=== PATIENT | male | born 1940 ===

== ENCOUNTER 2016-10-11 22:15 | Inpatient (IN) | payer MEDICARE, OTHER ==
[2016-10-11 22:15] VITALS: BMI 18.3
--- NOTE | 2016-10-11 22:46 | C.PDOC ---
History Of Present Illness 76 year old male presents to the ED with complaints of shortness of breath and general malaise. Patient's granddaughter notes he has had not been eating for the past few days. Patient denies any nausea, vomiting, or diarrhea. Chief Complaint (Nursing): Shortness Of Breath History Per: Family (granddaughter ) History/Exam Limitations: no limitations Onset/Duration Of Symptoms: Days Current Symptoms Are (Timing): Still Present Associated Symptoms: denies: Fever, Chills Past Medical History Vital Signs: Last Vital Signs Temp 97.2 F L 10/12/16 16:00 Pulse 114 H 10/12/16 16:37 Resp 17 10/12/16 16:37 BP 111/69 10/12/16 16:37 Pulse Ox 96 10/12/16 16:37 - Medical History PMH: Anemia, Arthritis, COPD, Emphysema, Fractures (ribs), HTN (no longer), Hypercholesterolemia, Malignancy (Lung, in remission) Comment Only: Chronic Kidney Disease (renal insufficiency) Surgical History: Endoscopy, Hernia Repair - [facility] Procedures CONTACT RADIATION OF OTHER BONE (08/12/16) CONTROL BLEEDING IN GASTROINTESTINAL TRACT, ENDO (09/02/16) DRAINAGE OF STOMACH WITH DRAINAGE DEVICE, VIA OPENING (09/02/16) INSERTION OF ENDOTRACHEAL AIRWAY INTO TRACHEA, VIA OPENING (09/02/16) RESECTION OF RIGHT TESTIS, OPEN APPROACH (04/18/16) RESPIRATORY VENTILATION, 24-96 CONSECUTIVE HOURS (09/02/16) RESPIRATORY VENTILATION, GREATER THAN 96 CONSECUTIVE HOURS (04/18/16) SUPPLEMENT R INGUINAL REGION WITH SYNTH SUB, OPEN APPROACH (04/18/16) Family History: States: Unknown Family Hx - Social History Hx Tobacco Use: No Hx Alcohol Use: No Hx Substance Use: No - Immunization History Hx Tetanus Toxoid Vaccination: No Hx Influenza Vaccination: No Hx Pneumococcal Vaccination: No Review Of Systems Constitutional: Positive for: Malaise. Negative for: Fever, Chills Respiratory: Positive for: Shortness of Breath Gastrointestinal: Negative for: Nausea, Vomiting, Abdominal Pain, Diarrhea Physical Exam - Physical Exam Appears: Non-toxic, No Acute Distress Skin: Warm, Dry Head: Normacephalic Neck: Normal ROM, Supple Chest: Symmetrical, No Deformity Cardiovascular: Rhythm Regular, No Murmur Respiratory: Decreased Breath Sounds (left lung ), No Rales, Rhonchi (right lung ), No Stridor, No Wheezing, Other (hypoxia pulse rate 91 ) Gastrointestinal/Abdominal: Soft, No Tenderness, No Distention, No Guarding, No Rebound Extremity: Normal ROM, No Tenderness Neurological/Psych: Oriented x3 ED Course And Treatment - Laboratory Results Result Diagrams: 10/12/16 14:08 10/12/16 14:08 ECG: Interpreted By Me, Viewed By Me ECG Rhythm: Sinus Tachycardia (108 bpm), ST/T Changes (nonspecific T wave abnormality) ECG Interpretation: Abnormal (Left axis deviation) Interpretation Of ECG: Left axis deviation - Radiology CXR: Viewed By Me, Read By Radiologist CXR Interpretation: Yes: Other (increased denisty on left side of the lung in comparison to Chest X-Ray done on 09/07/16 ) Disposition Discussed With DrKristen: Dat [facility] Doctor Will See Patient In The: Hospital Counseled Patient/Family Regarding: Diagnosis - Disposition Disposition: HOSPITALIZED Disposition Time: 00:00 Condition: STABLE - POA Present On Arrival: None - Clinical Impression Clinical Impression: Severe dehydration, Renal insufficiency, Carcinoma, lung - Scribe Statement The provider has reviewed the documentation as recorded by the Scribe Roxana Wiggins All medical record entries made by the Scribe were at my direction and personally dictated by me. I have reviewed the chart and agree that the record accurately reflects my personal performance of the history, physical exam, medical decision making, and the department course for this patient. I have also personally directed, reviewed, and agree with the discharge instructions and disposition.
[2016-10-11] MEDS ORDERED: HYDROmorphone 1 mg/ml ISec IVP STA (22:47)
[2016-10-11] MEDS ORDERED: Sodium Chloride 0.9% 500 ML IV ONE ×2 (22:47→23:57)
[2016-10-11] MEDS ORDERED: HYDROmorphone 1 mg/ml ISec ONE (22:59)
[2016-10-11 23:17] LABS: BASO % 0.1 % (0.0-2.0); HEMATOCRIT 28.3 % (35.0-51.0); LYMPH # 0.3 K/uL (1.0-4.3); LYMPH % 2.2 % (20.0-40.0); MEAN CELL VOLUME 91.8 fL (80.0-94.0); MEAN CORPUSCULAR HEMOGLOBIN 28.5 pg (27.0-31.0); MEAN CORPUSCULAR HGB CONC 31.1 g/dL (33.0-37.0); MEAN PLATELET VOLUME 7.3 fL (7.2-11.7); MONO # 0.7 K/uL (0.0-0.8); MONO % 4.2 % (0.0-10.0); NRBC % 0.2 % (0.0-2.0); PLATELET COUNT 179 K/uL (130-400); RED CELL DISTRIBUTION WIDTH 17.5 % (11.5-14.5); WHITE BLOOD COUNT 15.9 K/uL (4.8-10.8)
[2016-10-11 23:26] LABS: POTASSIUM 6.1 mmol/L (3.6-5.2)
[2016-10-11 23:28] LABS: ALB/GLOB RATIO 0.8 (1.0-2.1); BILIRUBIN,TOTAL 1.2 mg/dL (0.2-1.3)
[2016-10-11 23:29] LABS: CALCIUM 9.6 mg/dl (8.6-10.4)
[2016-10-11 23:38] LABS: NEUTROPHIL 91 % (50-75); TOTAL CELLS COUNTED 100
[2016-10-11] MEDS ORDERED: Albuterol 0.042% Inhal Sol (1.25 mg/3 mL) UD IH STA (23:41)
[2016-10-11] MEDS ORDERED: Albuterol 0.042% Inhal Sol (1.25 mg/3 mL) UD ONE (23:57)
[2016-10-12 00:15] LABS: VENOUS BLOOD GAS BASE EXCESS -6.2 mmol/L (0.0-2.0); VENOUS BLOOD GAS PCO2 39 mmHg (40-60); VENOUS BLOOD PH 7.31 (7.32-7.43)
[2016-10-12 00:17] LABS: ABG ALLEN TEST POS; ARTERIAL BLOOD HGB O2 SAT 95.2 % (95.0-98.0); CARBOXYHEMOGLOBIN 1.7 % (0.5-1.5); DRAW SITE RRAD; HHB 2.3 % (0.0-5.0); METHEMOGLOBIN 0.8 % (0.0-3.0)
--- NOTE | 2016-10-12 02:13 | CP.PCM.HP ---
<Keiry Piedra - Last Filed: 10/12/16 05:23> History of Present Illness - History of Present Illness History of Present Illness: CC: "SOB and fatigue" 76 year old male with PMHx of lung cancer with bone mets, DM, CKD presents to the ED with daughter for shortness of breath, malaise and decreased PO intake for 4 days. Patient is asleep, difficult to arouse from sleep and cannot answer ROS at this time. History as per daughter at bedside. Daughter has noticed patient has been intermittently SOB for the past 4 days. He has been eating very little and she has been feeding him Ensure supplement intermittently. No fevers or chills reported but admits to light dry cough. Patient's cough was reportedly worse 2 weeks ago and was given unknown "medicine " by Dr. Forde, which made it better. Daughter also reports patient has been having some episodes of confusion for the past 4 days and has been calling his parents who are long ago . His last chemotherapy was 2 weeks ago. No chest pain, fevers, chills, nausea, vomiting, diarrhea, constipation, hemoptysis , recent falls. No sick contacts or recent travel. Patient was recently admitted in August of 2016 for GI bleed. Duodenal ulcers treated during EGD on 09/02 with bipolar cautery and epinephrine. Patient was also intubated during same admission. PMHx: DMII, HTN, HLD, CKD, Lung CA with bone mets, mediastinal mass in lower right neck, COPD, GI bleed from duodenal ulcers (08/2016). Surg Hx: endovascular stent abdominal aneurysm repair (16 years ago), right incarcerated hernia, lung biopsy. Fam Hx: denies Social Hx: lives alone in apartment with daughters in same building, not- , former smoker, quit 16 years ago, denies drugs, denies alcohol. Ambulates. PMD: Dr. Kaleigh Ocampo Heme/Onc: Dr. Forde Present on Admission - Present on Admission Any Indicators Present on Admission: No History of DVT/PE: No History of Uncontrolled Diabetes: No Urinary Catheter: No Decubitus Ulcer Present: No Review of Systems - Review of Systems Systems not reviewed;Unavailable: Uncooperative - Constitutional Constitutional: absent: Chills, Fever - EENT Eyes: absent: Blurred Vision, Change in Vision - Cardiovascular Cardiovascular: Dyspnea. absent: Chest Pain - Respiratory Respiratory: Cough, Dyspnea. absent: Hemoptysis - Gastrointestinal Gastrointestinal: absent: Abdominal Pain, Constipation, Diarrhea, Nausea, Vomiting - Genitourinary Genitourinary: absent: Difficulty Urinating, Dysuria - Musculoskeletal Musculoskeletal: Back Pain, Myalgias. absent: Numbness, Tingling - Neurological Neurological: Weakness - Endocrine Endocrine: Fatigue. absent: Palpitations Past Patient History - Infectious Disease Hx of Infectious Diseases: None - Past Medical History & Family History Past Medical History?: Yes - Past Social History Smoking Status: Former Smoker - CARDIAC Hx Hypercholesterolemia: Yes Hx Hypertension: Yes (no longer) - PULMONARY Hx Chronic Obstructive Pulmonary Disease (COPD): Yes Hx Emphysema: Yes - NEUROLOGICAL Hx Neurological Disorder: No - HEENT Hx HEENT Problems: Yes Hx Cataracts: Yes - RENAL Hx Chronic Kidney Disease: (renal insufficiency) - ENDOCRINE/METABOLIC Hx Endocrine Disorders: Yes Hx Diabetes Mellitus Type 2: Yes - HEMATOLOGICAL/ONCOLOGICAL Hx Anemia: Yes - INTEGUMENTARY Hx Dermatological Problems: Yes (enlarged lymph node left neck) - MUSCULOSKELETAL/RHEUMATOLOGICAL Hx Arthritis: Yes Hx Fractures: Yes (ribs) - GASTROINTESTINAL Hx Gastrointestinal Disorders: No - GENITOURINARY/GYNECOLOGICAL Hx Genitourinary Disorders: No - PSYCHIATRIC Hx Substance Use: No - SURGICAL HISTORY Hx Surgeries: Yes Hx Abdominal Aortic Aneurysm Repair: Yes Hx Herniorrhaphy: Yes (right ing hernia repair) Hx Vascular Surgery: Yes (aneurysm with stents) - ANESTHESIA Hx Anesthesia: Yes Hx Anesthesia Reactions: No Hx Malignant Hyperthermia: No Meds Allergies/Adverse Reactions: Allergies Allergy/AdvReac Type Severity Reaction Status Date / Time No Known Allergies Allergy Verified 08/21/16 18:25 Physical Exam - Constitutional Appears: No Acute Distress, Chronically Ill - Head Exam Head Exam: NORMAL INSPECTION, NORMOCEPHALIC - Eye Exam Eye Exam: EOMI, Normal appearance - ENT Exam ENT Exam: Mucous Membranes Dry - Neck Exam Additional comments: +mass in right lower neck - Respiratory Exam Respiratory Exam: Rhonchi, NORMAL BREATHING PATTERN. absent: Rales, Wheezes - Cardiovascular Exam Cardiovascular Exam: Tachycardia, REGULAR RHYTHM, +S1, +S2. absent: Systolic Murmur - GI/Abdominal Exam GI & Abdominal Exam: Normal Bowel Sounds, Soft. absent: Distended, Tenderness - Extremities Exam Extremities exam: Positive for: full ROM, normal inspection. Negative for: pedal edema - Neurological Exam Neurological exam: Altered - Skin Skin Exam: Dry, Normal Color, Warm Results - Vital Signs Recent Vital Signs: Last Vital Signs Temp Pulse Resp 19 10/11/16 22:43 BP Pulse Ox 100 10/11/16 22:43 - Labs Result Diagrams: 10/12/16 04:45 10/11/16 23:14 Labs: Laboratory Results - last 24 hr 10/12/16 00:09 Puncture Site Rrad pCO2 41 pO2 88 HCO3 18.4 L ABG pH 7.26 L ABG Total CO2 19.7 L ABG O2 Saturation 97.6 ABG Base Excess -8.3 L ABG Hemoglobin 15.8 ABG Carboxyhemoglobin 1.7 H POC ABG HHb (Measured) 2.3 ABG Methemoglobin 0.8 Wayne Test Pos VBG pH 7.31 L VBG pCO2 39 L VBG HCO3 19.9 VBG Total CO2 20.8 L VBG O2 Sat (Calc) 96.0 H VBG Base Excess -6.2 L VBG Potassium 6.4 H* Hgb O2 Saturation 95.2 Sodium 138.0 Chloride 103.0 Glucose 137 H Lactate 2.4 H Liter Flow 8.0 Crit Value Called To Dr del rio Crit Value Called By Bruce prater rrt Crit Value Read Back N Blood Gas Notified Time 16 Venous Blood Potassium 6.4 H* Assessment & Plan (1) Elevated troponin Assessment and Plan: Admit to Tele. EKG on admission shows sinus Tachycardia (108 bpm), with nonspecific T wave changes. ANDREY #1 elevated 0.1260. f/u ANDREY Q6H f/u EKG Q6H Cardio consult placed- Dr. Robb Mcpherson- help appreciated. Anticoagulation held at this time for recent GI bleed. f/u cardio recs Status: Acute (2) Pneumonia Assessment and Plan: Pneumonia complicated by history of lung cancer. WBC on admission 15.9 with left shift. Tachycardic HR 110's. Afebrile. Lactid Acid: 2.4 on admission. F/u repeat Lactid Acid. CXR shows increased density on left side of the lung in comparison to Chest X- Ray done on 09/07/16. f/u official report Rocephin IVPB- Day 1 Azithromycin IVPB- Day 1 f/u sputum Cx f/u CBC in the AM. Status: Acute (3) Shortness of breath Assessment and Plan: EKG on admission shows sinus Tachycardia (108 bpm), with nonspecific T wave changes. ANDREY #1 elevated 0.1260. f/u ANDREY Q6H f/u EKG Q6H Cardio consult placed- Dr. Robb Mcpherson- help appreciated. Anticoagulation held at this time for recent GI bleed. f/u V/Q Scan. Status: Acute (4) Leukocytosis Assessment and Plan: WBC on admission 15.9 with left shift. Afebrile. Likely secondary to pneumonia seen on CXR. f/u UA, Urine Cx, Blood Cx, sputum Cx. Lactic Acid: 2.4 on admission. f/u repeat lactid acid. f/u CBC in the AM. Status: Acute (5) Renal failure (ARF), acute on chronic Assessment and Plan: BUN 100, Cr 8.1 on admission. Nephro consult placed-Dr. Queen- help appreciated. As per Dr. Queen, no emergent HD at this time. f/u Renal US and IVF. Start NSS at 100 cc/hr. Renal US ordered as per Dr. Queen. Preliminary report shows b/l hydronephrosis and possible non obstructing right lower pole urolith. f/u official report f/u CMP in the AM. f/u UA and C&S Status: Acute (6) Hyperkalemia Assessment and Plan: K+ on admission 6.1 Duoneb Tx given in ED. Kayexalate PO ONCE. f/u CMP in the AM. f/u Mag in the AM. Status: Acute (7) Carcinoma, lung Assessment and Plan: Patient with Mets to the bone and right mediastinal mass in right lower neck. Patient follows with Dr. Forde as outpatient. Recent chemo 2 weeks ago. Radiation as outpatient with Dr. Thomas. Morphine 4 mg IVP Q4H PRN for severe pain Patient's Heme/Onc- Dr. Forde- consulted- Help appreciated. Status: Acute (8) COPD (chronic obstructive pulmonary disease) Assessment and Plan: ABG on admission shows 7.26///18.4/-8.3/97.6 Duonebs Q6H PRN. Status: Chronic (9) Metabolic acidosis Assessment and Plan: ABG on admission: 7.26//88/18.4/-8.3/97.6 Lactid Acid 2.4. f/u repeat Lactid acid. A Status: Acute (10) Diabetes mellitus Assessment and Plan: ISS ACCUCHECKS ACHS Status: Chronic (11) Elevated LFTs Assessment and Plan: AST 84, ALT 28. Improved compared to past visits. f/u Hep panel Status: Acute (12) Prophylactic measure Assessment and Plan: SCDs Chemical AC contraindicated due to history of recent GI bleed 08/2016. Protonix 40 mg IVP daily Swallow eval Physical Therapy Status: Acute <JeffersonDat ernandez Susan - Last Filed: 10/12/16 06:21> Results - Vital Signs Recent Vital Signs: Last Vital Signs Temp 97.7 F 10/12/16 02:44 Pulse 111 H 10/12/16 03:12 Resp 16 10/12/16 03:12 BP 130/79 10/12/16 03:12 Pulse Ox 99 10/12/16 03:12 - Labs Result Diagrams: 10/12/16 04:45 10/12/16 04:45 Labs: Laboratory Results - last 24 hr 10/12/16 10/12/16 10/12/16 00:09 04:45 04:50 WBC 16.8 H RBC 3.18 L Hgb 9.2 L Hct 29.8 L MCV 93.8 D MCH 29.0 MCHC 30.9 L RDW 18.1 H Plt Count 189 MPV 7.4 Neut % (Auto) 92.3 H Lymph % (Auto) 2.5 L Cassia % (Auto) 4.8 Eos % (Auto) 0.0 Baso % (Auto) 0.4 Neut # 15.5 H Lymph # 0.4 L Cassia # 0.8 Eos # 0.0 Baso # 0.1 Puncture Site Rrad pCO2 41 pO2 88 HCO3 18.4 L ABG pH 7.26 L ABG Total CO2 19.7 L ABG O2 Saturation 97.6 ABG Base Excess -8.3 L ABG Hemoglobin 15.8 ABG Carboxyhemoglobin 1.7 H POC ABG HHb (Measured) 2.3 ABG Methemoglobin 0.8 Wayne Test Pos VBG pH 7.31 L VBG pCO2 39 L VBG HCO3 19.9 VBG Total CO2 20.8 L VBG O2 Sat (Calc) 96.0 H VBG Base Excess -6.2 L VBG Potassium 6.4 H* Hgb O2 Saturation 95.2 Sodium 138.0 136 Chloride 103.0 103 Glucose 137 H Lactate 2.4 H Liter Flow 8.0 Crit Value Called To Dr del rio Crit Value Called By Bruce prater info print press operator Crit Value Read Back N Blood Gas Notified Time 16 Potassium 6.7 H* Carbon Dioxide 15 L Anion Gap 25 H BUN 99 H Creatinine 7.8 H* Est GFR ( Amer) 8 Est GFR (Non-Af Amer) 7 Random Glucose 108 Calcium 9.1 Phosphorus 6.5 H Magnesium 2.6 H Total Bilirubin 1.1 AST 85 H ALT 38 Alkaline Phosphatase 393 H Total Creatine Kinase 62 Troponin I, Quant 0.1260 H* Total Protein 7.0 Albumin 2.8 L Globulin 4.2 H Albumin/Globulin Ratio 0.7 L Venous Blood Potassium 6.4 H* Influenza Typ A,B (EIA) Negative for flu a/b Assessment & Plan - Date & Time Date: 10/12/16 (I have seen and examined the patient. I agree with the findings and plan of care as documented by Dr. Piedra. Patient with history of lung CA. Now with SIRS, pneumonia, and positive troponin. Consult to Cardio. Azithromycin and Rocephin. Check blood cultures. Consult to nephro. IVF hydration. Will consult ICU for possible admission to ICU.) Time: 06:17
[2016-10-12] MEDS ORDERED: Oxycodone/Acetaminophen 5/325 mg Tab PO PRN (03:30)
[2016-10-12] MEDS: Sod Polystyrene Sulf 15 gm/60 ml Oral Susp PO ONE ×2 (04:45→04:59)
[2016-10-12 05:04] LABS: BASO # 0.1 K/uL (0.0-0.2); BASO % 0.4 % (0.0-2.0); HEMATOCRIT 29.8 % (35.0-51.0); LYMPH # 0.4 K/uL (1.0-4.3); LYMPH % 2.5 % (20.0-40.0); MEAN CELL VOLUME 93.8 fL (80.0-94.0); MEAN CORPUSCULAR HGB CONC 30.9 g/dL (33.0-37.0); MEAN PLATELET VOLUME 7.4 fL (7.2-11.7); MONO # 0.8 K/uL (0.0-0.8); MONO % 4.8 % (0.0-10.0); NRBC % 0.1 % (0.0-2.0); PLATELET COUNT 189 K/uL (130-400); RED CELL DISTRIBUTION WIDTH 18.1 % (11.5-14.5); WHITE BLOOD COUNT 16.8 K/uL (4.8-10.8)
[2016-10-12 05:06] LABS: BILIRUBIN,TOTAL 1.1 mg/dL (0.2-1.3)
[2016-10-12 05:07] LABS: ALB/GLOB RATIO 0.7 (1.0-2.1); CALCIUM 9.1 mg/dl (8.6-10.4)
[2016-10-12 05:08] LABS: MAGNESIUM 2.6 mg/dL (1.6-2.3)
[2016-10-12 05:25] LABS: POTASSIUM 6.7 mmol/L (3.6-5.2)
[2016-10-12 06:43] LABS: NEUTROPHIL 90 % (50-75); TOTAL CELLS COUNTED 100
[2016-10-12] MEDS ORDERED: Sodium Bicarbonate (8.4%) 50 Meq Syringe IVP ONE (07:02)
[2016-10-12] MEDS ORDERED: Sodium Polystyrene Sulfonate Enema 30 gm/120 ml PR ONE ×3 (07:12→19:30)
[2016-10-12] MEDS ORDERED: Sodium Bicarbonate 8.4% 150 MEQ in Dextrose 5% In Water 1,000 ML IV SCH (07:30)
[2016-10-12] MEDS ORDERED: (Novolin R) Insulin Human Regular 100 units/ml vial SC SCH (07:30)
--- NOTE | 2016-10-12 08:04 | CP.PCM.CON ---
History of Present Illness - History of Present Illness History of Present Illness: CRITICAL CARE CONSULT NOTE: As noted in the History and Physical: CC: "SOB and fatigue" 76 year old male with PMHx of lung cancer with bone mets, DM, CKD presents to the ED with daughter for shortness of breath, malaise and decreased PO intake for 4 days. Patient is asleep, difficult to arouse from sleep and cannot answer ROS at this time. History as per daughter at bedside. Daughter has noticed patient has been intermittently SOB for the past 4 days. He has been eating very little and she has been feeding him Ensure supplement intermittently. No fevers or chills reported but admits to light dry cough. Patient's cough was reportedly worse 2 weeks ago and was given unknown "medicine " by Dr. Forde, which made it better. Daughter also reports patient has been having some episodes of confusion for the past 4 days and has been calling his parents who are long ago . His last chemotherapy was 2 weeks ago. No chest pain, fevers, chills, nausea, vomiting, diarrhea, constipation, hemoptysis , recent falls. No sick contacts or recent travel. Patient was recently admitted in August of 2016 for GI bleed. Duodenal ulcers treated during EGD on 09/02 with bipolar cautery and epinephrine. Patient was also intubated during same admission. PMHx: DMII, HTN, HLD, CKD, Lung CA with bone mets, mediastinal mass in lower right neck, COPD, GI bleed from duodenal ulcers (08/2016). Surg Hx: endovascular stent abdominal aneurysm repair (16 years ago), right incarcerated hernia, lung biopsy. Fam Hx: denies Social Hx: lives alone in apartment with daughters in same building, not- , former smoker, quit 16 years ago, denies drugs, denies alcohol. Ambulates. Allergies: NKDA PMD: Dr. Kaleigh Ocampo Heme/Onc: Dr. Forde Review of Systems - Constitutional Constitutional: As Per HPI. absent: Headache - EENT Eyes: absent: Blurred Vision, Change in Vision Nose/Mouth/Throat: absent: Nasal Congestion, Nasal Discharge - Cardiovascular Cardiovascular: Dyspnea. absent: Chest Pain, Chest Pain at Rest - Respiratory Respiratory: Dyspnea, Stridor - Gastrointestinal Gastrointestinal: Abdominal Pain. absent: Nausea, Vomiting - Genitourinary Genitourinary: Urinary Hesitance - Musculoskeletal Musculoskeletal: Arthralgias, Neck Pain - Integumentary Integumentary: absent: Change in Hair, Dry Skin - Neurological Neurological: absent: Abnormal Hearing, Abnormal Movements, Confusion, Numbness - Psychiatric Psychiatric: absent: Anhedonia - Endocrine Endocrine: absent: Change in Body Appearance - Hematologic/Lymphatic Hematologic: absent: As Per HPI Past Patient History - Infectious Disease Hx of Infectious Diseases: None - Past Medical History & Family History Past Medical History?: Yes - Past Social History Smoking Status: Former Smoker - CARDIAC Hx Hypercholesterolemia: Yes Hx Hypertension: Yes (no longer) - PULMONARY Hx Chronic Obstructive Pulmonary Disease (COPD): Yes Hx Emphysema: Yes - NEUROLOGICAL Hx Neurological Disorder: No - HEENT Hx HEENT Problems: Yes Hx Cataracts: Yes - RENAL Hx Chronic Kidney Disease: (renal insufficiency) - ENDOCRINE/METABOLIC Hx Endocrine Disorders: Yes Hx Diabetes Mellitus Type 2: Yes - HEMATOLOGICAL/ONCOLOGICAL Hx Anemia: Yes - INTEGUMENTARY Hx Dermatological Problems: Yes (enlarged lymph node left neck) - MUSCULOSKELETAL/RHEUMATOLOGICAL Hx Arthritis: Yes Hx Fractures: Yes (ribs) - GASTROINTESTINAL Hx Gastrointestinal Disorders: No - GENITOURINARY/GYNECOLOGICAL Hx Genitourinary Disorders: No - PSYCHIATRIC Hx Substance Use: No - SURGICAL HISTORY Hx Surgeries: Yes Hx Abdominal Aortic Aneurysm Repair: Yes Hx Herniorrhaphy: Yes (right ing hernia repair) Hx Vascular Surgery: Yes (aneurysm with stents) - ANESTHESIA Hx Anesthesia: Yes Hx Anesthesia Reactions: No Hx Malignant Hyperthermia: No Meds Allergies/Adverse Reactions: Allergies Allergy/AdvReac Type Severity Reaction Status Date / Time No Known Allergies Allergy Verified 08/21/16 18:25 - Medications Medications: Current Medications Albuterol/Ipratropium (Duoneb 3 Mg/0.5 Mg (3 Ml) Ud) 3 ml INH RQ6 JACKIE Docusate Sodium (Colace) 100 mg PO BID [facility] Ceftriaxone Sodium 1 gm/ (Sodium Chloride) 100 mls @ 100 mls/hr IVPB Q12H JACKIE Stop: 10/31/16 16:29 Last Admin: 10/12/16 04:45 Dose: 100 mls/hr Azithromycin 500 mg/ Sodium (Chloride) 250 mls @ 250 mls/hr IVPB DAILY [facility] Sodium Bicarbonate 150 meq/ (Dextrose) 1,150 mls @ 80 mls/hr IV .[id number] [facility] Morphine Sulfate (Morphine) 2 mg IVP Q4H PRN PRN Reason: Pain, severe (8-10) Pantoprazole Sodium (Protonix Inj) 40 mg IVP DAILY JACKIE Rosuvastatin Calcium (Crestor) 2.5 mg PO HS JACKIE Physical Exam - Constitutional Appears: In Acute Distress Additional comments: initially noted to be in acute distress on NRB requiring BIPAP therapy. Afterwards, stabilized - Head Exam Head Exam: ATRAUMATIC, NORMAL INSPECTION, NORMOCEPHALIC - Eye Exam Eye Exam: EOMI, Normal appearance, PERRL Pupil Exam: NORMAL ACCOMODATION - ENT Exam ENT Exam: Mucous Membranes Dry - Neck Exam Neck exam: Negative for: Normal Inspection Additional comments: neck mass noted - Respiratory Exam Respiratory Exam: Stridor. absent: NORMAL BREATHING PATTERN - Cardiovascular Exam Cardiovascular Exam: +S1, +S2 - GI/Abdominal Exam GI & Abdominal Exam: Distended, Normal Bowel Sounds, Soft, Tenderness (RLQ intermittent). absent: Firm, Guarding, Rigid - Exam Exam: absent: Bladder Distension - Extremities Exam Extremities exam: Positive for: full ROM, normal capillary refill, normal inspection. Negative for: pedal pulses present - Back Exam Back exam: FULL ROM - Neurological Exam Neurological exam: Alert - Psychiatric Exam Psychiatric exam: Normal Affect, Normal Mood - Skin Skin Exam: Dry, Normal Color, Warm Results - Vital Signs Recent Vital Signs: Last Vital Signs Temp 97.7 F 10/12/16 02:44 Pulse 113 H 10/12/16 07:22 Resp 20 10/12/16 07:22 BP 143/78 10/12/16 07:22 Pulse Ox 97 10/12/16 07:22 - Labs Result Diagrams: 10/12/16 14:08 10/12/16 14:08 Labs: Laboratory Results - last 24 hr 10/12/16 10/12/16 10/12/16 00:09 04:45 04:50 WBC 16.8 H RBC 3.18 L Hgb 9.2 L Hct 29.8 L MCV 93.8 D MCH 29.0 MCHC 30.9 L RDW 18.1 H Plt Count 189 MPV 7.4 Neut % (Auto) 92.3 H Lymph % (Auto) 2.5 L Hudson % (Auto) 4.8 Eos % (Auto) 0.0 Baso % (Auto) 0.4 Neut # 15.5 H Lymph # 0.4 L Hudson # 0.8 Eos # 0.0 Baso # 0.1 Neutrophils % (Manual) 90 H Band Neutrophils % 2 Lymphocytes % (Manual) 4 L Monocytes % (Manual) 4 Platelet Estimate Normal Puncture Site Rrad pCO2 41 pO2 88 HCO3 18.4 L ABG pH 7.26 L ABG Total CO2 19.7 L ABG O2 Saturation 97.6 ABG Base Excess -8.3 L ABG Hemoglobin 15.8 ABG Carboxyhemoglobin 1.7 H POC ABG HHb (Measured) 2.3 ABG Methemoglobin 0.8 Wayne Test Pos VBG pH 7.31 L VBG pCO2 39 L VBG HCO3 19.9 VBG Total CO2 20.8 L VBG O2 Sat (Calc) 96.0 H VBG Base Excess -6.2 L VBG Potassium 6.4 H* Hgb O2 Saturation 95.2 Sodium 138.0 136 Chloride 103.0 103 Glucose 137 H Lactate 2.4 H Liter Flow 8.0 Crit Value Called To Dr del rio Crit Value Called By Bruce prater financial management Crit Value Read Back N Blood Gas Notified Time 16 Potassium 6.7 H* Carbon Dioxide 15 L Anion Gap 25 H BUN 99 H Creatinine 7.8 H* Est GFR ( Amer) 8 Est GFR (Non-Af Amer) 7 Random Glucose 108 Lactic Acid Calcium 9.1 Phosphorus 6.5 H Magnesium 2.6 H Total Bilirubin 1.1 AST 85 H ALT 38 Alkaline Phosphatase 393 H Total Creatine Kinase 62 Troponin I, Quant 0.1260 H* Total Protein 7.0 Albumin 2.8 L Globulin 4.2 H Albumin/Globulin Ratio 0.7 L Venous Blood Potassium 6.4 H* Hepatitis A IgM Ab Hep Bs Antigen Hep B Core IgM Ab Hepatitis C Antibody Influenza Typ A,B (EIA) Negative for flu a/b 10/12/16 10/12/16 05:38 06:14 WBC RBC Hgb Hct MCV MCH MCHC RDW Plt Count MPV Neut % (Auto) Lymph % (Auto) Hudson % (Auto) Eos % (Auto) Baso % (Auto) Neut # Lymph # Hudson # Eos # Baso # Neutrophils % (Manual) Band Neutrophils % Lymphocytes % (Manual) Monocytes % (Manual) Platelet Estimate Puncture Site pCO2 pO2 HCO3 ABG pH ABG Total CO2 ABG O2 Saturation ABG Base Excess ABG Hemoglobin ABG Carboxyhemoglobin POC ABG HHb (Measured) ABG Methemoglobin Wayne Test VBG pH VBG pCO2 VBG HCO3 VBG Total CO2 VBG O2 Sat (Calc) VBG Base Excess VBG Potassium Hgb O2 Saturation Sodium Chloride Glucose Lactate Liter Flow Crit Value Called To Crit Value Called By Crit Value Read Back Blood Gas Notified Time Potassium Carbon Dioxide Anion Gap BUN Creatinine Est GFR ( Amer) Est GFR (Non-Af Amer) Random Glucose Lactic Acid 1.7 Calcium Phosphorus Magnesium Total Bilirubin AST ALT Alkaline Phosphatase Total Creatine Kinase Troponin I, Quant Total Protein Albumin Globulin Albumin/Globulin Ratio Venous Blood Potassium Hepatitis A IgM Ab Negative Hep Bs Antigen Negative Hep B Core IgM Ab Negative Hepatitis C Antibody Negative Influenza Typ A,B (EIA) Assessment & Plan - Assessment and Plan (Free Text) Assessment: 76 year old male with PMHx significant for Lung Ca with bone metastasis and mediastinal mass in lower right neck, HTN, DM II,HLD, CKD, presents with increased work of breathing secondary to cancer pushing against trachea narrowing the airway. Patient had an episode of respiratory distress earlier requiring BiPAP. Patient to be monitored in the case that an intubation is required in order to protect the airway. Plan: Neuro: [id number] Cardio: Elevated troponin likely due EKG on admission: sinus Tach with nonspecific T wave changes ANDREY # 1 and 2 mildly elevated. F/U ANDREY [address] Dr. Cj Mcpherson consulted Anticoagulation held for recent GI bleed Pulm: Hx of SOB Pt in mild distress earlier while on NRB. Patient switched to BPAP 50% FiO2. Pt monitored closely in the case that intubation is required CT chest done- confirming cancer findings CXR shows increased density on left side of the lung in comparison to Chest X- Ray done on 09/07/16. F/U VQ scan Pneumonia with Lung cancer findings WBC on admission 15.9 with left shift. Tachycardic HR 110's. Afebrile. Lactic Acid: 2.4 on admission. F/U Repeat Lactid Acid. Rocephin IVPB- Day 1 Azithromycin IVPB- Day 1 f/u sputum Cx f/u CBC in the AM. Duonebs Q6H PRN GI: NPO at this time Pt has difficulty swallowing at this time. May require swallow eval Elevated LFTs- Hep panel- negative Endo: ISS Accuchecks Heme: Lung Ca, Neck mass- suspected mets. F/U imaging to determine locations Dr. Forde ( [facility]) consulted Nephro: Poor Kidney function Nephro consult No Urine output Bladder scan- Not retaining Hyperkalemia- Calcium gluconate, Kayexelate, D50 Sodium bicarb amp , Bicarb drip at 40cc F/U repeat Potassium at 20:00 Metabolic acidosison admission MSK: Venous dopplers negative Palliative: Daughter made of aware of prognosis for patient As of now, DNR/DNI measures explained but patient has not yet made a decision Prophylaxis: SCDs Chemical anticoagulation contraindicated due to hx of recent GI bleed on Aug 2016 admission Swallow eval will be needed
[2016-10-12] MEDS ORDERED: Sodium Bicarbonate (8.4%) 50 Meq Syringe ONE (08:09)
--- NOTE | 2016-10-12 08:26 | RAD ---
PROCEDURE: CHEST RADIOGRAPH, 1 VIEW HISTORY: Shortness of breath COMPARISON: 09/07/2016 FINDINGS: LUNGS: Worsening ill-defined consolidative changes throughout the left lung. Small nodular density at the lateral aspect of the right lung base. Left pleural effusion. PLEURA: As above. CARDIOVASCULAR: Tortuous ectatic aorta. Mild cardiomegaly. OSSEOUS STRUCTURES: No significant abnormalities. VISUALIZED UPPER ABDOMEN: Normal. OTHER FINDINGS: None. IMPRESSION: Worsening airspace opacifications as well as effusion in the left lung in a patient with a known history of lung cancer.
--- NOTE | 2016-10-12 08:57 | US ---
PROCEDURE: Ultrasound of the Kidneys HISTORY: renal dysfunction COMPARISON: None available. TECHNIQUE: Sonogram of the kidneys. FINDINGS: RIGHT KIDNEY: Measures: 8.7 cm. Diffusely mildly increased renal cortical echogenicity. No mass. Questionable calculus in lower pole collecting system without posterior acoustic shadowing, 3 mm diameter. . Moderate hydronephrosis. Upper pole cortical cyst, 1.3 x 1.4 x 1.5 cm. LEFT KIDNEY: Measures: 8.7 cm. Mild diffuse increased renal cortical echogenicity. Moderate hydronephrosis. Two simple cysts. Upper pole, 1.5 x 1.7 x 2.0 cm. Mid kidney, 1.3 x 1.6 x 1.6 cm. No calculus. OTHER FINDINGS: None. IMPRESSION: Bilateral moderate hydronephrosis. Bilateral mild diffusely increased renal cortical echogenicity which may reflect diffuse medical renal disease. Questionable non shadowing calculus in lower pole right kidney, 3 mm. Preliminary interpretation of this examination was reported by [facility] at 1:03 a.m. on 10/12/2016. There is concurrence of this report with the preliminary interpretation.
[2016-10-12] MEDS ORDERED: Pantoprazole 40 mg EC Tab PO SCH (10:00)
[2016-10-12] MEDS: Sodium Bicarbonate 8.4% 150 MEQ in Dextrose 5% In Water 1,000 ML IV SCH (10:00)
--- NOTE | 2016-10-12 10:03 | CT ---
PROCEDURE: CT HEAD WITHOUT CONTRAST. HISTORY: confusion COMPARISON: 09/02/2016 TECHNIQUE: Axial computed tomography images were obtained through the head/brain without intravenous contrast. Radiation dose: Total exam DLP = 1105.02 mGy-cm. FINDINGS: HEMORRHAGE: No intracranial hemorrhage. BRAIN: No mass effect or edema. Minimal diffuse age-appropriate cerebral atrophy. Bilateral small old basal ganglia lacunar infarcts. Old right thalamic lacunar infarct. Moderate periventricular white matter lucency consistent with age-related microvascular ischemic change. VENTRICLES: Unremarkable. No hydrocephalus. CALVARIUM: Unremarkable. PARANASAL SINUSES: Chronic sphenoid, ethmoid and left maxillary sinusitis. Air-fluid level in left maxillary antrum may reflect acute sinusitis. Please correlate. MASTOID AIR CELLS: Unremarkable as visualized. No inflammatory changes. OTHER FINDINGS: Soft tissue density in right external auditory canal most likely represents impacted cerumen. IMPRESSION: No intracranial hemorrhage. Old bilateral basal ganglia lacunar infarcts. No evidence of acute infarct. Chronic microvascular white matter ischemic change. Chronic paranasal sinusitis with air-fluid level in left maxillary sinus which may reflect acute sinusitis. Please correlate clinically. This CT exam was performed using one or more of the following dose reduction techniques: Automated exposure control, adjustment of the mA and/or kV according to patient size, and/or use of iterative reconstruction technique.
[2016-10-12] MEDS ORDERED: HYDROmorphone 0.5 mg/0.5 ml ISec IVP STA ×2 (10:32→19:18)
[2016-10-12] MEDS: Albuterol-Ipratrop 3 mg / 0.5 (3 ml) UD INH SCH ×3 (11:00→19:35)
--- NOTE | 2016-10-12 11:29 | NM ---
COMPARISON: October 12, 2016. TECHNIQUE: 6.1 mCi technetium 99-m Xe-133 Gas. 3.9 mCI technetium 99-m MAA administered intravenously. FINDINGS: VENTILATION COMPONENT: Preferential ventilation of the right lung compared the left consistent with findings on concurrent CT thorax. Ventilatory abnormalities left upper lobe larger than perfusion abnormalities left lung. PERFUSION COMPONENT: Normal ventilation right lung. Heterogeneous ventilation left lung particularly left upper lobe. Findings are consistent with airspace disease, space-occupying pulmonary parenchymal findings left upper lobe. . IMPRESSION: Low probability ventilation perfusion scan for pulmonary embolism.
--- NOTE | 2016-10-12 11:43 | CT ---
CT scan of the neck dated 10/12/2016. History: Neck mass. CT of the neck without intravenous contrast. Coronal and sagittal reformats generated. No prior study available for comparison. Radiation dose: DLP 380.84 mGy-cm This CT exam was performed using one or more of the following dose reduction techniques: Automated exposure control, adjustment of the mA and/or kV according to patient size, and/or use of iterative reconstruction technique. . Findings: The current study reveals large somewhat lobulated homogeneous mass in the right mid to -inferior aspect of the neck which measures approximately 8.1 cm cc x 7.9 cm AP x 4.3 cm trans min. This most likely represents a conglomeration of cervical adenopathy. . There are also multiple varying sized small to significantly enlarged lymph nodes are also seen bilaterally within the jugulodigastric, posterior jugular chain, and supraclavicular (regions more numerous and larger on the right than the left). . The largest on left jugulodigastric lymph node measures approximately 2.1 cm. Smaller bilateral submandibular lymph nodes are present. Additionally enlarged on mediastinal masses are also present which are seen to much better advantage on concurrent CT scan of the chest. . Findings could represent metastatic malignant adenopathy . This large mass and associated surrounding adenopathy exert mass effect on the right neurovascular bundle which is compressed and displaced medially. The airway is also a mildly displaced on though patent. There is secondary asymmetry of the vallecula and pyriform sinuses as a result, right side of which is compressed and smaller than the left. . There is significant compression of the airway at the level of the thoracic inlet which is markedly compressed medially by bilateral on mediastinal adenopathy. The airway measures approximately 15.5 mm AP x the 3.5 mm trans. Significant at centrilobular emphysematous changes are present in the lung apices with honeycombing -fibrosis in the left upper lobe. Small blebs are present as well. Mild pleural thickening left maxillary and sphenoid sinuses. . Impression: Larger sided neck mass lobulated predominately homogeneous right-sided neck mass most likely representing conglomeration most consistent with malignant metastatic adenopathy . Additionally, there are multiple on bilateral cervical lymph nodes larger and more numerous on the right-sided neck extending into the supraclavicular region. Significant on bilateral upper mediastinal adenopathy which significantly compresses the airway at the level of the thoracic inlet. ICU game farm helper Dr. Burks informed of these findings at 11:40 a.m. with written down and read back verification
[2016-10-12] MEDS: Azithromycin 500 MG in Sodium Chloride 0.9% 250 ML IVPB SCH (11:46)
--- NOTE | 2016-10-12 12:19 | CT ---
CT chest, abdomen, and pelvis without IV contrast Indication: pna, chest, neck mass, abd distension Technique: Contiguous axial images of the chest, abdomen, and pelvis without oral or IV contrast. Coronal and Sagittal reformats generated and reviewed. This CT exam was performed using 1 or more of the falling dose reduction techniques: Automated exposure control, adjustment of the MAA and/or kV according to patient size, and/or use of iterative reconstruction technique Radiation dose: Total exam DLP = 614.10 MGy-cm. Comparison: CT abdomen and pelvis without IV contrast performed 09/05/16, CT chest, abdomen, and pelvis performed 08/21/16 Findings: Incompletely imaged soft tissue mass involving the right lower neck with supraclavicular bulky adenopathy and upper peritracheal adenopathy extending into the mediastinum ; please refer to soft tissue neck CT performed concurrently for more detailed discussion. Significant bilateral upper mediastinal adenopathy which significantly compresses the airway at the level of the thoracic inlet.Please note that lack of IV contrast limits evaluation for adenopathy, in particular hilar adenopathy. Heart size appears within normal limits. Trace pericardial fluid. Centrilobular emphysema. Fibrosis and scarring as well as bronchiectasis most evident in the left upper lobe. Dense consolidation within the left upper lobe/ lingula. Evaluation of previously demonstrated spiculated nodule in a left upper lobe is obscured by consolidation. 2.0 x 0.9 cm this subpleural soft tissue with associated osseous destruction of the right 7th rib. Fracture deformity noted of the right 6th rib. Right 9th, 10th, and 11th rib fracture deformities presumably chronic. Interval development of 5 mm subpleural right upper lobe pulmonary nodular density (series 4, image 22). Small bilateral pleural effusions. Bibasilar dependent consolidations. Left lower lobe infiltrate. No pneumothorax. Small perihepatic ascites. Nodular hepatic contour. Heterogeneous hepatic parenchyma with suspected low-density masses in the left hepatic lobe. Indeterminate 9 mm splenic hypodensity, anterior upper spleen. The noncontrast exophytic 14 mm left upper pole renal hypodensity measures approximately 19 HU, higher than expected for simple cyst. No hydronephrosis bilaterally. Atrophic pancreas. Peripancreatic and pancreatic edema. Nodular left adrenal gland. The noncontrast right adrenal gland appears unremarkable. Gallbladder wall thickening versus peripancreatic edema. The stomach is nondistended. Small hiatal hernia. Bulky mesenteric adenopathy including peripancreatic lymph nodes measuring up to 2.5 cm in short axis. Bulky retroperitoneal adenopathy. Lack of oral contrast limits evaluation for bowel pathology. The bowel loops appear within normal limits of caliber without evidence of intestinal obstruction. Diverticulosis without CT evidence of acute diverticulitis. Mild colonic thickening involving the left colon near the splenic flexure. Pericecal inflammatory stranding. Appearance suspected to reflect colitis (i.e. infectious, inflammatory, ischemic. There is no definite free air. The appendix is not identified. Atherosclerotic calcifications of the aorta. Infrarenal abdominal aortic aneurysm with aorto bi-iliac endo graft. Evaluation is limited by lack of contrast material. The prostate gland measures approximately 3.0 x 3.9 cm. Under distended urinary bladder precludes adequate evaluation. Postsurgical changes of the right groin. Small pelvic free fluid. Chronic appearing fracture deformity of the manubrium. Compression fracture deformities involving T5, T6, L4. Osseous fracture or erosion involving the left transverse process of L4. Impression: Incompletely imaged soft tissue mass involving the right lower neck with supraclavicular bulky adenopathy and upper peritracheal adenopathy extending into the mediastinum. Significant bilateral upper mediastinal adenopathy which significantly compresses the airway at the level of the thoracic inlet. Please refer to soft tissue neck CT performed concurrently for more detailed discussion. Centrilobular emphysema. Fibrosis and scarring as well as bronchiectasis most evident in the left upper lobe. Dense consolidation within the left upper lobe/ lingula. Small bilateral pleural effusions. Bibasilar dependent consolidations. Left lower lobe infiltrate. Evaluation of previously demonstrated spiculated nodule in a left upper lobe is obscured by consolidation. 2.0 x 0.9 cm subpleural soft tissue with associated osseous destruction of the right 7th rib. Fracture deformity noted of the right 6th rib. Right 9th, 10th, and 11th rib fracture deformities presumably chronic. Interval development of 5 mm subpleural right upper lobe pulmonary nodular density. Small perihepatic ascites. Nodular hepatic contour. Heterogeneous hepatic parenchyma with suspected low-density masses in the left hepatic lobe. Indeterminate 9 mm splenic hypodensity, anterior upper spleen. Exophytic 14 mm left upper pole renal hypodensity measures approximately 19 HU, higher than expected for simple cyst. Atrophic pancreas. Peripancreatic and pancreatic edema. Nodular left adrenal gland. Gallbladder wall thickening versus peripancreatic edema. Bulky mesenteric adenopathy including peripancreatic lymph nodes measuring up to 2.5 cm in short axis. Bulky retroperitoneal adenopathy. Diverticulosis without CT evidence of acute diverticulitis. Mild colonic thickening involving the left colon near the splenic flexure. Pericecal inflammatory stranding. Appearance suspected to reflect colitis (i.e. infectious, inflammatory, ischemic). Atherosclerotic calcifications of the aorta. Infrarenal abdominal aortic aneurysm with aorto bi-iliac endo graft. Evaluation is limited by lack of contrast material. Small pelvic free fluid. Chronic appearing fracture deformity of the manubrium. Compression fracture deformities involving T5, T6, L4. Osseous fracture or erosion involving the left transverse process of L4.
--- NOTE | 2016-10-12 13:57 | CON ---
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 He was treated about a year and a half, almost 2 years ago with ROOMS DIRECTOR-16 and carboplatin and did very well with a good partial response. He then received radiation therapy to his lung and mediastinal l ymph nodes. He did well for about 6 months, but then it recurred in his hip and we gave radiation th erapy to the hip iliac region, followed by a gastrointestinal bleed for which he needed to be admitte d for that and several transfusions. Finally we will to see him as an outpatient. We started him on Opdivo immunotherapy and he had his first treatment about 2 weeks ago. This treatment was supposed to be given once every 2 weeks. When I saw him last week in the office, the cancer in his right supr aclavicular region seemed to be somewhat smaller and softer and he did pretty well with it. I spoke to the daughter today. She said that over the weekend he stopped eating and drinking very much and lorene fernando was having back pain, but she did not want to bother anybody and she brought him to the Emergency [facility] this morning, where he was found to have a BUN of 100, a creatinine of about 8. PHYSICAL EXAMINATION: SKIN: No petechiae, no bruises. HEENT: Anicteric. NODES: Shows a right collection of the right supraclavicular lymph nodes about 5 cm. No axillary. HEART: S1, S2. LUNGS: Clear at present, although he is on BiPAP and some vague vertebral tenderness. ABDOMEN: Shows no liver, no spleen, no tenderness. EXTREMITIES: No edema. CENTRAL NERVOUS SYSTEM: No focal finding. The patient knows who I am. He is alert. ASSESSMENT AND PLAN: At this point he is severely dehydrated and will need IV fluids. His hemoglobin will probably start going down as we hydrate him and he will need transfusions to keep his hemoglobin up. He may have bl ed again and this is why his BUN is so high and why he has become more anemic again. The Opdivo does not usually cause severe anemia. In terms of do not resuscitate, the daughter has very severe diffi culty in making that decision. We talked about this several times with each hospitalization and even as an outpatient. She is aware that this is not a curable cancer and that we are attempting to sheri t with a new treatment. It is unclear of whether it is going to work or if it is working, but at thi s point she is not willing to make him a no-code. Tru Maurisio CARTER cc: [id number] TT: 10/12/2016 13:57:19 Confirmation # [id number] Dictation # [id number]
[2016-10-12] MEDS: Ferric Sodium Gluconat Complex 62.5 mg/5 ml Vial IVPB SCH (14:00)
[2016-10-12 14:11] LABS: BASO % 0.3 % (0.0-2.0); HEMATOCRIT 26.7 % (35.0-51.0); LYMPH # 0.2 K/uL (1.0-4.3); LYMPH % 1.1 % (20.0-40.0); MEAN CELL VOLUME 92.6 fL (80.0-94.0); MEAN CORPUSCULAR HEMOGLOBIN 28.5 pg (27.0-31.0); MEAN CORPUSCULAR HGB CONC 30.8 g/dL (33.0-37.0); MEAN PLATELET VOLUME 7.4 fL (7.2-11.7); MONO # 0.5 K/uL (0.0-0.8); MONO % 3.6 % (0.0-10.0); NRBC % 0.2 % (0.0-2.0); PLATELET COUNT 176 K/uL (130-400); RED CELL DISTRIBUTION WIDTH 17.7 % (11.5-14.5); WHITE BLOOD COUNT 15.1 K/uL (4.8-10.8)
[2016-10-12 14:35] LABS: NEUTROPHIL 94 % (50-75); TOTAL CELLS COUNTED 100
--- NOTE | 2016-10-12 14:35 | CP.PCM.PN ---
Subjective - Date & Time of Evaluation Date of Evaluation: 10/12/16 Time of Evaluation: 12:00 - Subjective Subjective: BRIEF NOTE: Patient came earlier today and the H&P is from this morning. I came and saw and spoke with family member at bedside and updated them. History of extensive malignancy noted. He had a CT of the chest abdomen and pelvis showing extensive lymphadenopathy. There is also masses noted in the patient's neck area as well. He was intially metabolic acidotic when he came this morning. Currently on IVF with bicarb. Very concerning is the little to no U/O despite getting IVF and lasix. Family was present and I sat down and discussed with them. I explained the overall situation was very poor. thank you Bryon Bright Objective - Vital Signs/Intake and Output Vital Signs (last 24 hours): Temp Pulse Resp BP Pulse Ox 98 F 111 H 19 122/66 97 10/12/16 12:00 10/12/16 14:21 10/12/16 14:21 10/12/16 13:45 10/12/16 14:21 Intake and Output: 10/12/16 10/12/16 06:59 18:59 Intake Total 830 Output Total 50 Balance 780 - Medications Medications: Current Medications Albuterol/Ipratropium (Duoneb 3 Mg/0.5 Mg (3 Ml) Ud) 3 ml INH RQ6 [facility] Last Admin: 10/12/16 14:07 Dose: 3 ml Docusate Sodium (Colace) 100 mg PO BID [facility] Last Admin: 10/12/16 11:01 Dose: 100 mg Ferric Sodium Gluconate Complex (Ferrlecit) 125 mg IVPB DAILY [facility] Stop: 10/20/16 12:01 Last Admin: 10/12/16 14:00 Dose: 125 mg Ceftriaxone Sodium 1 gm/ (Sodium Chloride) 100 mls @ 100 mls/hr IVPB Q12H [facility] Stop: 10/31/16 16:29 Last Admin: 10/12/16 04:45 Dose: 100 mls/hr Azithromycin 500 mg/ Sodium (Chloride) 250 mls @ 250 mls/hr IVPB DAILY [facility] Last Admin: 10/12/16 11:46 Dose: 250 mls/hr Sodium Bicarbonate 150 meq/ (Dextrose) 1,150 mls @ 40 mls/hr IV .Q24H [facility] Morphine Sulfate (Morphine) 2 mg IVP Q4H PRN PRN Reason: Pain, severe (8-10) Pantoprazole Sodium (Protonix Inj) 40 mg IVP DAILY [facility] Last Admin: 10/12/16 11:01 Dose: 40 mg Rosuvastatin Calcium (Crestor) 2.5 mg PO HS [facility] - Labs Labs: 10/12/16 14:08 10/12/16 04:45
[2016-10-12 14:37] LABS: ALB/GLOB RATIO 0.7 (1.0-2.1); BILIRUBIN,TOTAL 1.1 mg/dL (0.2-1.3); TOTAL PROTEIN 6.7 g/dL (6.3-8.3)
--- NOTE | 2016-10-12 14:37 | CP.PCM.CON ---
History of Present Illness - History of Present Illness History of Present Illness: Palliative consult for goals of care discussion Requested by Doctor Jose E Patient is a 76 yo male known to me from previous admission, admitted with SOB, generalized weakness and refusing food for a few days. CT soft neck tissue done today was significant for large right neck mass pressing on the trachea and multiple other cervical lymph nodes. Patient has known Hx of lung CA and was in remission. Doctor Maurisio is on the case. patient was on chemo therapy in the past. PMH: anemia, COPD, emphysema, fractured ribs, S/P fall at home, lung CA Soc> Hx; single, lives with daughter Jeanna Fam. Hx; Unknown Review of Systems - Review of Systems Systems not reviewed;Unavailable: Other Past Patient History - Infectious Disease Hx of Infectious Diseases: None - Past Medical History & Family History Past Medical History?: Yes - Past Social History Smoking Status: Former Smoker - CARDIAC Hx Cardiac Disorders: No Hx Angina: No Hx Atrial Fibrillation: No Hx Cardia Arrhythmia: No Hx Circulatory Problems: No Hx Congestive Heart Failure: No Hx Heart Attack: No Hx Heart Murmur: No Hx Heart Transplant: No Hx Hypercholesterolemia: Yes Hx Hypertension: Yes (no longer) Hx Hypotension: No Hx Internal Defibrillator: No Hx Mitral Valve Prolapse: No Hx Pacemaker: No Hx Peripheral Edema: No Hx Peripheral Vascular Disease: No - PULMONARY Hx Chronic Obstructive Pulmonary Disease (COPD): Yes Hx Emphysema: Yes Hx Lung Cancer: Yes Hx Pneumonia: Yes Hx Pulmonary Edema: Yes - NEUROLOGICAL Hx Neurological Disorder: No - HEENT Hx HEENT Problems: Yes Hx Cataracts: Yes - RENAL Hx Chronic Kidney Disease: (renal insufficiency) - ENDOCRINE/METABOLIC Hx Endocrine Disorders: Yes Hx Diabetes Mellitus Type 2: Yes - HEMATOLOGICAL/ONCOLOGICAL Hx Anemia: Yes - INTEGUMENTARY Hx Dermatological Problems: Yes (enlarged lymph node left neck) - MUSCULOSKELETAL/RHEUMATOLOGICAL Hx Falls: No - GASTROINTESTINAL Hx Gastrointestinal Disorders: No - GENITOURINARY/GYNECOLOGICAL Hx Genitourinary Disorders: No - PSYCHIATRIC Hx Substance Use: No - SURGICAL HISTORY Hx Surgeries: Yes Hx Abdominal Aortic Aneurysm Repair: Yes Hx Herniorrhaphy: Yes (right ing hernia repair) Hx Vascular Surgery: Yes (aneurysm with stents) - ANESTHESIA Hx Anesthesia: Yes Hx Anesthesia Reactions: No Hx Malignant Hyperthermia: No Meds Allergies/Adverse Reactions: Allergies Allergy/AdvReac Type Severity Reaction Status Date / Time No Known Allergies Allergy Verified 08/21/16 18:25 - Medications Medications: Current Medications Albuterol/Ipratropium (Duoneb 3 Mg/0.5 Mg (3 Ml) Ud) 3 ml INH RQ6 [facility] Last Admin: 10/12/16 14:07 Dose: 3 ml Docusate Sodium (Colace) 100 mg PO BID [facility] Last Admin: 10/12/16 11:01 Dose: 100 mg Ferric Sodium Gluconate Complex (Ferrlecit) 125 mg IVPB DAILY [facility] Stop: 10/20/16 12:01 Last Admin: 10/12/16 14:00 Dose: 125 mg Ceftriaxone Sodium 1 gm/ (Sodium Chloride) 100 mls @ 100 mls/hr IVPB Q12H [facility] Stop: 10/31/16 16:29 Last Admin: 10/12/16 04:45 Dose: 100 mls/hr Azithromycin 500 mg/ Sodium (Chloride) 250 mls @ 250 mls/hr IVPB DAILY [facility] Last Admin: 10/12/16 11:46 Dose: 250 mls/hr Sodium Bicarbonate 150 meq/ (Dextrose) 1,150 mls @ 40 mls/hr IV .Q24H [facility] Morphine Sulfate (Morphine) 2 mg IVP Q4H PRN PRN Reason: Pain, severe (8-10) Pantoprazole Sodium (Protonix Inj) 40 mg IVP DAILY [facility] Last Admin: 10/12/16 11:01 Dose: 40 mg Rosuvastatin Calcium (Crestor) 2.5 mg PO HS [facility] Physical Exam - Constitutional Appears: Chronically Ill - Head Exam Head Exam: ATRAUMATIC - Eye Exam Eye Exam: Normal appearance Pupil Exam: NORMAL ACCOMODATION - ENT Exam Additional comments: C Pap on - Neck Exam Additional comments: right neck hard mass - Respiratory Exam Respiratory Exam: Accessory Muscle Use Additional comments: On C Pap - Cardiovascular Exam Cardiovascular Exam: Tachycardia - GI/Abdominal Exam GI & Abdominal Exam: Normal Bowel Sounds - Rectal Exam Rectal Exam: Deferred - Exam Additional comments: Macdonald cath - Extremities Exam Extremities exam: Positive for: normal inspection - Back Exam Back exam: NORMAL INSPECTION - Neurological Exam Neurological exam: Alert, Altered - Psychiatric Exam Psychiatric exam: Anxious - Skin Skin Exam: Pallor Results - Vital Signs Recent Vital Signs: Last Vital Signs Temp 98 F 10/12/16 12:00 Pulse 111 H 10/12/16 14:21 Resp 19 10/12/16 14:21 BP 122/66 10/12/16 13:45 Pulse Ox 97 10/12/16 14:21 - Labs Result Diagrams: 10/12/16 14:08 10/12/16 14:08 Labs: Laboratory Results - last 24 hr 10/12/16 10/12/16 10/12/16 00:09 04:45 04:50 WBC 16.8 H RBC 3.18 L Hgb 9.2 L Hct 29.8 L MCV 93.8 D MCH 29.0 MCHC 30.9 L RDW 18.1 H Plt Count 189 MPV 7.4 Neut % (Auto) 92.3 H Lymph % (Auto) 2.5 L Shawnee % (Auto) 4.8 Eos % (Auto) 0.0 Baso % (Auto) 0.4 Neut # 15.5 H Lymph # 0.4 L Shawnee # 0.8 Eos # 0.0 Baso # 0.1 Neutrophils % (Manual) 90 H Band Neutrophils % 2 Lymphocytes % (Manual) 4 L Monocytes % (Manual) 4 Platelet Estimate Normal Puncture Site Rrad pCO2 41 pO2 88 HCO3 18.4 L ABG pH 7.26 L ABG Total CO2 19.7 L ABG O2 Saturation 97.6 ABG Base Excess -8.3 L ABG Hemoglobin 15.8 ABG Carboxyhemoglobin 1.7 H POC ABG HHb (Measured) 2.3 ABG Methemoglobin 0.8 Wayne Test Pos VBG pH 7.31 L VBG pCO2 39 L VBG HCO3 19.9 VBG Total CO2 20.8 L VBG O2 Sat (Calc) 96.0 H VBG Base Excess -6.2 L VBG Potassium 6.4 H* Hgb O2 Saturation 95.2 Sodium 138.0 136 Chloride 103.0 103 Glucose 137 H Lactate 2.4 H Liter Flow 8.0 Crit Value Called To Dr del rio Crit Value Called By Bruce prater contact center director Crit Value Read Back N Blood Gas Notified Time 16 Potassium 6.7 H* Carbon Dioxide 15 L Anion Gap 25 H BUN 99 H Creatinine 7.8 H* Est GFR ( Amer) 8 Est GFR (Non-Af Amer) 7 Random Glucose 108 Lactic Acid Calcium 9.1 Phosphorus 6.5 H Magnesium 2.6 H Total Bilirubin 1.1 AST 85 H ALT 38 Alkaline Phosphatase 393 H Total Creatine Kinase 62 CK-MB (Mass) 4.12 H Troponin I, Quant 0.1260 H* Total Protein 7.0 Albumin 2.8 L Globulin 4.2 H Albumin/Globulin Ratio 0.7 L Venous Blood Potassium 6.4 H* Hepatitis A IgM Ab Hep Bs Antigen Hep B Core IgM Ab Hepatitis C Antibody Influenza Typ A,B (EIA) Negative for flu a/b 10/12/16 10/12/16 10/12/16 05:38 06:14 14:08 WBC 15.1 H RBC 2.88 L Hgb 8.2 L Hct 26.7 L MCV 92.6 MCH 28.5 MCHC 30.8 L RDW 17.7 H Plt Count 176 MPV 7.4 Neut % (Auto) 95.0 H Lymph % (Auto) 1.1 L Shawnee % (Auto) 3.6 Eos % (Auto) 0.0 Baso % (Auto) 0.3 Neut # 14.3 H Lymph # 0.2 L Shawnee # 0.5 Eos # 0.0 Baso # 0.0 Neutrophils % (Manual) Band Neutrophils % Lymphocytes % (Manual) Monocytes % (Manual) Platelet Estimate Puncture Site pCO2 pO2 HCO3 ABG pH ABG Total CO2 ABG O2 Saturation ABG Base Excess ABG Hemoglobin ABG Carboxyhemoglobin POC ABG HHb (Measured) ABG Methemoglobin Wayne Test VBG pH VBG pCO2 VBG HCO3 VBG Total CO2 VBG O2 Sat (Calc) VBG Base Excess VBG Potassium Hgb O2 Saturation Sodium Chloride Glucose Lactate Liter Flow Crit Value Called To Crit Value Called By Crit Value Read Back Blood Gas Notified Time Potassium Carbon Dioxide Anion Gap BUN Creatinine Est GFR ( Amer) Est GFR (Non-Af Amer) Random Glucose Lactic Acid 1.7 Calcium Phosphorus Magnesium Total Bilirubin AST ALT Alkaline Phosphatase Total Creatine Kinase CK-MB (Mass) Troponin I, Quant Total Protein Albumin Globulin Albumin/Globulin Ratio Venous Blood Potassium Hepatitis A IgM Ab Negative Hep Bs Antigen Negative Hep B Core IgM Ab Negative Hepatitis C Antibody Negative Influenza Typ A,B (EIA) Assessment & Plan - Assessment and Plan (Free Text) Assessment: Code status Full Code. No advance directive on chart. ROS unobtainable due to acute respiratory distress. I reviewed medical records, all diagnostic studies and examined patient in the bed. Goals of care discussion with daughter Ada at bed side; additional 30 min. Patient is alert, anxious, and on C-Pap. Patient looks ill. Breathing gets more labored with positioning. RR 30, O2sat 100 %. BP 143/71, HR 131. WBC 16.8, Hb 9.2, K 6.7, BUN 99, Colliery Clerk 7.8.Daughter Jeanna was delivered the news about the large neck mass by Doctor Maurisio. I discussed patient's clinical presentation with daughter Jaenna and suggested quality of life concerns. The daughter acted in the same fashion as she did on the last admission; trying to avoid discussion. I was very specific suggesting that the large neck mass pressing on the trach, may close up the airway what will indicate emergency intubation. I tried to elicit her goals of care for her father. Her answer was that she was going to play " by the ear". I suggested that despite all reasonable measures being applied, we may not have enough time to discuss the goals of care if patient Codes. Doctor Dorantes had the same conversation with the daughter as well. Impression * Patient is acutely ill in respiratory distress which will most likely worsen due to large neck mass * Patient's wishes about end of life care are not known * Patient is not able to make those decisions now, due to clinical state * Patient's daughter is unrealistic due to denial and avoids end of life care discussion Suggestion * Would maintain NPO * DNR/DNI would be appropriate * I will meet again with the daughter this afternoon and one more time discuss the code status Thank you for consulting palliative services P.S. At 4 pm, I went back to patient's room and discussed with his daughter Jeanna the most recent right neck mass findings and its possible effect on breathing, requiring the emergency trach creation, as suggested by Doctor Dorantes. The daughter stated understanding and admitted " that it was the best solution for my father." I corrected her knowledge about emergency trach creation and its affect on quality of life. The daughter Jeanna remained with her decision.
[2016-10-12 14:38] LABS: CALCIUM 8.8 mg/dl (8.6-10.4); MAGNESIUM 2.5 mg/dL (1.6-2.3)
[2016-10-12 14:59] LABS: POTASSIUM 6.4 mmol/L (3.6-5.2)
[2016-10-12] MEDS ORDERED: Dextrose 50% SYRINGE Inj (50 ml) IV STA (15:39)
[2016-10-12] MEDS ORDERED: Calcium Gluconate 4.65 mEq/10 ml Inj IVP ONE (15:39)
--- NOTE | 2016-10-12 16:18 | CON ---
DATE: 10/12/2016 REQUESTING PHYSICIAN: Dr. Bright A 76-year-old gentleman with a history of lung cancer with bone mets, diabetic, chronic kidney diseas e, was presented to the ER with not eating, drinking for the last 4-5 days. The patient was admitted in [facility] ([facility] about a month ago with a GI bleed. Has had a light cough for past few days. No chest pains, no fever, no chills. PAST MEDICAL HISTORY: History of diabetes, hypertension, chronic kidney disease, lung cancer with jose alejandro ne mets. Primary doctor is Dr. Eros Ocampo and oncologist is Dr. Forde. Also has a mediastinal mass and a mass in the right side of the neck, COPD, bleed from duodenal ulcer. Also had an endovas cular stent placed for abdominal aortic aneurysm 16 years ago, right incarcerated hernia done by Dr. Knight, history of lung biopsy. PERSONAL HISTORY: Ex-smoker, stopped smoking more than 20 years ago, lives with the family. ALLERGIES: Denied. REVIEW OF SYSTEMS: Generalized weakness is noted. No fever, no chills. Blurred vision, shortness o f breath, cough, but no hemoptysis. Denies any chest pain, shortness of breath, orthopnea. History is as per granddaughter, who was at the bedside. No abdominal pain. No dysuria. Frequency is noted . MUSCULOSKELETAL: Back pains and myalgia. NEUROLOGIC: Generalized weakness. No seizures, no TIAs. PSYCHIATRIC: No evidence of depression. PHYSICAL EXAMINATION: GENERAL: Shows elderly gentleman who is lethargic, on nonrebreathing mask, in no acute distress. He is 5 feet, but appears taller than that, weighs 98 pounds. VITAL SIGNS: His blood pressure is 130/70, heart rate of 112 and regular, respiratory rate of 20. HEAD: Normocephalic. EYES: No pallor, no icterus. NECK: Huge mass is noted in the right supraclavicular area. LUNGS: Have decreased entry at the bases anteriorly. HEART: Sounds are tachycardic. No definite gallops or murmurs are appreciated. ABDOMEN: Soft. EXTREMITIES: No cyanosis, clubbing or edema. Distal pulses are 1+. NEUROLOGICAL: Could not be evaluated. LABORATORY DATA: Had shown hemoglobin of 8.2. His BUN is 107, creatinine is 8.1, potassium is 6.4. His troponins are elevated x 2, 0.126 and 0.121. EKG: Sinus tachycardia, nonspecific ST-T changes. ASSESSMENT: A 76-year-old gentleman with a history of possible non-ST elevation myocardial infarctio n. The patient has multiple medical problems including severe gastrointestinal bleed recently a carlin h ago, diabetes, hypertension and cancer of lung with mets. Not a candidate for thrombolytic or any blood thinners. At this point, would recommend treatment with a beta nina and NAY inhibitors as tolerated. We anais l obtain an echocardiogram with Doppler studies to evaluate the left ventricle size and function. I thank you kindly and we will follow on a p.r.n. basis. jC Mcpherson MD cc: [id number] TT: 10/12/2016 16:17:38 Confirmation # [id number] Dictation # [id number]
[2016-10-12] MEDS: Rosuvastatin Calcium 2.5 mg Tab PO SCH (21:12)
--- NOTE | 2016-10-12 23:08 | CARD ---
APPROVED REPORT EKG Measurement Heart [id number] <Conclusion> Sinus tachycardia Left axis deviation Nonspecific T wave abnormality Abnormal ECG
[2016-10-13] MEDS: Albuterol-Ipratrop 3 mg / 0.5 (3 ml) UD INH SCH ×4 (01:03→19:25)
[2016-10-13] MEDS: HYDROmorphone 0.5 mg/0.5 ml ISec IVP PRN ×3 (02:09→21:14)
[2016-10-13 07:18] LABS: POTASSIUM 5.5 mmol/L (3.6-5.2)
[2016-10-13 07:20] LABS: BILIRUBIN,TOTAL 0.9 mg/dL (0.2-1.3); TOTAL PROTEIN 6.4 g/dL (6.3-8.3)
[2016-10-13 07:21] LABS: CALCIUM 8.7 mg/dl (8.6-10.4); MAGNESIUM 2.6 mg/dL (1.6-2.3); PHOSPHOROUS 6.4 mg/dL (2.5-4.5)
[2016-10-13 07:26] LABS: ALB/GLOB RATIO 0.8 (1.0-2.1)
[2016-10-13 08:17] LABS: LYMPH # 0.3 K/uL (1.0-4.3); MONO # 0.5 K/uL (0.0-0.8)
[2016-10-13 08:23] LABS: BASO % 0.2 % (0.0-2.0); EOS # 0.1 K/uL (0.0-0.7); EOS % 0.8 % (0.0-4.0); LYMPH % 1.8 % (20.0-40.0); MEAN CELL VOLUME 90.9 fL (80.0-94.0); MEAN CORPUSCULAR HEMOGLOBIN 29.1 pg (27.0-31.0); MEAN PLATELET VOLUME 7.7 fL (7.2-11.7); MONO % 3.2 % (0.0-10.0); NRBC % 0.2 % (0.0-2.0); RED CELL DISTRIBUTION WIDTH 17.4 % (11.5-14.5); WHITE BLOOD COUNT 15.5 K/uL (4.8-10.8)
[2016-10-13 08:26] LABS: PLATELET COUNT 127 K/uL (130-400)
--- NOTE | 2016-10-13 08:33 | CP.CCUPN ---
<Nicki Connors - Last Filed: 10/13/16 12:01> CCU Subjective - Physician Review Subjective (Free Text): 10/13/16 12:01 Pt seen and examined in no acute distress. Patient has some exertional dyspnea at times, but currently stable on BiPAP. Patient anuric per nursing. In light of anuria and worsening kidney function, discussion necessary withd aughter regarding dialysis efforts. Patient's daughter signed for DNR/DNI measures overnight after long discussion with network/telecom engineer. Pt admits to some shortness of breath and some constipation. He denies headaches, chest pain, palpitations, subjective fevers or chills, at this time. CCU Objective - Vital Signs / Intake & Output Vital Signs (Last 4 hours): Vital Signs Pulse Resp BP Pulse Ox 10/13/16 07:45 119 H 10/13/16 06:37 116 H 22 139/76 93 L 10/13/16 06:29 117 H 23 94 L 10/13/16 06:00 108 H 17 95 10/13/16 05:37 108 H 19 126/73 93 L 10/13/16 05:11 112 H 10/13/16 05:00 108 H 16 94 L 10/13/16 04:37 105 H 17 120/75 93 L Intake and Output (Last 8hrs): Intake & Output 10/12/16 10/13/16 10/13/16 22:59 06:59 14:59 Intake Total 370 320 40 Output Total 0 0 0 Balance 370 320 40 Weight 100 lb 12.02 oz Intake: Intake, IV Amount 370 320 40 Right Wrist 320 320 40 Left Forearm 50 Oral 0 0 0 Output: Urine 0 0 0 Urethral (Macdonald) 0 0 0 Other: # Bowel Movements 1 - Physical Exam Pupils: Positive for: PERRL Extroacular Muscles: Positive for: EOMI Conjunctiva: Positive for: Normal Mouth: Positive for: Moist Mucous Membranes Pharnyx: Positive for: Strider, Other (mass located right side of neck) Respiratory/Chest: Negative for: Wheezes Cardiovascular: Positive for: Normal S1, S2 Abdomen: Negative for: Tenderness, Distention, Normal Bowel Sounds, Peritoneal Signs Upper Extremity: Positive for: Normal Inspection Lower Extremity: Positive for: Normal Inspection Neurological: Positive for: CN II-XII Intact Skin: Positive for: Warm, Dry Psychiatric: Positive for: Alert - Medications Active Medications: Active Medications Generic Name Dose Route Start Last Admin Trade Name Freq PRN Reason Stop Dose Admin Albuterol/Ipratropium 3 ml 10/12/16 08:00 10/13/16 07:44 Duoneb 3 Mg/0.5 Mg (3 Ml) Ud INH 3 ml RQ6 JACKIE Administration Docusate Sodium 100 mg 10/12/16 10:00 10/12/16 18:26 Colace PO 100 mg BID JACKIE Administration Ferric Sodium Gluconate Complex 125 mg 10/12/16 12:00 10/12/16 14:00 Ferrlecit IVPB 10/20/16 12:01 125 mg DAILY JACKIE Administration Hydromorphone HCl 0.5 mg 10/13/16 01:45 10/13/16 02:09 Dilaudid IVP 0.5 mg Q4H PRN Administration pain Ceftriaxone Sodium 1 gm/ 100 mls @ 100 mls/hr 10/12/16 03:30 10/13/16 04:07 Sodium Chloride IVPB 10/31/16 16:29 100 mls/hr Q12H JACKIE Administration Azithromycin 500 mg/ Sodium 250 mls @ 250 mls/hr 10/12/16 10:00 10/12/16 11:46 Chloride IVPB 250 mls/hr DAILY JACKIE Administration Sodium Bicarbonate 150 meq/ 1,150 mls @ 40 mls/hr 10/12/16 10:48 10/12/16 10:00 Dextrose IV 40 mls/hr .Q24H JACKIE Administration Pantoprazole Sodium 40 mg 10/12/16 10:00 10/12/16 11:01 Protonix Inj IVP 40 mg DAILY JACKIE Administration Rosuvastatin Calcium 2.5 mg 10/12/16 22:00 10/12/16 21:12 Crestor PO Not Given HS JACKIE - Patient Studies Lab Studies: Lab Studies 10/13/16 10/13/16 10/13/16 Range/Units 08:14 08:02 07:05 WBC 15.5 H (4.8-10.8) K/uL RBC 2.86 L (4.40-5.90) Mil/uL Hgb 8.3 L (12.0-18.0) g/dL Hct 26.0 L (35.0-51.0) % MCV 90.9 (80.0-94.0) fL MCH 29.1 (27.0-31.0) pg MCHC 32.0 L (33.0-37.0) g/dL RDW 17.4 H (11.5-14.5) % Plt Count 127 L D (130-400) K/uL MPV 7.7 (7.2-11.7) fL Neut % (Auto) 94.0 H (50.0-75.0) % Lymph % (Auto) 1.8 L (20.0-40.0) % Clay % (Auto) 3.2 (0.0-10.0) % Eos % (Auto) 0.8 (0.0-4.0) % Baso % (Auto) 0.2 (0.0-2.0) % Neut # 14.6 H (1.8-7.0) K/uL Lymph # 0.3 L (1.0-4.3) K/uL Clay # 0.5 (0.0-0.8) K/uL Eos # 0.1 (0.0-0.7) K/uL Baso # 0.0 (0.0-0.2) K/uL Neutrophils % (Manual) (50-75) % Band Neutrophils % (0-2) % Lymphocytes % (Manual) (20-40) % Monocytes % (Manual) (0-10) % Platelet Estimate (NORMAL) Poikilocytosis (manual Anisocytosis (manual) Sodium 141 (132-148) mmol/L Potassium 5.5 H (3.6-5.2) mmol/L Chloride 95 L (98-107) mmol/L Carbon Dioxide 24 (22-30) mmol/L Anion Gap 28 H (10-20) BUN 107 H* (9-20) mg/dL Creatinine 8.7 H* (0.8-1.5) MG/DL Est GFR ( Amer) 7 Est GFR (Non-Af Amer) 6 POC Glucose (mg/dL) 183 H (65-110) mg/dL Random Glucose 172 H (75-110) mg/dL Calcium 8.7 (8.6-10.4) mg/dl Phosphorus 6.4 H (2.5-4.5) mg/dL Magnesium 2.6 H (1.6-2.3) mg/dL Total Bilirubin 0.9 (0.2-1.3) mg/dL AST 103 H (17-59) U/L ALT 23 (21-72) U/L Alkaline Phosphatase 338 H (38-126) U/L Total Creatine Kinase (55-170) U/L CK-MB (Mass) (0.0-3.38) ng/mL Troponin I, Quant (0.00-0.120) ng/mL Total Protein 6.4 (6.3-8.3) g/dL Albumin 2.9 L (3.5-5.0) g/dL Globulin 3.5 (2.2-3.9) gm/dL Albumin/Globulin Ratio 0.8 L (1.0-2.1) 10/12/16 10/12/16 10/12/16 Range/Units 21:59 20:42 19:25 WBC (4.8-10.8) K/uL RBC (4.40-5.90) Mil/uL Hgb (12.0-18.0) g/dL Hct (35.0-51.0) % MCV (80.0-94.0) fL MCH (27.0-31.0) pg MCHC (33.0-37.0) g/dL RDW (11.5-14.5) % Plt Count (130-400) K/uL MPV (7.2-11.7) fL Neut % (Auto) (50.0-75.0) % Lymph % (Auto) (20.0-40.0) % Clay % (Auto) (0.0-10.0) % Eos % (Auto) (0.0-4.0) % Baso % (Auto) (0.0-2.0) % Neut # (1.8-7.0) K/uL Lymph # (1.0-4.3) K/uL Clay # (0.0-0.8) K/uL Eos # (0.0-0.7) K/uL Baso # (0.0-0.2) K/uL Neutrophils % (Manual) (50-75) % Band Neutrophils % (0-2) % Lymphocytes % (Manual) (20-40) % Monocytes % (Manual) (0-10) % Platelet Estimate (NORMAL) Poikilocytosis (manual Anisocytosis (manual) Sodium (132-148) mmol/L Potassium 5.9 H (3.6-5.2) mmol/L Chloride (98-107) mmol/L Carbon Dioxide (22-30) mmol/L Anion Gap (10-20) BUN (9-20) mg/dL Creatinine (0.8-1.5) MG/DL Est GFR ( Amer) Est GFR (Non-Af Amer) POC Glucose (mg/dL) 227 H (65-110) mg/dL Random Glucose (75-110) mg/dL Calcium (8.6-10.4) mg/dl Phosphorus (2.5-4.5) mg/dL Magnesium (1.6-2.3) mg/dL Total Bilirubin (0.2-1.3) mg/dL AST (17-59) U/L ALT (21-72) U/L Alkaline Phosphatase (38-126) U/L Total Creatine Kinase 72 (55-170) U/L CK-MB (Mass) 4.36 H (0.0-3.38) ng/mL Troponin I, Quant 0.1120 (0.00-0.120) ng/mL Total Protein (6.3-8.3) g/dL Albumin (3.5-5.0) g/dL Globulin (2.2-3.9) gm/dL Albumin/Globulin Ratio (1.0-2.1) 10/12/16 Range/Units 14:08 WBC 15.1 H (4.8-10.8) K/uL RBC 2.88 L (4.40-5.90) Mil/uL Hgb 8.2 L (12.0-18.0) g/dL Hct 26.7 L (35.0-51.0) % MCV 92.6 (80.0-94.0) fL MCH 28.5 (27.0-31.0) pg MCHC 30.8 L (33.0-37.0) g/dL RDW 17.7 H (11.5-14.5) % Plt Count 176 (130-400) K/uL MPV 7.4 (7.2-11.7) fL Neut % (Auto) 95.0 H (50.0-75.0) % Lymph % (Auto) 1.1 L (20.0-40.0) % Clay % (Auto) 3.6 (0.0-10.0) % Eos % (Auto) 0.0 (0.0-4.0) % Baso % (Auto) 0.3 (0.0-2.0) % Neut # 14.3 H (1.8-7.0) K/uL Lymph # 0.2 L (1.0-4.3) K/uL Clay # 0.5 (0.0-0.8) K/uL Eos # 0.0 (0.0-0.7) K/uL Baso # 0.0 (0.0-0.2) K/uL Neutrophils % (Manual) 94 H (50-75) % Band Neutrophils % 3 H (0-2) % Lymphocytes % (Manual) 1 L (20-40) % Monocytes % (Manual) 2 (0-10) % Platelet Estimate Normal (NORMAL) Poikilocytosis (manual Slight Anisocytosis (manual) Slight Sodium 141 (132-148) mmol/L Potassium 6.4 H* (3.6-5.2) mmol/L Chloride 101 (98-107) mmol/L Carbon Dioxide 20 L (22-30) mmol/L Anion Gap 26 H (10-20) BUN 107 H* (9-20) mg/dL Creatinine 8.1 H* (0.8-1.5) MG/DL Est GFR ( Amer) 8 Est GFR (Non-Af Amer) 6 POC Glucose (mg/dL) (65-110) mg/dL Random Glucose 143 H (75-110) mg/dL Calcium 8.8 (8.6-10.4) mg/dl Phosphorus (2.5-4.5) mg/dL Magnesium 2.5 H (1.6-2.3) mg/dL Total Bilirubin 1.1 (0.2-1.3) mg/dL AST 94 H (17-59) U/L ALT 34 (21-72) U/L Alkaline Phosphatase 348 H (38-126) U/L Total Creatine Kinase 60 (55-170) U/L CK-MB (Mass) 4.60 H (0.0-3.38) ng/mL Troponin I, Quant 0.1210 H* (0.00-0.120) ng/mL Total Protein 6.7 (6.3-8.3) g/dL Albumin 2.8 L (3.5-5.0) g/dL Globulin 3.9 (2.2-3.9) gm/dL Albumin/Globulin Ratio 0.7 L (1.0-2.1) Laboratory Results - last 24 hr 10/12/16 10/12/16 10/12/16 14:08 19:25 20:42 WBC 15.1 H RBC 2.88 L Hgb 8.2 L Hct 26.7 L MCV 92.6 MCH 28.5 MCHC 30.8 L RDW 17.7 H Plt Count 176 MPV 7.4 Neut % (Auto) 95.0 H Lymph % (Auto) 1.1 L Clay % (Auto) 3.6 Eos % (Auto) 0.0 Baso % (Auto) 0.3 Neut # 14.3 H Lymph # 0.2 L Clay # 0.5 Eos # 0.0 Baso # 0.0 Neutrophils % (Manual) 94 H Band Neutrophils % 3 H Lymphocytes % (Manual) 1 L Monocytes % (Manual) 2 Platelet Estimate Normal Poikilocytosis (manual Slight Anisocytosis (manual) Slight Sodium 141 Potassium 6.4 H* 5.9 H Chloride 101 Carbon Dioxide 20 L Anion Gap 26 H BUN 107 H* Creatinine 8.1 H* Est GFR ( Amer) 8 Est GFR (Non-Af Amer) 6 POC Glucose (mg/dL) Random Glucose 143 H Calcium 8.8 Phosphorus Magnesium 2.5 H Total Bilirubin 1.1 AST 94 H ALT 34 Alkaline Phosphatase 348 H Total Creatine Kinase 60 72 CK-MB (Mass) 4.60 H 4.36 H Troponin I, Quant 0.1210 H* 0.1120 Total Protein 6.7 Albumin 2.8 L Globulin 3.9 Albumin/Globulin Ratio 0.7 L 10/12/16 10/13/16 10/13/16 21:59 07:05 08:02 WBC RBC Hgb Hct MCV MCH MCHC RDW Plt Count MPV Neut % (Auto) Lymph % (Auto) Clay % (Auto) Eos % (Auto) Baso % (Auto) Neut # Lymph # Clay # Eos # Baso # Neutrophils % (Manual) Band Neutrophils % Lymphocytes % (Manual) Monocytes % (Manual) Platelet Estimate Poikilocytosis (manual Anisocytosis (manual) Sodium 141 Potassium 5.5 H Chloride 95 L Carbon Dioxide 24 Anion Gap 28 H BUN 107 H* Creatinine 8.7 H* Est GFR ( Amer) 7 Est GFR (Non-Af Amer) 6 POC Glucose (mg/dL) 227 H 183 H Random Glucose 172 H Calcium 8.7 Phosphorus 6.4 H Magnesium 2.6 H Total Bilirubin 0.9 AST 103 H ALT 23 Alkaline Phosphatase 338 H Total Creatine Kinase CK-MB (Mass) Troponin I, Quant Total Protein 6.4 Albumin 2.9 L Globulin 3.5 Albumin/Globulin Ratio 0.8 L 10/13/16 08:14 WBC 15.5 H RBC 2.86 L Hgb 8.3 L Hct 26.0 L MCV 90.9 MCH 29.1 MCHC 32.0 L RDW 17.4 H Plt Count 127 L D MPV 7.7 Neut % (Auto) 94.0 H Lymph % (Auto) 1.8 L Clay % (Auto) 3.2 Eos % (Auto) 0.8 Baso % (Auto) 0.2 Neut # 14.6 H Lymph # 0.3 L Clay # 0.5 Eos # 0.1 Baso # 0.0 Neutrophils % (Manual) Band Neutrophils % Lymphocytes % (Manual) Monocytes % (Manual) Platelet Estimate Poikilocytosis (manual Anisocytosis (manual) Sodium Potassium Chloride Carbon Dioxide Anion Gap BUN Creatinine Est GFR ( Amer) Est GFR (Non-Af Amer) POC Glucose (mg/dL) Random Glucose Calcium Phosphorus Magnesium Total Bilirubin AST ALT Alkaline Phosphatase Total Creatine Kinase CK-MB (Mass) Troponin I, Quant Total Protein Albumin Globulin Albumin/Globulin Ratio EKG/Cardiology Studies: Cardiology / EKG Studies 10/12/16 11:00 EKG [ELECTROCARDIOGRAM] Q6H Comment: Mode Of Transportation: Reason For Exam: elevated andrey 10/12/16 17:00 EKG [ELECTROCARDIOGRAM] Q6H Comment: Mode Of Transportation: Reason For Exam: elevated andrey 10/12/16 23:00 EKG [ELECTROCARDIOGRAM] Q6H Comment: Mode Of Transportation: Reason For Exam: elevated andrey Fingerstick Blood Sugar Results: 227 Review of Systems - Review of Systems Review of Systems: see subjective Critical Care Progress Note - Nutrition Nutrition: Nutrition Category Date Time Status NPO Diet [DIET] Diets 10/12/16 Breakfast Active Assessment/Plan - Assessment and Plan (Free Text) Assessment: 76 year old male with PMHx significant for Lung Ca with bone metastasis and mediastinal mass in lower right neck, HTN, DM II,HLD, CKD, presents with increased work of breathing secondary to cancer pushing against trachea narrowing the airway. Patient had an episode of respiratory distress earlier requiring BiPAP. Patient now DNR/DNI per family's wishes. Plan: Neuro: aaox3 Cardio: Elevated troponin likely due EKG on admission: sinus Tach with nonspecific T wave changes ANDREY # 1 and 2 mildly [address] ANDREY [address] Cj Mcpherson consulted Anticoagulation held for recent GI bleed Pulm: Hx of SOB Pt in mild distress earlier while on NRB. Patient on BIPAP Pt monitored closely in the case that intubation is required CT chest done- confirming cancer findings CXR shows increased density on left side of the lung in comparison to Chest X- Ray done on 09/07/16. F/U VQ scan Pneumonia with Lung cancer findings WBC 15.5 . Afebrile. Lactic Acid: 2.4 on admission. F/U Repeat Lactid Acid. Rocephin IVPB- Started 4/3 Azithromycin IVPB- Started 4/3 f/u sputum Cx Duonebs Q6H PRN DNI GI: NPO at this time Pt has difficulty swallowing at this time. May require swallow eval Elevated LFTs- Hep panel- negative Endo: ISS Accuchecks Heme: Lung Ca, Neck mass- suspected mets. F/U imaging to determine locations Dr. Forde ( [facility]) consulted Nephro: Poor Kidney function Nephro consult - Need to assess family's wishes regarding dialysis measures No Urine output Bladder scan- Not retaining Hyperkalemia- Calcium gluconate, Kayexelate, Bicarb drip at 40cc Potassium 5.5 this AM. Last night repeat 5.9 Metabolic acidosis on admission MSK: Venous dopplers negative Palliative: DNR/DNI Need to assess risks vs benefits of dialysis Prophylaxis: SCDs Chemical anticoagulation contraindicated due to hx of recent GI bleed on Aug 2016 admission Swallow eval will be needed <Vega,Yogesh S - Last Filed: 10/13/16 16:43> CCU Objective - Vital Signs / Intake & Output Vital Signs (Last 4 hours): Vital Signs Temp Pulse Resp BP Pulse Ox 10/13/16 16:30 108 H 10/13/16 16:14 118 H 14 132/80 98 10/13/16 16:00 98 F 10/13/16 15:37 113 H 16 128/80 94 L 10/13/16 14:37 113 H 16 119/63 93 L 10/13/16 13:37 112 H 18 114/69 98 10/13/16 13:15 110 H Intake and Output (Last 8hrs): Intake & Output 10/13/16 10/13/16 10/13/16 06:59 14:59 22:59 Intake Total 320 810 160 Output Total 0 0 Balance 320 810 160 Weight 100 lb 12.02 oz Intake: Intake, IV Amount 320 810 160 Right Wrist 320 570 160 Left Forearm 200 Right Hand 40 Oral 0 0 Output: Urine 0 0 Urethral (Macdonald) 0 0 Other: # Bowel Movements 1 - Medications Active Medications: Active Medications Generic Name Dose Route Start Last Admin Trade Name Freq PRN Reason Stop Dose Admin Albuterol/Ipratropium 3 ml 10/12/16 08:00 10/13/16 13:15 Duoneb 3 Mg/0.5 Mg (3 Ml) Ud INH 3 ml RQ6 JACKIE Administration Docusate Sodium 100 mg 10/12/16 10:00 10/13/16 10:06 Colace PO Not Given BID JACKIE Ferric Sodium Gluconate Complex 125 mg 10/12/16 12:00 10/13/16 10:06 Ferrlecit IVPB 10/20/16 12:01 125 mg DAILY JACKIE Administration Hydromorphone HCl 0.5 mg 10/13/16 01:45 10/13/16 13:01 Dilaudid IVP 0.5 mg Q4H PRN Administration pain Ceftriaxone Sodium 1 gm/ 100 mls @ 100 mls/hr 10/12/16 03:30 10/13/16 14:36 Sodium Chloride IVPB 10/31/16 16:29 100 mls/hr Q12H JACKIE Administration Azithromycin 500 mg/ Sodium 250 mls @ 250 mls/hr 10/12/16 10:00 10/13/16 12:13 Chloride IVPB 250 mls/hr DAILY JACKIE Administration Sodium Chloride 1,000 mls @ 60 mls/hr 10/13/16 11:30 10/13/16 12:14 Sodium Chloride 0.45% IV 60 mls/hr .[id number] JACKIE Administration Pantoprazole Sodium 40 mg 10/12/16 10:00 10/13/16 10:06 Protonix Inj IVP 40 mg DAILY JACKIE Administration Rosuvastatin Calcium 2.5 mg 10/12/16 22:00 10/12/16 21:12 Crestor PO Not Given HS JACKIE - Patient Studies Lab Studies: Microbiology Studies 10/12/16 11:40 MRSA Culture (Admit) - Final Naris MRSA NOT DETECTED Lab Studies 10/13/16 10/13/16 10/13/16 Range/Units 16:23 11:36 08:14 WBC 15.5 H (4.8-10.8) K/uL RBC 2.86 L (4.40-5.90) Mil/uL Hgb 8.3 L (12.0-18.0) g/dL Hct 26.0 L (35.0-51.0) % MCV 90.9 (80.0-94.0) fL MCH 29.1 (27.0-31.0) pg MCHC 32.0 L (33.0-37.0) g/dL RDW 17.4 H (11.5-14.5) % Plt Count 127 L D (130-400) K/uL MPV 7.7 (7.2-11.7) fL Neut % (Auto) 94.0 H (50.0-75.0) % Lymph % (Auto) 1.8 L (20.0-40.0) % Clay % (Auto) 3.2 (0.0-10.0) % Eos % (Auto) 0.8 (0.0-4.0) % Baso % (Auto) 0.2 (0.0-2.0) % Neut # 14.6 H (1.8-7.0) K/uL Lymph # 0.3 L (1.0-4.3) K/uL Clay # 0.5 (0.0-0.8) K/uL Eos # 0.1 (0.0-0.7) K/uL Baso # 0.0 (0.0-0.2) K/uL Neutrophils % (Manual) 94 H (50-75) % Band Neutrophils % 3 H (0-2) % Lymphocytes % (Manual) 1 L (20-40) % Monocytes % (Manual) 2 (0-10) % Nucleated RBC % 2 H (0-0) % Toxic Granulation Present Platelet Estimate Slightly decreased L (NORMAL) Polychromasia Slight Hypochromasia (manual) Slight Poikilocytosis (manual Slight Basophilic Stippling Slight Anisocytosis (manual) Slight Sodium (132-148) mmol/L Potassium (3.6-5.2) mmol/L Chloride (98-107) mmol/L Carbon Dioxide (22-30) mmol/L Anion Gap (10-20) BUN (9-20) mg/dL Creatinine (0.8-1.5) MG/DL Est GFR ( Amer) Est GFR (Non-Af Amer) POC Glucose (mg/dL) 170 H 208 H (65-110) mg/dL Random Glucose (75-110) mg/dL Calcium (8.6-10.4) mg/dl Phosphorus (2.5-4.5) mg/dL Magnesium (1.6-2.3) mg/dL Total Bilirubin (0.2-1.3) mg/dL AST (17-59) U/L ALT (21-72) U/L Alkaline Phosphatase (38-126) U/L Total Creatine Kinase (55-170) U/L CK-MB (Mass) (0.0-3.38) ng/mL Troponin I, Quant (0.00-0.120) ng/mL Total Protein (6.3-8.3) g/dL Albumin (3.5-5.0) g/dL Globulin (2.2-3.9) gm/dL Albumin/Globulin Ratio (1.0-2.1) 10/13/16 10/13/16 10/12/16 Range/Units 08:02 07:05 21:59 WBC (4.8-10.8) K/uL RBC (4.40-5.90) Mil/uL Hgb (12.0-18.0) g/dL Hct (35.0-51.0) % MCV (80.0-94.0) fL MCH (27.0-31.0) pg MCHC (33.0-37.0) g/dL RDW (11.5-14.5) % Plt Count (130-400) K/uL MPV (7.2-11.7) fL Neut % (Auto) (50.0-75.0) % Lymph % (Auto) (20.0-40.0) % Clay % (Auto) (0.0-10.0) % Eos % (Auto) (0.0-4.0) % Baso % (Auto) (0.0-2.0) % Neut # (1.8-7.0) K/uL Lymph # (1.0-4.3) K/uL Clay # (0.0-0.8) K/uL Eos # (0.0-0.7) K/uL Baso # (0.0-0.2) K/uL Neutrophils % (Manual) (50-75) % Band Neutrophils % (0-2) % Lymphocytes % (Manual) (20-40) % Monocytes % (Manual) (0-10) % Nucleated RBC % (0-0) % Toxic Granulation Platelet Estimate (NORMAL) Polychromasia Hypochromasia (manual) Poikilocytosis (manual Basophilic Stippling Anisocytosis (manual) Sodium 141 (132-148) mmol/L Potassium 5.5 H (3.6-5.2) mmol/L Chloride 95 L (98-107) mmol/L Carbon Dioxide 24 (22-30) mmol/L Anion Gap 28 H (10-20) BUN 107 H* (9-20) mg/dL Creatinine 8.7 H* (0.8-1.5) MG/DL Est GFR ( Amer) 7 Est GFR (Non-Af Amer) 6 POC Glucose (mg/dL) 183 H 227 H (65-110) mg/dL Random Glucose 172 H (75-110) mg/dL Calcium 8.7 (8.6-10.4) mg/dl Phosphorus 6.4 H (2.5-4.5) mg/dL Magnesium 2.6 H (1.6-2.3) mg/dL Total Bilirubin 0.9 (0.2-1.3) mg/dL AST 103 H (17-59) U/L ALT 23 (21-72) U/L Alkaline Phosphatase 338 H (38-126) U/L Total Creatine Kinase (55-170) U/L CK-MB (Mass) (0.0-3.38) ng/mL Troponin I, Quant (0.00-0.120) ng/mL Total Protein 6.4 (6.3-8.3) g/dL Albumin 2.9 L (3.5-5.0) g/dL Globulin 3.5 (2.2-3.9) gm/dL Albumin/Globulin Ratio 0.8 L (1.0-2.1) 10/12/16 10/12/16 Range/Units 20:42 19:25 WBC (4.8-10.8) K/uL RBC (4.40-5.90) Mil/uL Hgb (12.0-18.0) g/dL Hct (35.0-51.0) % MCV (80.0-94.0) fL MCH (27.0-31.0) pg MCHC (33.0-37.0) g/dL RDW (11.5-14.5) % Plt Count (130-400) K/uL MPV (7.2-11.7) fL Neut % (Auto) (50.0-75.0) % Lymph % (Auto) (20.0-40.0) % Clay % (Auto) (0.0-10.0) % Eos % (Auto) (0.0-4.0) % Baso % (Auto) (0.0-2.0) % Neut # (1.8-7.0) K/uL Lymph # (1.0-4.3) K/uL Clay # (0.0-0.8) K/uL Eos # (0.0-0.7) K/uL Baso # (0.0-0.2) K/uL Neutrophils % (Manual) (50-75) % Band Neutrophils % (0-2) % Lymphocytes % (Manual) (20-40) % Monocytes % (Manual) (0-10) % Nucleated RBC % (0-0) % Toxic Granulation Platelet Estimate (NORMAL) Polychromasia Hypochromasia (manual) Poikilocytosis (manual Basophilic Stippling Anisocytosis (manual) Sodium (132-148) mmol/L Potassium 5.9 H (3.6-5.2) mmol/L Chloride (98-107) mmol/L Carbon Dioxide (22-30) mmol/L Anion Gap (10-20) BUN (9-20) mg/dL Creatinine (0.8-1.5) MG/DL Est GFR ( Amer) Est GFR (Non-Af Amer) POC Glucose (mg/dL) (65-110) mg/dL Random Glucose (75-110) mg/dL Calcium (8.6-10.4) mg/dl Phosphorus (2.5-4.5) mg/dL Magnesium (1.6-2.3) mg/dL Total Bilirubin (0.2-1.3) mg/dL AST (17-59) U/L ALT (21-72) U/L Alkaline Phosphatase (38-126) U/L Total Creatine Kinase 72 (55-170) U/L CK-MB (Mass) 4.36 H (0.0-3.38) ng/mL Troponin I, Quant 0.1120 (0.00-0.120) ng/mL Total Protein (6.3-8.3) g/dL Albumin (3.5-5.0) g/dL Globulin (2.2-3.9) gm/dL Albumin/Globulin Ratio (1.0-2.1) Laboratory Results - last 24 hr 10/12/16 10/12/16 10/12/16 19:25 20:42 21:59 WBC RBC Hgb Hct MCV MCH MCHC RDW Plt Count MPV Neut % (Auto) Lymph % (Auto) Clay % (Auto) Eos % (Auto) Baso % (Auto) Neut # Lymph # Clay # Eos # Baso # Neutrophils % (Manual) Band Neutrophils % Lymphocytes % (Manual) Monocytes % (Manual) Nucleated RBC % Toxic Granulation Platelet Estimate Polychromasia Hypochromasia (manual) Poikilocytosis (manual Basophilic Stippling Anisocytosis (manual) Sodium Potassium 5.9 H Chloride Carbon Dioxide Anion Gap BUN Creatinine Est GFR ( Amer) Est GFR (Non-Af Amer) POC Glucose (mg/dL) 227 H Random Glucose Calcium Phosphorus Magnesium Total Bilirubin AST ALT Alkaline Phosphatase Total Creatine Kinase 72 CK-MB (Mass) 4.36 H Troponin I, Quant 0.1120 Total Protein Albumin Globulin Albumin/Globulin Ratio 10/13/16 10/13/16 10/13/16 07:05 08:02 08:14 WBC 15.5 H RBC 2.86 L Hgb 8.3 L Hct 26.0 L MCV 90.9 MCH 29.1 MCHC 32.0 L RDW 17.4 H Plt Count 127 L D MPV 7.7 Neut % (Auto) 94.0 H Lymph % (Auto) 1.8 L Clay % (Auto) 3.2 Eos % (Auto) 0.8 Baso % (Auto) 0.2 Neut # 14.6 H Lymph # 0.3 L Clay # 0.5 Eos # 0.1 Baso # 0.0 Neutrophils % (Manual) 94 H Band Neutrophils % 3 H Lymphocytes % (Manual) 1 L Monocytes % (Manual) 2 Nucleated RBC % 2 H Toxic Granulation Present Platelet Estimate Slightly decreased L Polychromasia Slight Hypochromasia (manual) Slight Poikilocytosis (manual Slight Basophilic Stippling Slight Anisocytosis (manual) Slight Sodium 141 Potassium 5.5 H Chloride 95 L Carbon Dioxide 24 Anion Gap 28 H BUN 107 H* Creatinine 8.7 H* Est GFR ( Amer) 7 Est GFR (Non-Af Amer) 6 POC Glucose (mg/dL) 183 H Random Glucose 172 H Calcium 8.7 Phosphorus 6.4 H Magnesium 2.6 H Total Bilirubin 0.9 AST 103 H ALT 23 Alkaline Phosphatase 338 H Total Creatine Kinase CK-MB (Mass) Troponin I, Quant Total Protein 6.4 Albumin 2.9 L Globulin 3.5 Albumin/Globulin Ratio 0.8 L 10/13/16 10/13/16 11:36 16:23 WBC RBC Hgb Hct MCV MCH MCHC RDW Plt Count MPV Neut % (Auto) Lymph % (Auto) Clay % (Auto) Eos % (Auto) Baso % (Auto) Neut # Lymph # Clay # Eos # Baso # Neutrophils % (Manual) Band Neutrophils % Lymphocytes % (Manual) Monocytes % (Manual) Nucleated RBC % Toxic Granulation Platelet Estimate Polychromasia Hypochromasia (manual) Poikilocytosis (manual Basophilic Stippling Anisocytosis (manual) Sodium Potassium Chloride Carbon Dioxide Anion Gap BUN Creatinine Est GFR ( Amer) Est GFR (Non-Af Amer) POC Glucose (mg/dL) 208 H 170 H Random Glucose Calcium Phosphorus Magnesium Total Bilirubin AST ALT Alkaline Phosphatase Total Creatine Kinase CK-MB (Mass) Troponin I, Quant Total Protein Albumin Globulin Albumin/Globulin Ratio EKG/Cardiology Studies: Cardiology / EKG Studies 10/12/16 17:00 EKG [ELECTROCARDIOGRAM] Q6H Comment: Mode Of Transportation: Reason For Exam: elevated andrey 10/12/16 23:00 EKG [ELECTROCARDIOGRAM] Q6H Comment: Mode Of Transportation: Reason For Exam: elevated andrey Critical Care Progress Note - Nutrition Nutrition: Nutrition Category Date Time Status NPO Diet [DIET] Diets 10/12/16 Breakfast Active Attending/Attestation - Attestation I have personally seen and examined this patient.: Yes I have fully participated in the care of the patient.: Yes I have reviewed all pertinent clinical information: Yes Notes (Text): 10/13/16 16:41 patient seen and examined in the intensive care unit. Case discussed with house staff in the morning rounds. spoke With family At length. Daughter requested DNR/DNI and does not want any aggressive intervention including dialysis. Comfort measures Prognosis poor
[2016-10-13] MEDS ORDERED: Sodium Polystyrene Sulfonate Enema 30 gm/120 ml PR ONE (09:00)
[2016-10-13] MEDS ORDERED: Calcium Gluconate 4.65 MEQ in Dextrose 5% In Water 100 ML IV ONE (09:30)
[2016-10-13 09:39] LABS: NEUTROPHIL 94 % (50-75); NUCLEATED RED BLOOD CELL 2 % (0-0); TOTAL CELLS COUNTED 100
[2016-10-13] MEDS: Ferric Sodium Gluconat Complex 62.5 mg/5 ml Vial IVPB SCH (10:06)
[2016-10-13] MEDS: Sodium Bicarbonate 8.4% 150 MEQ in Dextrose 5% In Water 1,000 ML IV SCH (10:07)
--- NOTE | 2016-10-13 11:24 | CP.PCM.CON ---
History of Present Illness - History of Present Illness History of Present Illness: 76 year old male with PMHx of lung cancer with bone mets, DM, CKD presents to the ED with daughter for shortness of breath, malaise and decreased PO intake for 4 days. Patient is on bip, history from t and icutem. Daughter has noticed patient has been intermittently SOB for the past 4 days. He has been eating very little and she has been feeding him Ensure supplement intermittently. No fevers or chills reported but admits to light dry cough. Patient's cough was reportedly worse 2 weeks ago and was given unknown "medicine " by Dr. Forde, which made it better. Daughter also reports patient has been having some episodes of confusion for the past 4 days and has been calling his parents who are long ago . His last chemotherapy was 2 weeks ago. Creatinine noted, hyperkalemia. Pt remains anuric. Patient was recently admitted in August of 2016 for GI bleed. Duodenal ulcers treated during EGD on 09/02 with bipolar cautery and epinephrine. Patient was also intubated during same admission. PMHx: DMII, HTN, HLD, CKD, Lung CA with bone mets, mediastinal mass in lower right neck, COPD, GI bleed from duodenal ulcers (08/2016). Surg Hx: endovascular stent abdominal aneurysm repair (16 years ago), right incarcerated hernia, lung biopsy. Fam Hx: denies Social Hx: lives alone in apartment with daughters in same building, not- , former smoker, quit 16 years ago, denies drugs, denies alcohol. Ambulates. Review of Systems - Review of Systems Systems not reviewed;Unavailable: Altered Mental Status Past Patient History - Infectious Disease Hx of Infectious Diseases: None - Past Medical History & Family History Past Medical History?: Yes - Past Social History Smoking Status: Former Smoker - CARDIAC Hx Hypercholesterolemia: Yes Hx Hypertension: Yes (no longer) - PULMONARY Hx Chronic Obstructive Pulmonary Disease (COPD): Yes Hx Emphysema: Yes - NEUROLOGICAL Hx Neurological Disorder: No - HEENT Hx HEENT Problems: Yes Hx Cataracts: Yes - RENAL Hx Chronic Kidney Disease: (renal insufficiency) - ENDOCRINE/METABOLIC Hx Endocrine Disorders: Yes Hx Diabetes Mellitus Type 2: Yes - HEMATOLOGICAL/ONCOLOGICAL Hx Anemia: Yes - INTEGUMENTARY Hx Dermatological Problems: Yes (enlarged lymph node left neck) - MUSCULOSKELETAL/RHEUMATOLOGICAL Hx Arthritis: Yes Hx Fractures: Yes (ribs) - GASTROINTESTINAL Hx Gastrointestinal Disorders: No - GENITOURINARY/GYNECOLOGICAL Hx Genitourinary Disorders: No - PSYCHIATRIC Hx Substance Use: No - SURGICAL HISTORY Hx Surgeries: Yes Hx Abdominal Aortic Aneurysm Repair: Yes Hx Herniorrhaphy: Yes (right ing hernia repair) Hx Vascular Surgery: Yes (aneurysm with stents) - ANESTHESIA Hx Anesthesia: Yes Hx Anesthesia Reactions: No Hx Malignant Hyperthermia: No Meds Allergies/Adverse Reactions: Allergies Allergy/AdvReac Type Severity Reaction Status Date / Time No Known Allergies Allergy Verified 08/21/16 18:25 - Medications Medications: Current Medications Albuterol/Ipratropium (Duoneb 3 Mg/0.5 Mg (3 Ml) Ud) 3 ml INH RQ6 [facility] Last Admin: 10/13/16 07:44 Dose: 3 ml Docusate Sodium (Colace) 100 mg PO BID [facility] Last Admin: 10/13/16 10:06 Dose: Not Given Ferric Sodium Gluconate Complex (Ferrlecit) 125 mg IVPB DAILY [facility] Stop: 10/20/16 12:01 Last Admin: 10/13/16 10:06 Dose: 125 mg Hydromorphone HCl (Dilaudid) 0.5 mg IVP Q4H PRN PRN Reason: pain Last Admin: 10/13/16 02:09 Dose: 0.5 mg Ceftriaxone Sodium 1 gm/ (Sodium Chloride) 100 mls @ 100 mls/hr IVPB Q12H [facility] Stop: 10/31/16 16:29 Last Admin: 10/13/16 04:07 Dose: 100 mls/hr Azithromycin 500 mg/ Sodium (Chloride) 250 mls @ 250 mls/hr IVPB DAILY [facility] Last Admin: 10/12/16 11:46 Dose: 250 mls/hr Sodium Bicarbonate 150 meq/ (Dextrose) 1,150 mls @ 40 mls/hr IV .Q24H [facility] Last Admin: 10/13/16 10:07 Dose: 40 mls/hr Pantoprazole Sodium (Protonix Inj) 40 mg IVP DAILY [facility] Last Admin: 10/13/16 10:06 Dose: 40 mg Rosuvastatin Calcium (Crestor) 2.5 mg PO HS [facility] Last Admin: 10/12/16 21:12 Dose: Not Given Physical Exam - Constitutional Appears: Non-toxic, In Acute Distress, Cachectic, Chronically Ill - Head Exam Head Exam: NORMAL INSPECTION Additional comments: bipap - Eye Exam Eye Exam: Normal appearance - Neck Exam Neck exam: Positive for: Normal Inspection - Respiratory Exam Respiratory Exam: Decreased Breath Sounds, NORMAL BREATHING PATTERN - Cardiovascular Exam Cardiovascular Exam: Tachycardia, REGULAR RHYTHM - GI/Abdominal Exam GI & Abdominal Exam: Distended, Hypoactive Bowel Sounds, Soft - Extremities Exam Extremities exam: Positive for: normal inspection Results - Vital Signs Recent Vital Signs: Last Vital Signs Temp 97.6 F 10/13/16 08:00 Pulse 116 H 10/13/16 11:11 Resp 18 10/13/16 08:37 BP 137/65 10/13/16 08:37 Pulse Ox 100 10/13/16 08:37 - Labs Result Diagrams: 10/13/16 08:14 10/13/16 07:05 Labs: Laboratory Results - last 24 hr 10/12/16 10/12/16 10/12/16 14:08 19:25 20:42 WBC 15.1 H RBC 2.88 L Hgb 8.2 L Hct 26.7 L MCV 92.6 MCH 28.5 MCHC 30.8 L RDW 17.7 H Plt Count 176 MPV 7.4 Neut % (Auto) 95.0 H Lymph % (Auto) 1.1 L Cecil % (Auto) 3.6 Eos % (Auto) 0.0 Baso % (Auto) 0.3 Neut # 14.3 H Lymph # 0.2 L Cecil # 0.5 Eos # 0.0 Baso # 0.0 Neutrophils % (Manual) 94 H Band Neutrophils % 3 H Lymphocytes % (Manual) 1 L Monocytes % (Manual) 2 Nucleated RBC % Toxic Granulation Platelet Estimate Normal Polychromasia Hypochromasia (manual) Poikilocytosis (manual Slight Basophilic Stippling Anisocytosis (manual) Slight Sodium 141 Potassium 6.4 H* 5.9 H Chloride 101 Carbon Dioxide 20 L Anion Gap 26 H BUN 107 H* Creatinine 8.1 H* Est GFR ( Amer) 8 Est GFR (Non-Af Amer) 6 POC Glucose (mg/dL) Random Glucose 143 H Calcium 8.8 Phosphorus Magnesium 2.5 H Total Bilirubin 1.1 AST 94 H ALT 34 Alkaline Phosphatase 348 H Total Creatine Kinase 60 72 CK-MB (Mass) 4.60 H 4.36 H Troponin I, Quant 0.1210 H* 0.1120 Total Protein 6.7 Albumin 2.8 L Globulin 3.9 Albumin/Globulin Ratio 0.7 L 10/12/16 10/13/16 10/13/16 21:59 07:05 08:02 WBC RBC Hgb Hct MCV MCH MCHC RDW Plt Count MPV Neut % (Auto) Lymph % (Auto) Cecil % (Auto) Eos % (Auto) Baso % (Auto) Neut # Lymph # Cecil # Eos # Baso # Neutrophils % (Manual) Band Neutrophils % Lymphocytes % (Manual) Monocytes % (Manual) Nucleated RBC % Toxic Granulation Platelet Estimate Polychromasia Hypochromasia (manual) Poikilocytosis (manual Basophilic Stippling Anisocytosis (manual) Sodium 141 Potassium 5.5 H Chloride 95 L Carbon Dioxide 24 Anion Gap 28 H BUN 107 H* Creatinine 8.7 H* Est GFR ( Amer) 7 Est GFR (Non-Af Amer) 6 POC Glucose (mg/dL) 227 H 183 H Random Glucose 172 H Calcium 8.7 Phosphorus 6.4 H Magnesium 2.6 H Total Bilirubin 0.9 AST 103 H ALT 23 Alkaline Phosphatase 338 H Total Creatine Kinase CK-MB (Mass) Troponin I, Quant Total Protein 6.4 Albumin 2.9 L Globulin 3.5 Albumin/Globulin Ratio 0.8 L 10/13/16 08:14 WBC 15.5 H RBC 2.86 L Hgb 8.3 L Hct 26.0 L MCV 90.9 MCH 29.1 MCHC 32.0 L RDW 17.4 H Plt Count 127 L D MPV 7.7 Neut % (Auto) 94.0 H Lymph % (Auto) 1.8 L Cecil % (Auto) 3.2 Eos % (Auto) 0.8 Baso % (Auto) 0.2 Neut # 14.6 H Lymph # 0.3 L Cecil # 0.5 Eos # 0.1 Baso # 0.0 Neutrophils % (Manual) 94 H Band Neutrophils % 3 H Lymphocytes % (Manual) 1 L Monocytes % (Manual) 2 Nucleated RBC % 2 H Toxic Granulation Present Platelet Estimate Slightly decreased L Polychromasia Slight Hypochromasia (manual) Slight Poikilocytosis (manual Slight Basophilic Stippling Slight Anisocytosis (manual) Slight Sodium Potassium Chloride Carbon Dioxide Anion Gap BUN Creatinine Est GFR ( Amer) Est GFR (Non-Af Amer) POC Glucose (mg/dL) Random Glucose Calcium Phosphorus Magnesium Total Bilirubin AST ALT Alkaline Phosphatase Total Creatine Kinase CK-MB (Mass) Troponin I, Quant Total Protein Albumin Globulin Albumin/Globulin Ratio Assessment & Plan (1) Carcinoma, lung Status: Acute (2) Elevated LFTs Status: Acute (3) Hyperkalemia Status: Acute (4) Metabolic acidosis Status: Acute (5) Renal failure (ARF), acute on chronic Status: Acute - Assessment and Plan (Free Text) Assessment: # anuric marilynn # hyperkalemia # metastatic lung ca # ckd # ascites / liver met Plan: Very poor prognosis. Pt is not a candidate for hd discussed with icu team, family meeting / discuss goals of care iv 1/2ns maintenance fluids
[2016-10-13] MEDS: Azithromycin 500 MG in Sodium Chloride 0.9% 250 ML IVPB SCH (12:13)
[2016-10-13] MEDS: Sodium Chloride 0.45% 1,000 ML IV SCH (12:14)
--- NOTE | 2016-10-13 12:19 | CP.PCM.PN ---
Subjective - Date & Time of Evaluation Date of Evaluation: 10/13/16 Time of Evaluation: 12:17 - Subjective Subjective: awake but sob. Objective - Vital Signs/Intake and Output Vital Signs (last 24 hours): Temp Pulse Resp BP Pulse Ox 97.6 F 115 H 18 123/71 99 10/13/16 08:00 10/13/16 11:37 10/13/16 11:37 10/13/16 11:37 10/13/16 11:37 Intake and Output: 10/13/16 10/13/16 06:59 18:59 Intake Total 480 440 Output Total 0 0 Balance 480 440 - Medications Medications: Current Medications Albuterol/Ipratropium (Duoneb 3 Mg/0.5 Mg (3 Ml) Ud) 3 ml INH RQ6 [facility] Last Admin: 10/13/16 07:44 Dose: 3 ml Docusate Sodium (Colace) 100 mg PO BID [facility] Last Admin: 10/13/16 10:06 Dose: Not Given Ferric Sodium Gluconate Complex (Ferrlecit) 125 mg IVPB DAILY [facility] Stop: 10/20/16 12:01 Last Admin: 10/13/16 10:06 Dose: 125 mg Hydromorphone HCl (Dilaudid) 0.5 mg IVP Q4H PRN PRN Reason: pain Last Admin: 10/13/16 02:09 Dose: 0.5 mg Ceftriaxone Sodium 1 gm/ (Sodium Chloride) 100 mls @ 100 mls/hr IVPB Q12H [facility] Stop: 10/31/16 16:29 Last Admin: 10/13/16 04:07 Dose: 100 mls/hr Azithromycin 500 mg/ Sodium (Chloride) 250 mls @ 250 mls/hr IVPB DAILY [facility] Last Admin: 10/13/16 12:13 Dose: 250 mls/hr Sodium Chloride (Sodium Chloride 0.45%) 1,000 mls @ 60 mls/hr IV .[id number] [facility] Last Admin: 10/13/16 12:14 Dose: 60 mls/hr Pantoprazole Sodium (Protonix Inj) 40 mg IVP DAILY [facility] Last Admin: 10/13/16 10:06 Dose: 40 mg Rosuvastatin Calcium (Crestor) 2.5 mg PO HS [facility] Last Admin: 10/12/16 21:12 Dose: Not Given - Labs Labs: 10/13/16 08:14 10/13/16 07:05 - Constitutional Appears: Chronically Ill - Respiratory Exam Respiratory Exam: Rhonchi - Cardiovascular Exam Cardiovascular Exam: Tachycardia, REGULAR RHYTHM - GI/Abdominal Exam GI & Abdominal Exam: Soft - Neurological Exam Neurological Exam: Awake Assessment and Plan - Assessment and Plan (Free Text) Assessment: worsnning of renal failure,remains tachycardic & son.will obtain limited echo for lv function.
--- NOTE | 2016-10-13 13:00 | RAD ---
HISTORY: PNA, dyspnea at rest secondary to cancer COMPARISON: 10/11/2016 chest x-ray. ; chest abdomen and pelvis report 10/12/2016 FINDINGS: LUNGS: The right lung appears clear. There is masslike airspace opacity with bronchiectatic changes in the left mid to upper lung zone pleural base that is similar in appearance please note the after mentioned CT report for further findings. An underlying malignancy here needs to be considered PLEURA: No significant pleural effusion identified, no pneumothorax apparent. CARDIOVASCULAR: Mild cardiomegaly OSSEOUS STRUCTURES: No significant abnormalities. VISUALIZED UPPER ABDOMEN: Normal. OTHER FINDINGS: Right superior mediastinal soft tissue fullness concerning for lymphadenopathy -unchanged IMPRESSION: Left mid to upper lung zone pleural-based masslike opacity - an underlying malignancy here needs to be considered. Please note the aforementioned CT chest report Right superior mediastinal soft tissue fullness -concerning for lymphadenopathy. Please note the prior neck CT report 10/12/2006
[2016-10-13] MEDS ORDERED: Morphine 4 MG/ML VIAL IV ONE (16:15)
--- NOTE | 2016-10-13 18:26 | CP.PCM.PN ---
Subjective - Date & Time of Evaluation Date of Evaluation: 10/13/16 Time of Evaluation: 11:30 - Subjective Subjective: I came and saw the patient earlier in the day. Daughter and were at bedside. Overall prognosis is very poor - the patient is awake and interacting with family however mostly non verbal. He appears very tired and fatigued, probably from uremia. His urine out put has been anuric since admission and this is despite the patient being on IVF with bicarb and also a trial of lasix. I explained to the family members the situation was not good. Earlier ICU team had discussed with the family about code status and he is now DNR. I spoke with them about this agian and they again confirm DNR. Right now the patient is on bipap. Objective - Vital Signs/Intake and Output Vital Signs (last 24 hours): Temp Pulse Resp BP Pulse Ox 98 F 108 H 16 113/59 L 99 10/13/16 16:00 10/13/16 16:37 10/13/16 16:37 10/13/16 16:37 10/13/16 16:37 Intake and Output: 10/13/16 10/13/16 06:59 18:59 Intake Total 480 1030 Output Total 0 0 Balance 480 1030 - Medications Medications: Current Medications Albuterol/Ipratropium (Duoneb 3 Mg/0.5 Mg (3 Ml) Ud) 3 ml INH RQ6 [facility] Last Admin: 10/13/16 13:15 Dose: 3 ml Docusate Sodium (Colace) 100 mg PO BID [facility] Last Admin: 10/13/16 10:06 Dose: Not Given Ferric Sodium Gluconate Complex (Ferrlecit) 125 mg IVPB DAILY [facility] Stop: 10/20/16 12:01 Last Admin: 10/13/16 10:06 Dose: 125 mg Hydromorphone HCl (Dilaudid) 0.5 mg IVP Q4H PRN PRN Reason: pain Last Admin: 10/13/16 13:01 Dose: 0.5 mg Ceftriaxone Sodium 1 gm/ (Sodium Chloride) 100 mls @ 100 mls/hr IVPB Q12H [facility] Stop: 10/31/16 16:29 Last Admin: 10/13/16 14:36 Dose: 100 mls/hr Azithromycin 500 mg/ Sodium (Chloride) 250 mls @ 250 mls/hr IVPB DAILY [facility] Last Admin: 10/13/16 12:13 Dose: 250 mls/hr Sodium Chloride (Sodium Chloride 0.45%) 1,000 mls @ 60 mls/hr IV .[id number] [facility] Last Admin: 10/13/16 12:14 Dose: 60 mls/hr Pantoprazole Sodium (Protonix Inj) 40 mg IVP DAILY [facility] Last Admin: 10/13/16 10:06 Dose: 40 mg Rosuvastatin Calcium (Crestor) 2.5 mg PO HS [facility] Last Admin: 10/12/16 21:12 Dose: Not Given - Labs Labs: 10/13/16 08:14 10/13/16 07:05 Assessment and Plan - Assessment and Plan (Free Text) Assessment: Assessment & Plan (1) Renal failure (ARF), acute on chronic 10/13: Overall prognosis is very poor. I discussed this with the family member at bedside (daughter) also patient's at bedside as well. I explained to them the urine output was anuric and also the creatine remained elevated. Patient was made DNR and DNI previous night after ICU discussed with family. Patient is on IVF with bicarb at this time. BUN 100, Cr 8.1 on admission. No emergent HD at this time. . Renal US b/l hydronephrosis and possible non obstructing right lower pole urolith. (2) Pneumonia 10/13: At this time the patient is on Bipap - now DNR and DNI. Pneumonia complicated by history of lung cancer. WBC on admission 15.9 with left shift. Tachycardic HR 110's. Afebrile. Lactid Acid: 2.4 on admission. F/u repeat Lactid Acid. CXR shows increased density on left side of the lung in comparison to Chest X- Ray done on 09/07/16. f/u official report (3) Hyperkalemia 10/13: Ongoing renal failure K+ on admission 6.1 (4) Carcinoma, lung Patient with Mets to the bone and right mediastinal mass in right lower neck. Patient follows with Dr. Forde as outpatient. Recent chemo 2 weeks ago. Radiation as outpatient with Dr. Thomas. Morphine 4 mg IVP Q4H PRN for severe pain Patient's Heme/Onc- Dr. Forde- consulted- Help appreciated. (5) History of COPD (chronic obstructive pulmonary disease) : Recent CT scan showing a lot of emphesematous changes ABG on admission shows 7.26/41/88/18.4/-8.3/97.6 Duonebs Q6H PRN. (6) Metabolic acidosis /: Ongoing sepsis as well as renal failure. Prognosis is very poor (7) Diabetes mellitus ISS ACCUCHECKS ACHS (8) Prophylactic measure SCDs Chemical AC contraindicated due to history of recent GI bleed 08/2016. Protonix 40 mg IVP daily
[2016-10-13] MEDS: Rosuvastatin Calcium 2.5 mg Tab PO SCH (22:45)
[2016-10-14] MEDS: Albuterol-Ipratrop 3 mg / 0.5 (3 ml) UD INH SCH ×4 (01:01→19:29)
[2016-10-14] MEDS: HYDROmorphone 0.5 mg/0.5 ml ISec IVP PRN ×3 (01:20→18:32)
[2016-10-14] MEDS: Sodium Chloride 0.45% 1,000 ML IV SCH (05:45)
--- NOTE | 2016-10-14 07:13 | CP.CCUPN ---
<DoryKelsearandy - Last Filed: 10/14/16 13:36> CCU Subjective - Physician Review Subjective (Free Text): 10/13/16 12:01 Pt seen and examined in no acute distress. Patient has some exertional dyspnea at times, but currently stable on BiPAP. Patient anuric per nursing. In light of anuria and worsening kidney function, discussion necessary withd aughter regarding dialysis efforts. Patient's daughter signed for DNR/DNI measures overnight after long discussion with delivery specialist. Pt admits to some shortness of breath and some constipation. He denies headaches, chest pain, palpitations, subjective fevers or chills, at this time. 10/14/16 13:36 Pt seen and examined in no acute distress. Patient on BiPAP in the AM but experiencing discomfort and thus it was removed. Patient placed on non- rebreather. Daughter was considering hospice efforts but then spoke with Nephrology regarding attempting dialysis. Pt's daughter Ada consented. Pt denies headaches, chest pain, palpitations, subjective fevers or chills at this time. CCU Objective - Vital Signs / Intake & Output Vital Signs (Last 4 hours): Vital Signs Temp Pulse Resp BP Pulse Ox 10/14/16 05:06 112 H 10/14/16 04:01 112 H 16 104/82 94 L 10/14/16 04:00 97 F L 113 H 15 104/82 94 L Intake and Output (Last 8hrs): Intake & Output 10/13/16 10/14/16 10/14/16 22:59 06:59 14:59 Intake Total 460 300 Output Total 0 0 Balance 460 300 Intake: Intake, IV Amount 460 300 Right Wrist 460 300 Output: Urine 0 0 Urethral (Macdonald) 0 0 - Physical Exam Pupils: Positive for: PERRL Extroacular Muscles: Positive for: EOMI Conjunctiva: Positive for: Normal Mouth: Positive for: Moist Mucous Membranes Pharnyx: Positive for: Other (mass located right side of neck) Respiratory/Chest: Negative for: Wheezes Cardiovascular: Positive for: Normal S1, S2 Abdomen: Negative for: Tenderness, Distention, Normal Bowel Sounds, Peritoneal Signs Upper Extremity: Positive for: Normal Inspection Lower Extremity: Positive for: Normal Inspection Neurological: Positive for: CN II-XII Intact Skin: Positive for: Warm, Dry Psychiatric: Positive for: Alert - Medications Active Medications: Active Medications Generic Name Dose Route Start Last Admin Trade Name Freq PRN Reason Stop Dose Admin Albuterol/Ipratropium 3 ml 10/12/16 08:00 10/14/16 01:01 Duoneb 3 Mg/0.5 Mg (3 Ml) Ud INH 3 ml RQ6 JACKIE Administration Docusate Sodium 100 mg 10/12/16 10:00 10/13/16 18:31 Colace PO Not Given BID JACKIE Ferric Sodium Gluconate Complex 125 mg 10/12/16 12:00 10/13/16 10:06 Ferrlecit IVPB 10/20/16 12:01 125 mg DAILY JACKIE Administration Hydromorphone HCl 0.5 mg 10/13/16 01:45 10/14/16 01:20 Dilaudid IVP 0.5 mg Q4H PRN Administration pain Ceftriaxone Sodium 1 gm/ 100 mls @ 100 mls/hr 10/12/16 03:30 10/14/16 04:00 Sodium Chloride IVPB 10/31/16 16:29 100 mls/hr Q12H JACKIE Administration Azithromycin 500 mg/ Sodium 250 mls @ 250 mls/hr 10/12/16 10:00 10/13/16 12:13 Chloride IVPB 250 mls/hr DAILY JACKIE Administration Sodium Chloride 1,000 mls @ 60 mls/hr 10/13/16 11:30 10/14/16 05:45 Sodium Chloride 0.45% IV 60 mls/hr .[id number] JACKIE Administration Pantoprazole Sodium 40 mg 10/12/16 10:00 10/13/16 10:06 Protonix Inj IVP 40 mg DAILY JACKIE Administration Rosuvastatin Calcium 2.5 mg 10/12/16 22:00 10/13/16 22:45 Crestor PO Not Given HS JACKIE - Patient Studies Lab Studies: Microbiology Studies 10/12/16 11:40 MRSA Culture (Admit) - Final Naris MRSA NOT DETECTED Lab Studies 10/13/16 10/13/16 10/13/16 Range/Units 21:42 16:23 11:36 WBC (4.8-10.8) K/uL RBC (4.40-5.90) Mil/uL Hgb (12.0-18.0) g/dL Hct (35.0-51.0) % MCV (80.0-94.0) fL MCH (27.0-31.0) pg MCHC (33.0-37.0) g/dL RDW (11.5-14.5) % Plt Count (130-400) K/uL MPV (7.2-11.7) fL Neut % (Auto) (50.0-75.0) % Lymph % (Auto) (20.0-40.0) % [place] % (Auto) (0.0-10.0) % Eos % (Auto) (0.0-4.0) % Baso % (Auto) (0.0-2.0) % Neut # (1.8-7.0) K/uL Lymph # (1.0-4.3) K/uL [place] # (0.0-0.8) K/uL Eos # (0.0-0.7) K/uL Baso # (0.0-0.2) K/uL Neutrophils % (Manual) (50-75) % Band Neutrophils % (0-2) % Lymphocytes % (Manual) (20-40) % Monocytes % (Manual) (0-10) % Nucleated RBC % (0-0) % Toxic Granulation Platelet Estimate (NORMAL) Polychromasia Hypochromasia (manual) Poikilocytosis (manual Basophilic Stippling Anisocytosis (manual) Sodium (132-148) mmol/L Potassium (3.6-5.2) mmol/L Chloride (98-107) mmol/L Carbon Dioxide (22-30) mmol/L Anion Gap (10-20) BUN (9-20) mg/dL Creatinine (0.8-1.5) MG/DL Est GFR ( Amer) Est GFR (Non-Af Amer) POC Glucose (mg/dL) 147 H 170 H 208 H (65-110) mg/dL Random Glucose (75-110) mg/dL Calcium (8.6-10.4) mg/dl Phosphorus (2.5-4.5) mg/dL Magnesium (1.6-2.3) mg/dL Total Bilirubin (0.2-1.3) mg/dL AST (17-59) U/L ALT (21-72) U/L Alkaline Phosphatase (38-126) U/L Total Protein (6.3-8.3) g/dL Albumin (3.5-5.0) g/dL Globulin (2.2-3.9) gm/dL Albumin/Globulin Ratio (1.0-2.1) 10/13/16 10/13/16 10/13/16 Range/Units 08:14 08:02 07:05 WBC 15.5 H (4.8-10.8) K/uL RBC 2.86 L (4.40-5.90) Mil/uL Hgb 8.3 L (12.0-18.0) g/dL Hct 26.0 L (35.0-51.0) % MCV 90.9 (80.0-94.0) fL MCH 29.1 (27.0-31.0) pg MCHC 32.0 L (33.0-37.0) g/dL RDW 17.4 H (11.5-14.5) % Plt Count 127 L D (130-400) K/uL MPV 7.7 (7.2-11.7) fL Neut % (Auto) 94.0 H (50.0-75.0) % Lymph % (Auto) 1.8 L (20.0-40.0) % [place] % (Auto) 3.2 (0.0-10.0) % Eos % (Auto) 0.8 (0.0-4.0) % Baso % (Auto) 0.2 (0.0-2.0) % Neut # 14.6 H (1.8-7.0) K/uL Lymph # 0.3 L (1.0-4.3) K/uL [place] # 0.5 (0.0-0.8) K/uL Eos # 0.1 (0.0-0.7) K/uL Baso # 0.0 (0.0-0.2) K/uL Neutrophils % (Manual) 94 H (50-75) % Band Neutrophils % 3 H (0-2) % Lymphocytes % (Manual) 1 L (20-40) % Monocytes % (Manual) 2 (0-10) % Nucleated RBC % 2 H (0-0) % Toxic Granulation Present Platelet Estimate Slightly decreased L (NORMAL) Polychromasia Slight Hypochromasia (manual) Slight Poikilocytosis (manual Slight Basophilic Stippling Slight Anisocytosis (manual) Slight Sodium 141 (132-148) mmol/L Potassium 5.5 H (3.6-5.2) mmol/L Chloride 95 L (98-107) mmol/L Carbon Dioxide 24 (22-30) mmol/L Anion Gap 28 H (10-20) BUN 107 H* (9-20) mg/dL Creatinine 8.7 H* (0.8-1.5) MG/DL Est GFR ( Amer) 7 Est GFR (Non-Af Amer) 6 POC Glucose (mg/dL) 183 H (65-110) mg/dL Random Glucose 172 H (75-110) mg/dL Calcium 8.7 (8.6-10.4) mg/dl Phosphorus 6.4 H (2.5-4.5) mg/dL Magnesium 2.6 H (1.6-2.3) mg/dL Total Bilirubin 0.9 (0.2-1.3) mg/dL AST 103 H (17-59) U/L ALT 23 (21-72) U/L Alkaline Phosphatase 338 H (38-126) U/L Total Protein 6.4 (6.3-8.3) g/dL Albumin 2.9 L (3.5-5.0) g/dL Globulin 3.5 (2.2-3.9) gm/dL Albumin/Globulin Ratio 0.8 L (1.0-2.1) Laboratory Results - last 24 hr 10/13/16 10/13/16 10/13/16 07:05 08:02 08:14 WBC 15.5 H RBC 2.86 L Hgb 8.3 L Hct 26.0 L MCV 90.9 MCH 29.1 MCHC 32.0 L RDW 17.4 H Plt Count 127 L D MPV 7.7 Neut % (Auto) 94.0 H Lymph % (Auto) 1.8 L [place] % (Auto) 3.2 Eos % (Auto) 0.8 Baso % (Auto) 0.2 Neut # 14.6 H Lymph # 0.3 L [place] # 0.5 Eos # 0.1 Baso # 0.0 Neutrophils % (Manual) 94 H Band Neutrophils % 3 H Lymphocytes % (Manual) 1 L Monocytes % (Manual) 2 Nucleated RBC % 2 H Toxic Granulation Present Platelet Estimate Slightly decreased L Polychromasia Slight Hypochromasia (manual) Slight Poikilocytosis (manual Slight Basophilic Stippling Slight Anisocytosis (manual) Slight Sodium 141 Potassium 5.5 H Chloride 95 L Carbon Dioxide 24 Anion Gap 28 H BUN 107 H* Creatinine 8.7 H* Est GFR ( Amer) 7 Est GFR (Non-Af Amer) 6 POC Glucose (mg/dL) 183 H Random Glucose 172 H Calcium 8.7 Phosphorus 6.4 H Magnesium 2.6 H Total Bilirubin 0.9 AST 103 H ALT 23 Alkaline Phosphatase 338 H Total Protein 6.4 Albumin 2.9 L Globulin 3.5 Albumin/Globulin Ratio 0.8 L 10/13/16 10/13/16 10/13/16 11:36 16:23 21:42 WBC RBC Hgb Hct MCV MCH MCHC RDW Plt Count MPV Neut % (Auto) Lymph % (Auto) [place] % (Auto) Eos % (Auto) Baso % (Auto) Neut # Lymph # [place] # Eos # Baso # Neutrophils % (Manual) Band Neutrophils % Lymphocytes % (Manual) Monocytes % (Manual) Nucleated RBC % Toxic Granulation Platelet Estimate Polychromasia Hypochromasia (manual) Poikilocytosis (manual Basophilic Stippling Anisocytosis (manual) Sodium Potassium Chloride Carbon Dioxide Anion Gap BUN Creatinine Est GFR ( Amer) Est GFR (Non-Af Amer) POC Glucose (mg/dL) 208 H 170 H 147 H Random Glucose Calcium Phosphorus Magnesium Total Bilirubin AST ALT Alkaline Phosphatase Total Protein Albumin Globulin Albumin/Globulin Ratio Fingerstick Blood Sugar Results: 170 Review of Systems - Review of Systems Review of Systems: see subjective Critical Care Progress Note - Nutrition Nutrition: Nutrition Category Date Time Status NPO Diet [DIET] Diets 10/12/16 Breakfast Active Assessment/Plan - Assessment and Plan (Free Text) Assessment: 76 year old male with PMHx significant for Lung Ca with bone metastasis and mediastinal mass in lower right neck, HTN, DM II,HLD, CKD, presents with increased work of breathing secondary to cancer pushing against trachea narrowing the airway. Patient had an episode of respiratory distress earlier requiring BiPAP. Patient now DNR/DNI per family's wishes. Plan: Neuro: aaox3 Cardio: Elevated troponin likely due EKG on admission: sinus Tach with nonspecific T wave changes ANDREY # 1 and 2 mildly elevated[address] ANDREY [address] Cj Mcpherson consulted Anticoagulation held for recent GI bleed Pulm: Hx of SOB Pt in mild distress earlier while on NRB. Patient on BIPAP as tolerated. Switches to NRB when unable to tolerate. Pt monitored closely in the case that intubation is required CT chest done- confirming cancer findings VQ scan- low probability for PE Pneumonia with Lung cancer findings WBC inc Afebrile. Rocephin IVPB- Started 4/3 Azithromycin IVPB- Started 4/3 f/u sputum Cx Duonebs Q6H PRN DNI GI: Pureed diet May require swallow eval Elevated LFTs- Hep panel- negative Endo: ISS Accuchecks Heme: Lung Ca, Neck mass- suspected mets. F/U imaging to determine locations Dr. Forde ontjulia case Nephro: Poor Kidney function Nephro consult - Dialysis attempts per Daughter's wishes. will dialyze No Urine output Bladder scan- Not retaining Hyperkalemia- HD today Potassium still elevated MSK: Venous dopplers negative Palliative: DNR/DNI Prophylaxis: SCDs Chemical anticoagulation contraindicated due to hx of recent GI bleed on Aug 2016 admission Swallow eval will be needed <Yogesh Ferrari - Last Filed: 10/14/16 15:30> CCU Objective - Vital Signs / Intake & Output Vital Signs (Last 4 hours): Vital Signs Pulse 10/14/16 13:37 114 H Intake and Output (Last 8hrs): Intake & Output 10/14/16 10/14/16 10/14/16 06:59 14:59 22:59 Intake Total 580 60 Output Total 0 0 Balance 580 60 Weight 102 lb 11.767 oz Intake: Intake, IV Amount 580 60 Right Wrist 580 60 Output: Urine 0 0 Urethral (Macdonald) 0 0 - Medications Active Medications: Active Medications Generic Name Dose Route Start Last Admin Trade Name Freq PRN Reason Stop Dose Admin Albuterol/Ipratropium 3 ml 10/12/16 08:00 10/14/16 13:35 Duoneb 3 Mg/0.5 Mg (3 Ml) Ud INH 3 ml RQ6 JACKIE Administration Docusate Sodium 100 mg 10/12/16 10:00 10/14/16 11:01 Colace PO Not Given BID [facility] Ferric Sodium Gluconate Complex 125 mg 10/12/16 12:00 10/14/16 09:45 Ferrlecit IVPB 10/20/16 12:01 125 mg DAILY JACKIE Administration Hydromorphone HCl 0.5 mg 10/13/16 01:45 10/14/16 09:46 Dilaudid IVP 0.5 mg Q4H PRN Administration pain Ceftriaxone Sodium 1 gm/ 100 mls @ 100 mls/hr 10/12/16 03:30 10/14/16 04:00 Sodium Chloride IVPB 10/31/16 16:29 100 mls/hr Q12H JACKIE Administration Azithromycin 500 mg/ Sodium 250 mls @ 250 mls/hr 10/12/16 10:00 10/14/16 11:48 Chloride IVPB 250 mls/hr DAILY JACKIE Administration Sodium Chloride 1,000 mls @ 60 mls/hr 10/13/16 11:30 10/14/16 05:45 Sodium Chloride 0.45% IV 60 mls/hr .[id number] JACKIE Administration Pantoprazole Sodium 40 mg 10/12/16 10:00 10/14/16 09:50 Protonix Inj IVP 40 mg DAILY JACKIE Administration Rosuvastatin Calcium 2.5 mg 10/12/16 22:00 10/13/16 22:45 Crestor PO Not Given HS JACKIE - Patient Studies Lab Studies: Microbiology Studies 10/12/16 11:40 MRSA Culture (Admit) - Final Naris MRSA NOT DETECTED Lab Studies 10/14/16 10/14/16 10/14/16 Range/Units 11:35 11:29 07:17 WBC 17.5 H (4.8-10.8) K/uL RBC 2.88 L (4.40-5.90) Mil/uL Hgb 8.4 L (12.0-18.0) g/dL Hct 26.8 L (35.0-51.0) % MCV 93.0 D (80.0-94.0) fL MCH 29.1 (27.0-31.0) pg MCHC 31.3 L (33.0-37.0) g/dL RDW 17.9 H (11.5-14.5) % Plt Count 132 (130-400) K/uL MPV 7.5 (7.2-11.7) fL Neut % (Auto) 95.0 H (50.0-75.0) % Lymph % (Auto) 1.2 L (20.0-40.0) % [place] % (Auto) 3.5 (0.0-10.0) % Eos % (Auto) 0.1 (0.0-4.0) % Baso % (Auto) 0.2 (0.0-2.0) % Neut # 16.7 H (1.8-7.0) K/uL Lymph # 0.2 L (1.0-4.3) K/uL [place] # 0.6 (0.0-0.8) K/uL Eos # 0.0 (0.0-0.7) K/uL Baso # 0.0 (0.0-0.2) K/uL Neutrophils % (Manual) 92 H (50-75) % Band Neutrophils % 2 (0-2) % Lymphocytes % (Manual) 1 L (20-40) % Monocytes % (Manual) 5 (0-10) % Platelet Estimate Normal (NORMAL) Large Platelets Present Hypochromasia (manual) Slight Poikilocytosis (manual Slight Anisocytosis (manual) Slight Microcytosis (manual) Slight Macrocytosis (manual) Slight Sodium 141 (132-148) mmol/L Potassium 6.2 H* (3.6-5.2) mmol/L Chloride 98 (98-107) mmol/L Carbon Dioxide 19 L (22-30) mmol/L Anion Gap 30 H (10-20) BUN 112 H* (9-20) mg/dL Creatinine 9.4 H* (0.8-1.5) MG/DL Est GFR ( Amer) 7 Est GFR (Non-Af Amer) 5 POC Glucose (mg/dL) 155 H 104 (65-110) mg/dL Random Glucose 136 H (75-110) mg/dL Calcium 8.5 L (8.6-10.4) mg/dl Phosphorus 7.2 H (2.5-4.5) mg/dL Magnesium 2.5 H (1.6-2.3) mg/dL Total Bilirubin 1.7 H (0.2-1.3) mg/dL AST 101 H (17-59) U/L ALT 26 (21-72) U/L Alkaline Phosphatase 326 H (38-126) U/L Total Protein 7.1 (6.3-8.3) g/dL Albumin 3.1 L (3.5-5.0) g/dL Globulin 3.9 (2.2-3.9) gm/dL Albumin/Globulin Ratio 0.8 L (1.0-2.1) 10/13/16 10/13/16 Range/Units 21:42 16:23 WBC (4.8-10.8) K/uL RBC (4.40-5.90) Mil/uL Hgb (12.0-18.0) g/dL Hct (35.0-51.0) % MCV (80.0-94.0) fL MCH (27.0-31.0) pg MCHC (33.0-37.0) g/dL RDW (11.5-14.5) % Plt Count (130-400) K/uL MPV (7.2-11.7) fL Neut % (Auto) (50.0-75.0) % Lymph % (Auto) (20.0-40.0) % [place] % (Auto) (0.0-10.0) % Eos % (Auto) (0.0-4.0) % Baso % (Auto) (0.0-2.0) % Neut # (1.8-7.0) K/uL Lymph # (1.0-4.3) K/uL [place] # (0.0-0.8) K/uL Eos # (0.0-0.7) K/uL Baso # (0.0-0.2) K/uL Neutrophils % (Manual) (50-75) % Band Neutrophils % (0-2) % Lymphocytes % (Manual) (20-40) % Monocytes % (Manual) (0-10) % Platelet Estimate (NORMAL) Large Platelets Hypochromasia (manual) Poikilocytosis (manual Anisocytosis (manual) Microcytosis (manual) Macrocytosis (manual) Sodium (132-148) mmol/L Potassium (3.6-5.2) mmol/L Chloride (98-107) mmol/L Carbon Dioxide (22-30) mmol/L Anion Gap (10-20) BUN (9-20) mg/dL Creatinine (0.8-1.5) MG/DL Est GFR ( Amer) Est GFR (Non-Af Amer) POC Glucose (mg/dL) 147 H 170 H (65-110) mg/dL Random Glucose (75-110) mg/dL Calcium (8.6-10.4) mg/dl Phosphorus (2.5-4.5) mg/dL Magnesium (1.6-2.3) mg/dL Total Bilirubin (0.2-1.3) mg/dL AST (17-59) U/L ALT (21-72) U/L Alkaline Phosphatase (38-126) U/L Total Protein (6.3-8.3) g/dL Albumin (3.5-5.0) g/dL Globulin (2.2-3.9) gm/dL Albumin/Globulin Ratio (1.0-2.1) Laboratory Results - last 24 hr 10/13/16 10/13/16 10/14/16 16:23 21:42 07:17 WBC RBC Hgb Hct MCV MCH MCHC RDW Plt Count MPV Neut % (Auto) Lymph % (Auto) [place] % (Auto) Eos % (Auto) Baso % (Auto) Neut # Lymph # [place] # Eos # Baso # Neutrophils % (Manual) Band Neutrophils % Lymphocytes % (Manual) Monocytes % (Manual) Platelet Estimate Large Platelets Hypochromasia (manual) Poikilocytosis (manual Anisocytosis (manual) Microcytosis (manual) Macrocytosis (manual) Sodium Potassium Chloride Carbon Dioxide Anion Gap BUN Creatinine Est GFR ( Amer) Est GFR (Non-Af Amer) POC Glucose (mg/dL) 170 H 147 H 104 Random Glucose Calcium Phosphorus Magnesium Total Bilirubin AST ALT Alkaline Phosphatase Total Protein Albumin Globulin Albumin/Globulin Ratio 10/14/16 10/14/16 11:29 11:35 WBC 17.5 H RBC 2.88 L Hgb 8.4 L Hct 26.8 L MCV 93.0 D MCH 29.1 MCHC 31.3 L RDW 17.9 H Plt Count 132 MPV 7.5 Neut % (Auto) 95.0 H Lymph % (Auto) 1.2 L [place] % (Auto) 3.5 Eos % (Auto) 0.1 Baso % (Auto) 0.2 Neut # 16.7 H Lymph # 0.2 L [place] # 0.6 Eos # 0.0 Baso # 0.0 Neutrophils % (Manual) 92 H Band Neutrophils % 2 Lymphocytes % (Manual) 1 L Monocytes % (Manual) 5 Platelet Estimate Normal Large Platelets Present Hypochromasia (manual) Slight Poikilocytosis (manual Slight Anisocytosis (manual) Slight Microcytosis (manual) Slight Macrocytosis (manual) Slight Sodium 141 Potassium 6.2 H* Chloride 98 Carbon Dioxide 19 L Anion Gap 30 H BUN 112 H* Creatinine 9.4 H* Est GFR ( Amer) 7 Est GFR (Non-Af Amer) 5 POC Glucose (mg/dL) 155 H Random Glucose 136 H Calcium 8.5 L Phosphorus 7.2 H Magnesium 2.5 H Total Bilirubin 1.7 H AST 101 H ALT 26 Alkaline Phosphatase 326 H Total Protein 7.1 Albumin 3.1 L Globulin 3.9 Albumin/Globulin Ratio 0.8 L Critical Care Progress Note - Nutrition Nutrition: Nutrition Category Date Time Status Pureed [Dysphagia/Modified Consistency Diet] [DIET] Diets 10/14/16 Lunch Active Attending/Attestation - Attestation I have personally seen and examined this patient.: Yes I have fully participated in the care of the patient.: Yes I have reviewed all pertinent clinical information: Yes Notes (Text): 10/14/16 15:29 Patient seen and examined in the intensive care unit. Case discussed with house staff in the morning rounds. More alert and responsive. Remains on BiPAP Family change their mind and decided to go for hemodialysis Dialysis catheter inserted into right femoral vein under aseptic conditions and local anesthesia without any complications patient tolerated the procedure well Continue present treatment for now
--- NOTE | 2016-10-14 09:05 | CP.PCM.PN ---
Subjective - Date & Time of Evaluation Date of Evaluation: 10/14/16 Time of Evaluation: 08:30 - Subjective Subjective: Patient currently on Bipap. He remains anuric. The chest XRAY from yesterday shows the left lung opacification now increasing. Currently DNR and DNI. When I saw him he was able to open his eyes and able to hold my hand however that was the extent our interaction. Objective - Vital Signs/Intake and Output Vital Signs (last 24 hours): Temp Pulse Resp BP Pulse Ox 97 F L 111 H 15 131/70 100 10/14/16 04:00 10/14/16 07:43 10/14/16 07:01 10/14/16 07:01 10/14/16 07:01 Intake and Output: 10/14/16 10/14/16 06:59 18:59 Intake Total 760 60 Output Total 0 0 Balance 760 60 - Medications Medications: Current Medications Albuterol/Ipratropium (Duoneb 3 Mg/0.5 Mg (3 Ml) Ud) 3 ml INH RQ6 [facility] Last Admin: 10/14/16 07:43 Dose: 3 ml Docusate Sodium (Colace) 100 mg PO BID [facility] Last Admin: 10/13/16 18:31 Dose: Not Given Ferric Sodium Gluconate Complex (Ferrlecit) 125 mg IVPB DAILY [facility] Stop: 10/20/16 12:01 Last Admin: 10/13/16 10:06 Dose: 125 mg Hydromorphone HCl (Dilaudid) 0.5 mg IVP Q4H PRN PRN Reason: pain Last Admin: 10/14/16 01:20 Dose: 0.5 mg Ceftriaxone Sodium 1 gm/ (Sodium Chloride) 100 mls @ 100 mls/hr IVPB Q12H [facility] Stop: 10/31/16 16:29 Last Admin: 10/14/16 04:00 Dose: 100 mls/hr Azithromycin 500 mg/ Sodium (Chloride) 250 mls @ 250 mls/hr IVPB DAILY [facility] Last Admin: 10/13/16 12:13 Dose: 250 mls/hr Sodium Chloride (Sodium Chloride 0.45%) 1,000 mls @ 60 mls/hr IV .[id number] [facility] Last Admin: 10/14/16 05:45 Dose: 60 mls/hr Pantoprazole Sodium (Protonix Inj) 40 mg IVP DAILY [facility] Last Admin: 10/13/16 10:06 Dose: 40 mg Rosuvastatin Calcium (Crestor) 2.5 mg PO HS [facility] Last Admin: 10/13/16 22:45 Dose: Not Given - Labs Labs: 10/13/16 08:14 10/13/16 07:05 - Constitutional Appears: Well - Respiratory Exam Respiratory Exam: Decreased Breath Sounds, Rales Additional comments: Decreased breath sounds left lung - Cardiovascular Exam Cardiovascular Exam: REGULAR RHYTHM - GI/Abdominal Exam GI & Abdominal Exam: Normal Bowel Sounds - Neurological Exam Neurological Exam: Alert, Altered, Awake Neuro motor strength exam: Left Upper Extremity: 4, Right Upper Extremity: 4 - Psychiatric Exam Psychiatric exam: Depressed, Flat Affect - Skin Skin Exam: Pallor, Warm Assessment and Plan - Assessment and Plan (Free Text) Assessment: (1) Renal failure (ARF), acute on chronic 10/14: Patient remains anuric at this time 10/13: Overall prognosis is very poor. I discussed this with the family member at bedside (daughter) also patient's at bedside as well. I explained to them the urine output was anuric and also the creatine remained elevated. Patient was made DNR and DNI previous night after ICU discussed with family. Patient is on IVF with bicarb at this time. BUN 100, Cr 8.1 on admission. No emergent HD at this time. . Renal US b/l hydronephrosis and possible non obstructing right lower pole urolith. (2) Pneumonia 10/14: CXRAY showing worsening opacification of left lung 10/13: At this time the patient is on Bipap - now DNR and DNI. Pneumonia complicated by history of lung cancer. WBC on admission 15.9 with left shift. Tachycardic HR 110's. Afebrile. Lactid Acid: 2.4 on admission. F/u repeat Lactid Acid. CXR shows increased density on left side of the lung in comparison to Chest X- Ray done on 09/07/16. f/u official report (3) Hyperkalemia 10/13: Ongoing renal failure K+ on admission 6.1 (4) Carcinoma, lung Patient with Mets to the bone and right mediastinal mass in right lower neck. Patient follows with Dr. Forde as outpatient. Recent chemo 2 weeks ago. Radiation as outpatient with Dr. Thomas. Morphine 4 mg IVP Q4H PRN for severe pain Patient's Heme/Onc- Dr. Forde- consulted- Help appreciated. (5) History of COPD (chronic obstructive pulmonary disease) 10/13: Recent CT scan showing a lot of emphesematous changes ABG on admission shows 7.26/41/88/18.4/-8.3/97.6 Duonebs Q6H PRN. (6) Metabolic acidosis 10/13: Ongoing sepsis as well as renal failure. Prognosis is very poor (7) Diabetes mellitus ISS ACCUCHECKS ACHS (8) Prophylactic measure SCDs Chemical AC contraindicated due to history of recent GI bleed 08/2016. Protonix 40 mg IVP daily
[2016-10-14] MEDS: Ferric Sodium Gluconat Complex 62.5 mg/5 ml Vial IVPB SCH (09:45)
--- NOTE | 2016-10-14 11:32 | CP.PCM.PN ---
Subjective - Date & Time of Evaluation Date of Evaluation: 10/14/16 Time of Evaluation: 11:17 - Subjective Subjective: Patient on BiPap, offers no complaints, looks agitated at times. Objective - Vital Signs/Intake and Output Vital Signs (last 24 hours): Temp Pulse Resp BP Pulse Ox 97 F L 111 H 15 131/70 100 10/14/16 04:00 10/14/16 07:43 10/14/16 07:01 10/14/16 07:01 10/14/16 07:01 Intake and Output: 10/14/16 10/14/16 06:59 18:59 Intake Total 760 60 Output Total 0 0 Balance 760 60 - Medications Medications: Current Medications Albuterol/Ipratropium (Duoneb 3 Mg/0.5 Mg (3 Ml) Ud) 3 ml INH RQ6 [facility] Last Admin: 10/14/16 07:43 Dose: 3 ml Docusate Sodium (Colace) 100 mg PO BID [facility] Last Admin: 10/14/16 11:01 Dose: Not Given Ferric Sodium Gluconate Complex (Ferrlecit) 125 mg IVPB DAILY [facility] Stop: 10/20/16 12:01 Last Admin: 10/14/16 09:45 Dose: 125 mg Hydromorphone HCl (Dilaudid) 0.5 mg IVP Q4H PRN PRN Reason: pain Last Admin: 10/14/16 09:46 Dose: 0.5 mg Ceftriaxone Sodium 1 gm/ (Sodium Chloride) 100 mls @ 100 mls/hr IVPB Q12H [facility] Stop: 10/31/16 16:29 Last Admin: 10/14/16 04:00 Dose: 100 mls/hr Azithromycin 500 mg/ Sodium (Chloride) 250 mls @ 250 mls/hr IVPB DAILY [facility] Last Admin: 10/13/16 12:13 Dose: 250 mls/hr Sodium Chloride (Sodium Chloride 0.45%) 1,000 mls @ 60 mls/hr IV .[id number] [facility] Last Admin: 10/14/16 05:45 Dose: 60 mls/hr Pantoprazole Sodium (Protonix Inj) 40 mg IVP DAILY [facility] Last Admin: 10/14/16 09:50 Dose: 40 mg Rosuvastatin Calcium (Crestor) 2.5 mg PO HS [facility] Last Admin: 10/13/16 22:45 Dose: Not Given - Labs Labs: 10/13/16 08:14 10/13/16 07:05 - Constitutional Appears: In Acute Distress - Head Exam Head Exam: ATRAUMATIC - Eye Exam Eye Exam: Normal appearance Pupil Exam: NORMAL ACCOMODATION - ENT Exam ENT Exam: Mucous Membranes Dry - Neck Exam Additional comments: Right neck palpable mass - Respiratory Exam Respiratory Exam: Accessory Muscle Use - Cardiovascular Exam Cardiovascular Exam: Tachycardia - GI/Abdominal Exam GI & Abdominal Exam: Diminished Bowel Sounds - Exam Additional comments: Anuria - Extremities Exam Extremities Exam: Normal Capillary Refill - Back Exam Back Exam: NORMAL INSPECTION - Neurological Exam Neurological Exam: Alert Neuro motor strength exam: Left Upper Extremity: 2/1, Right Upper Extremity: 2/1 , Left Lower Extremity: 2/1, Right Lower Extremity: 2/1 - Psychiatric Exam Psychiatric exam: Agitated - Skin Skin Exam: Normal Color Assessment and Plan - Assessment and Plan (Free Text) Assessment: Patient examined in bed with BiPap on. Patient makes brief eye contacts only. Appears very sick. There is anuria.The daughter chose DNR/DNI the other day. I met with daughter today. She was crying. I comforted her. The daughter admits realizing that her father was dying a and his wishes were to at home. We discussed hospice care at home. I corrected her knowledge regarding comfort care at home. The daughter Ada agreed that it was level of care her father would want for him self at this stage of his life. I made Doctor Aderito aware and placed order for hospice eval as agreed with Doctor. Impression * This patient is at final stage of his life * Respiratory distress due to large right neck mass pressing on trachea * Patient is DNR/DNI * As per daughter, patient would want to at home Suggestion * Would recommend comfort care at home; daughter agreed with * Symptomatic therapy only * Would discontinue all further diagnostic studies, including lab work
[2016-10-14 11:47] LABS: BASO % 0.2 % (0.0-2.0); EOS % 0.1 % (0.0-4.0); HEMATOCRIT 26.8 % (35.0-51.0); LYMPH # 0.2 K/uL (1.0-4.3); LYMPH % 1.2 % (20.0-40.0); MEAN CORPUSCULAR HEMOGLOBIN 29.1 pg (27.0-31.0); MEAN CORPUSCULAR HGB CONC 31.3 g/dL (33.0-37.0); MEAN PLATELET VOLUME 7.5 fL (7.2-11.7); MONO # 0.6 K/uL (0.0-0.8); MONO % 3.5 % (0.0-10.0); NRBC % 0.3 % (0.0-2.0); PLATELET COUNT 132 K/uL (130-400); RED CELL DISTRIBUTION WIDTH 17.9 % (11.5-14.5); WHITE BLOOD COUNT 17.5 K/uL (4.8-10.8)
[2016-10-14] MEDS: Azithromycin 500 MG in Sodium Chloride 0.9% 250 ML IVPB SCH (11:48)
[2016-10-14 11:49] LABS: BILIRUBIN,TOTAL 1.7 mg/dL (0.2-1.3)
[2016-10-14 11:50] LABS: ALB/GLOB RATIO 0.8 (1.0-2.1); CALCIUM 8.5 mg/dl (8.6-10.4); PHOSPHOROUS 7.2 mg/dL (2.5-4.5); TOTAL PROTEIN 7.1 g/dL (6.3-8.3)
[2016-10-14 11:51] LABS: MAGNESIUM 2.5 mg/dL (1.6-2.3)
[2016-10-14 11:56] LABS: POTASSIUM 6.2 mmol/L (3.6-5.2)
--- NOTE | 2016-10-14 12:04 | CP.PCM.PN ---
Subjective - Date & Time of Evaluation Date of Evaluation: 10/14/16 Time of Evaluation: 12:03 - Subjective Subjective: lethargic,on bipap.vitals,labs noted. Objective - Vital Signs/Intake and Output Vital Signs (last 24 hours): Temp Pulse Resp BP Pulse Ox 97.6 F 114 H 13 107/65 99 10/14/16 08:00 10/14/16 11:01 10/14/16 11:01 10/14/16 11:01 10/14/16 11:01 Intake and Output: 10/14/16 10/14/16 06:59 18:59 Intake Total 760 60 Output Total 0 0 Balance 760 60 - Medications Medications: Current Medications Albuterol/Ipratropium (Duoneb 3 Mg/0.5 Mg (3 Ml) Ud) 3 ml INH RQ6 [facility] Last Admin: 10/14/16 07:43 Dose: 3 ml Docusate Sodium (Colace) 100 mg PO BID [facility] Last Admin: 10/14/16 11:01 Dose: Not Given Ferric Sodium Gluconate Complex (Ferrlecit) 125 mg IVPB DAILY [facility] Stop: 10/20/16 12:01 Last Admin: 10/14/16 09:45 Dose: 125 mg Hydromorphone HCl (Dilaudid) 0.5 mg IVP Q4H PRN PRN Reason: pain Last Admin: 10/14/16 09:46 Dose: 0.5 mg Ceftriaxone Sodium 1 gm/ (Sodium Chloride) 100 mls @ 100 mls/hr IVPB Q12H [facility] Stop: 10/31/16 16:29 Last Admin: 10/14/16 04:00 Dose: 100 mls/hr Azithromycin 500 mg/ Sodium (Chloride) 250 mls @ 250 mls/hr IVPB DAILY [facility] Last Admin: 10/14/16 11:48 Dose: 250 mls/hr Sodium Chloride (Sodium Chloride 0.45%) 1,000 mls @ 60 mls/hr IV .[id number] [facility] Last Admin: 10/14/16 05:45 Dose: 60 mls/hr Pantoprazole Sodium (Protonix Inj) 40 mg IVP DAILY [facility] Last Admin: 10/14/16 09:50 Dose: 40 mg Rosuvastatin Calcium (Crestor) 2.5 mg PO HS [facility] Last Admin: 10/13/16 22:45 Dose: Not Given - Labs Labs: 10/14/16 11:35 10/14/16 11:35 - Constitutional Appears: Chronically Ill - Respiratory Exam Respiratory Exam: Decreased Breath Sounds - Cardiovascular Exam Cardiovascular Exam: Tachycardia - GI/Abdominal Exam GI & Abdominal Exam: Soft Assessment and Plan - Assessment and Plan (Free Text) Assessment: no significant change in condition.consider dnr.
[2016-10-14 12:10] LABS: NEUTROPHIL 92 % (50-75); TOTAL CELLS COUNTED 100
[2016-10-14 12:11] LABS: LARGE PLATELETS PRESENT
--- NOTE | 2016-10-14 12:42 | CP.PCM.PN ---
Subjective - Date & Time of Evaluation Date of Evaluation: 10/14/16 Time of Evaluation: 12:37 - Subjective Subjective: Reviewed case, discussed with daughter for 20 minutes. Discussed at length with ICU team as well. Agree that prognosis is grim. Daughter still want to try ASSIGNMENT OFFICER as patient very alert. Remains anuric; on biPAP; on treatment for hyperkalemia. Renal US shows hydro; CT scan does not ICU taem will place HD cath; will schedule dialysis later Objective - Vital Signs/Intake and Output Vital Signs (last 24 hours): Temp Pulse Resp BP Pulse Ox 97.6 F 114 H 13 107/65 99 10/14/16 08:00 10/14/16 11:01 10/14/16 11:01 10/14/16 11:01 10/14/16 11:01 Intake and Output: 10/14/16 10/14/16 06:59 18:59 Intake Total 760 60 Output Total 0 0 Balance 760 60 - Medications Medications: Current Medications Albuterol/Ipratropium (Duoneb 3 Mg/0.5 Mg (3 Ml) Ud) 3 ml INH RQ6 [facility] Last Admin: 10/14/16 07:43 Dose: 3 ml Docusate Sodium (Colace) 100 mg PO BID [facility] Last Admin: 10/14/16 11:01 Dose: Not Given Ferric Sodium Gluconate Complex (Ferrlecit) 125 mg IVPB DAILY [facility] Stop: 10/20/16 12:01 Last Admin: 10/14/16 09:45 Dose: 125 mg Hydromorphone HCl (Dilaudid) 0.5 mg IVP Q4H PRN PRN Reason: pain Last Admin: 10/14/16 09:46 Dose: 0.5 mg Ceftriaxone Sodium 1 gm/ (Sodium Chloride) 100 mls @ 100 mls/hr IVPB Q12H [facility] Stop: 10/31/16 16:29 Last Admin: 10/14/16 04:00 Dose: 100 mls/hr Azithromycin 500 mg/ Sodium (Chloride) 250 mls @ 250 mls/hr IVPB DAILY [facility] Last Admin: 10/14/16 11:48 Dose: 250 mls/hr Sodium Chloride (Sodium Chloride 0.45%) 1,000 mls @ 60 mls/hr IV .[id number] [facility] Last Admin: 10/14/16 05:45 Dose: 60 mls/hr Pantoprazole Sodium (Protonix Inj) 40 mg IVP DAILY [facility] Last Admin: 10/14/16 09:50 Dose: 40 mg Rosuvastatin Calcium (Crestor) 2.5 mg PO HS [facility] Last Admin: 10/13/16 22:45 Dose: Not Given - Labs Labs: 10/14/16 11:35 10/14/16 11:35 - Constitutional Appears: Toxic, In Acute Distress, Chronically Ill - Head Exam Head Exam: ATRAUMATIC, NORMAL INSPECTION - Eye Exam Eye Exam: EOMI, Normal appearance - Neck Exam Neck Exam: Normal Inspection. absent: Tenderness - Respiratory Exam Respiratory Exam: Rhonchi, Respiratory Distress - Cardiovascular Exam Cardiovascular Exam: Tachycardia, +S1 - GI/Abdominal Exam GI & Abdominal Exam: Soft. absent: Tenderness - Extremities Exam Extremities Exam: Normal Inspection. absent: Tenderness - Neurological Exam Neurological Exam: Alert, CN II-XII Intact - Skin Skin Exam: Dry, Warm Assessment and Plan (1) Lung cancer Status: Acute (2) Metastatic cancer to bone Status: Acute (3) COPD (chronic obstructive pulmonary disease) Status: Chronic (4) Anuria Status: Acute (5) CK (acute kidney injury) Status: Acute - Assessment and Plan (Free Text) Plan: After discussion with family will attempt ASSIGNMENT OFFICER
--- NOTE | 2016-10-14 14:31 | VASCLAB ---
PROCEDURE: Lower Extremity Venous Duplex Exam. HISTORY: pna, sob, cancer, mets PRIORS: None. TECHNIQUE: Bilateral common femoral, femoral, popliteal and posterior tibial, peroneal and great saphenous veins were evaluated. Flow was assessed with color Doppler, compressibility, assessment of phasic flow and augmentation response. Report prepared by Edmund Lopez, NOHEMI, RVT FINDINGS: RIGHT: 1. Common Femoral Vein: 1.1. Compressibility - Fully compressible: Thrombus - None : Flow - Phasic: Augmentation -Normal: Reflux - None. 2. Femoral Vein: 2.1. Compressibility - Fully compressible: Thrombus - None : Flow - Phasic: Augmentation -Normal: Reflux - None. 3. Popliteal Vein: 3.1. Compressibility - Fully compressible: Thrombus - None : Flow - Phasic: Augmentation -Normal: Reflux - None. 4. Posterior Tibial Vein: 4.1. Compressibility - Fully compressible: Thrombus - None: Flow - Phasic: Augmentation -Normal: Reflux - None. 5. Peroneal Vein: 5.1. Compressibility - Fully compressible: Thrombus - None: Flow - Phasic: Augmentation -Normal: Reflux - None. 6. Great Saphenous Vein: 6.1. Compressibility - Fully compressible: Thrombus - None: Flow - Phasic: Augmentation - Normal: Reflux - None. LEFT: 1. Common Femoral Vein: 1.1. Compressibility - Fully compressible: Thrombus - None: Flow - Phasic: Augmentation -Normal: Reflux - None. 2. Femoral Vein: 2.1. Compressibility - Fully compressible: Thrombus - None: Flow - Phasic: Augmentation -Normal: Reflux - None. 3. Popliteal Vein: 3.1. Compressibility - Fully compressible: Thrombus - None : Flow - Phasic: Augmentation -Normal: Reflux - None. 4. Posterior Tibial Vein: 4.1. Compressibility - Fully compressible: Thrombus - None: Flow - Phasic: Augmentation -Normal: Reflux - None. 5. Peroneal Vein: 5.1. Compressibility - Fully compressible: Thrombus - None: Flow - Phasic: Augmentation -Normal: Reflux - None. 6. Great Saphenous Vein: 6.1. Compressibility - Fully compressible: Thrombus - None: Flow - Phasic: Augmentation - Normal: Reflux - None. OTHER FINDINGS: Right: None significant. Left: None significant. IMPRESSION: Right: No evidence of deep or superficial vein thrombosis of the right lower extremity. Normal valve function noted of the right side. Left: No evidence of deep or superficial vein thrombosis of the left lower extremity. Normal valve function noted of the left side.
[2016-10-14] MEDS ORDERED: Midazolam 2 MG/2 ML VIAL ONE (14:45)
--- NOTE | 2016-10-14 14:45 | CARD ---
APPROVED REPORT EXAM: LIMITED Two-dimensional and M-mode echocardiogram. Other Information Quality : LimitedRhythm : NSR INDICATION Dyspnea COPD DE RISK FACTORS Hyperlipidemia Diabetes Mitral Valve E/A ratio0.0 TDI E/Lateral E'0.0E/Medial E'0.0 LEFT VENTRICLE The left ventricle is normal size. There is normal left ventricular wall thickness. Left ventricle systolic function is normal. The Ejection Fraction is 55-60%. There is normal LV segmental wall motion. RIGHT VENTRICLE The right ventricle is normal size. There is normal right ventricular wall thickness. The right ventricular systolic function is normal. ATRIA The left atrium size is normal. The right atrium size is normal. The interatrial septum is intact with no evidence for an atrial septal defect. AORTIC VALVE The aortic valve is normal in structure. No aortic regurgitation is present. There is no aortic valvular stenosis. MITRAL VALVE The mitral valve is normal in structure. There is no evidence of mitral valve prolapse. There is no mitral valve stenosis. Mitral regurgitation is mild. TRICUSPID VALVE The tricuspid valve is normal in structure. There is no tricuspid valve regurgitation noted. There is no tricuspid valve prolapse or vegetation. There is no tricuspid valve stenosis. PULMONIC VALVE The pulmonic valve is not well visualized. There is no pulmonic valvular regurgitation. GREAT VESSELS The aortic root is normal in size. PERICARDIAL EFFUSION There is no significant pericardial effusion. <Conclusion> Left ventricle systolic function is normal. The Ejection Fraction is 55-60%. No aortic regurgitation is present. Mitral regurgitation is mild. There is no tricuspid valve regurgitation noted. There is no pulmonic valvular regurgitation.
[2016-10-14] MEDS ORDERED: Midazolam 2 MG/2 ML VIAL IVP ONE (15:15)
[2016-10-14 18:11] LABS: BASO % 0.1 % (0.0-2.0); EOS % 0.1 % (0.0-4.0); HEMATOCRIT 27.2 % (35.0-51.0); LYMPH # 0.3 K/uL (1.0-4.3); LYMPH % 1.3 % (20.0-40.0); MEAN CELL VOLUME 91.8 fL (80.0-94.0); MEAN CORPUSCULAR HGB CONC 31.6 g/dL (33.0-37.0); MEAN PLATELET VOLUME 7.1 fL (7.2-11.7); MONO # 0.5 K/uL (0.0-0.8); MONO % 2.2 % (0.0-10.0); NRBC % 0.8 % (0.0-2.0); PLATELET COUNT 186 K/uL (130-400); RED CELL DISTRIBUTION WIDTH 18.4 % (11.5-14.5); WHITE BLOOD COUNT 22.4 K/uL (4.8-10.8)
[2016-10-14 18:29] LABS: ALB/GLOB RATIO 0.8 (1.0-2.1); BILIRUBIN,TOTAL 1.3 mg/dL (0.2-1.3); TOTAL PROTEIN 6.8 g/dL (6.3-8.3)
[2016-10-14 18:30] LABS: CALCIUM 8.1 mg/dl (8.6-10.4); MAGNESIUM 2.1 mg/dL (1.6-2.3); PHOSPHOROUS 3.6 mg/dL (2.5-4.5)
[2016-10-14 19:42] LABS: METAMYELOCYTE 1 % (0-0); NEUTROPHIL 87 % (50-75); TOTAL CELLS COUNTED 100
[2016-10-14] MEDS: Rosuvastatin Calcium 2.5 mg Tab PO SCH (22:02)
[2016-10-15] MEDS: Albuterol-Ipratrop 3 mg / 0.5 (3 ml) UD INH SCH ×4 (01:15→20:00)
[2016-10-15] MEDS: HYDROmorphone 0.5 mg/0.5 ml ISec IVP PRN ×5 (01:30→19:53)
[2016-10-15] MEDS: Sodium Chloride 0.45% 1,000 ML IV SCH (02:04)
[2016-10-15 06:09] LABS: BASO % 0.1 % (0.0-2.0); HEMATOCRIT 25.6 % (35.0-51.0); LYMPH # 0.3 K/uL (1.0-4.3); LYMPH % 1.5 % (20.0-40.0); MEAN CELL VOLUME 92.5 fL (80.0-94.0); MEAN CORPUSCULAR HGB CONC 31.3 g/dL (33.0-37.0); MEAN PLATELET VOLUME 7.6 fL (7.2-11.7); MONO # 0.6 K/uL (0.0-0.8); MONO % 3.5 % (0.0-10.0); NRBC % 0.4 % (0.0-2.0); PLATELET COUNT 121 K/uL (130-400); RED CELL DISTRIBUTION WIDTH 18.1 % (11.5-14.5); WHITE BLOOD COUNT 17.8 K/uL (4.8-10.8)
[2016-10-15 06:18] LABS: POTASSIUM 5.3 mmol/L (3.6-5.2)
[2016-10-15 06:20] LABS: ALB/GLOB RATIO 0.8 (1.0-2.1); BILIRUBIN,TOTAL 1.6 mg/dL (0.2-1.3); TOTAL PROTEIN 6.8 g/dL (6.3-8.3)
[2016-10-15 06:21] LABS: CALCIUM 8.3 mg/dl (8.6-10.4); MAGNESIUM 2.1 mg/dL (1.6-2.3); PHOSPHOROUS 6.4 mg/dL (2.5-4.5)
[2016-10-15 08:34] LABS: EOSINOPHIL 1 % (0-4); NEUTROPHIL 90 % (50-75); TOTAL CELLS COUNTED 100
[2016-10-15] MEDS: Ferric Sodium Gluconat Complex 62.5 mg/5 ml Vial IVPB SCH (09:37)
--- NOTE | 2016-10-15 09:43 | CP.PCM.PN ---
Subjective - Date & Time of Evaluation Date of Evaluation: 10/15/16 Time of Evaluation: 09:41 - Subjective Subjective: s/p dialysis 4/5- tolerated well; no fluid removal on biPAP; alert - c/o right flank pains On IV fluids- not eating- check with ICU team about ability to eat Will try dialysis again , add fluid removal as patient still anuric Objective - Vital Signs/Intake and Output Vital Signs (last 24 hours): Temp Pulse Resp BP Pulse Ox 97.2 F L 102 H 16 132/69 100 10/15/16 04:00 10/15/16 08:11 10/15/16 07:00 10/15/16 06:56 10/15/16 07:00 Intake and Output: 10/15/16 10/15/16 06:59 18:59 Intake Total 790 60 Output Total 10 0 Balance 780 60 - Medications Medications: Current Medications Albuterol/Ipratropium (Duoneb 3 Mg/0.5 Mg (3 Ml) Ud) 3 ml INH RQ6 [facility] Last Admin: 10/15/16 08:11 Dose: 3 [facility] Docusate Sodium (Colace) 100 mg PO BID [facility] Last Admin: 10/15/16 09:37 Dose: 100 mg Ferric Sodium Gluconate Complex (Ferrlecit) 125 mg IVPB DAILY [facility] Stop: 10/20/16 12:01 Last Admin: 10/15/16 09:37 Dose: 125 mg Hydromorphone HCl (Dilaudid) 0.5 mg IVP Q4H PRN PRN Reason: pain Last Admin: 10/15/16 09:34 Dose: 0.5 mg Ceftriaxone Sodium 1 gm/ (Sodium Chloride) 100 mls @ 100 mls/hr IVPB Q12H [facility] Stop: 10/31/16 16:29 Last Admin: 10/15/16 03:34 Dose: 100 mls/hr Azithromycin 500 mg/ Sodium (Chloride) 250 mls @ 250 mls/hr IVPB DAILY [facility] Last Admin: 10/14/16 11:48 Dose: 250 mls/hr Sodium Chloride (Sodium Chloride 0.45%) 1,000 mls @ 60 mls/hr IV .[id number] [facility] Last Admin: 10/15/16 02:04 Dose: 60 mls/hr Pantoprazole Sodium (Protonix Inj) 40 mg IVP DAILY [facility] Last Admin: 10/15/16 09:36 Dose: 40 mg Rosuvastatin Calcium (Crestor) 2.5 mg PO HS [facility] Last Admin: 10/14/16 22:02 Dose: Not Given - Labs Labs: 10/15/16 05:54 10/15/16 05:54 - Constitutional Appears: In Acute Distress, Chronically Ill - Head Exam Head Exam: ATRAUMATIC, NORMAL INSPECTION - Eye Exam Eye Exam: EOMI, Normal appearance - Neck Exam Neck Exam: Normal Inspection. absent: Tenderness - Respiratory Exam Respiratory Exam: Rhonchi, Respiratory Distress - Cardiovascular Exam Cardiovascular Exam: Tachycardia, +S1 - GI/Abdominal Exam GI & Abdominal Exam: Soft, Tenderness - Extremities Exam Extremities Exam: Normal Inspection. absent: Tenderness - Neurological Exam Neurological Exam: Awake, CN II-XII Intact - Skin Skin Exam: Dry, Warm Assessment and Plan (1) Lung cancer Status: Acute (2) Metastatic cancer to bone Status: Acute (3) COPD (chronic obstructive pulmonary disease) Status: Chronic (4) Anuria Status: Acute (5) CK (acute kidney injury) Status: Acute - Assessment and Plan (Free Text) Plan: repeat dialysis today with UF await feeding attempts repeat renal US- ? hydro check iron stores
[2016-10-15] MEDS ORDERED: Sodium Chloride 0.45% 1,000 ML IV SCH (09:47)
--- NOTE | 2016-10-15 11:05 | CP.CCUPN ---
<Nicki Connors - Last Filed: 10/15/16 15:45> CCU Subjective - Physician Review Subjective (Free Text): 10/13/16 12:01 Pt seen and examined in no acute distress. Patient has some exertional dyspnea at times, but currently stable on BiPAP. Patient anuric per nursing. In light of anuria and worsening kidney function, discussion necessary withd aughter regarding dialysis efforts. Patient's daughter signed for DNR/DNI measures overnight after long discussion with manager business banking. Pt admits to some shortness of breath and some constipation. He denies headaches, chest pain, palpitations, subjective fevers or chills, at this time. 10/14/16 13:36 Pt seen and examined in no acute distress. Patient on BiPAP in the AM but experiencing discomfort and thus it was removed. Patient placed on non- rebreather. Daughter was considering hospice efforts but then spoke with Nephrology regarding attempting dialysis. Pt's daughter Ada consented. Pt denies headaches, chest pain, palpitations, subjective fevers or chills at this time. 10/15/16 15:45 Pt seen and examined in no acute distress. Long discussion with daughter earlier today regarding fci outcomes of being on dialysis. It was explained that dialysis does not change the fact that patient still has difficulties with breathing. Patient is almost completely reliant on BiPAP for breathing which complicates any palliative efforts that the family was originally considering. Patient's daughter took some time to think things through and would like to focus on comfort care measures and hospice care at this time. Patient not able to answer ROS at this time due to BiPAP mask. CCU Objective - Vital Signs / Intake & Output Vital Signs (Last 4 hours): Vital Signs Pulse 10/15/16 10:53 107 H 10/15/16 08:11 102 H Intake and Output (Last 8hrs): Intake & Output 10/14/16 10/15/16 10/15/16 22:59 06:59 14:59 Intake Total 540 490 60 Output Total 20 0 0 Balance 520 490 60 Weight 111 lb 10 oz Intake: Intake, IV Amount 540 490 60 Right Wrist 480 480 60 Right Forearm 10 Right Hand 60 Left Forearm 0 Output: Urine 20 0 0 Urethral (Macdonald) 20 0 0 Other: # Bowel Movements 0 0 0 - Physical Exam Pupils: Positive for: PERRL Extroacular Muscles: Positive for: EOMI Conjunctiva: Positive for: Normal Mouth: Positive for: Moist Mucous Membranes Pharnyx: Positive for: Other (mass located right side of neck) Respiratory/Chest: Negative for: Wheezes Cardiovascular: Positive for: Normal S1, S2 Abdomen: Negative for: Tenderness, Distention, Normal Bowel Sounds, Peritoneal Signs Upper Extremity: Positive for: Normal Inspection Lower Extremity: Positive for: Normal Inspection Neurological: Positive for: CN II-XII Intact Skin: Positive for: Warm, Dry Psychiatric: Positive for: Alert - Medications Active Medications: Active Medications Generic Name Dose Route Start Last Admin Trade Name Freq PRN Reason Stop Dose Admin Albuterol/Ipratropium 3 ml 10/12/16 08:00 10/15/16 08:11 Duoneb 3 Mg/0.5 Mg (3 Ml) Ud INH 3 ml RQ6 JACKIE Administration Calcium Acetate 667 mg 10/15/16 17:00 Phoslo PO BIDCC JACKIE Docusate Sodium 100 mg 10/12/16 10:00 10/15/16 09:37 Colace PO 100 mg BID JACKIE Administration Ferric Sodium Gluconate Complex 125 mg 10/12/16 12:00 10/15/16 09:37 Ferrlecit IVPB 10/20/16 12:01 125 mg DAILY JACKIE Administration Hydromorphone HCl 0.5 mg 10/13/16 01:45 10/15/16 09:34 Dilaudid IVP 0.5 mg Q4H PRN Administration pain Ceftriaxone Sodium 1 gm/ 100 mls @ 100 mls/hr 10/12/16 03:30 10/15/16 03:34 Sodium Chloride IVPB 10/31/16 16:29 100 mls/hr Q12H JACKIE Administration Azithromycin 500 mg/ Sodium 250 mls @ 250 mls/hr 10/12/16 10:00 10/14/16 11:48 Chloride IVPB 250 mls/hr DAILY JACKIE Administration Sodium Chloride 1,000 mls @ 30 mls/hr 10/15/16 09:47 Sodium Chloride 0.45% IV .Q24H JACKIE Pantoprazole Sodium 40 mg 10/12/16 10:00 10/15/16 09:36 Protonix Inj IVP 40 mg DAILY JACKIE Administration Rosuvastatin Calcium 2.5 mg 10/12/16 22:00 10/14/16 22:02 Crestor PO Not Given HS JACKIE - Patient Studies Lab Studies: Lab Studies 10/15/16 10/14/16 10/14/16 Range/Units 05:54 21:02 18:02 WBC 17.8 H 22.4 H (4.8-10.8) K/uL RBC 2.77 L 2.96 L (4.40-5.90) Mil/uL Hgb 8.0 L 8.6 L (12.0-18.0) g/dL Hct 25.6 L 27.2 L (35.0-51.0) % MCV 92.5 91.8 (80.0-94.0) fL MCH 29.0 29.0 (27.0-31.0) pg MCHC 31.3 L 31.6 L (33.0-37.0) g/dL RDW 18.1 H 18.4 H (11.5-14.5) % Plt Count 121 L D 186 (130-400) K/uL MPV 7.6 7.1 L (7.2-11.7) fL Neut % (Auto) 94.9 H 96.3 H (50.0-75.0) % Lymph % (Auto) 1.5 L 1.3 L (20.0-40.0) % [place] % (Auto) 3.5 2.2 (0.0-10.0) % Eos % (Auto) 0.0 0.1 (0.0-4.0) % Baso % (Auto) 0.1 0.1 (0.0-2.0) % Neut # 16.9 H 21.6 H (1.8-7.0) K/uL Lymph # 0.3 L 0.3 L (1.0-4.3) K/uL [place] # 0.6 0.5 (0.0-0.8) K/uL Eos # 0.0 0.0 (0.0-0.7) K/uL Baso # 0.0 0.0 (0.0-0.2) K/uL Neutrophils % (Manual) 90 H 87 H (50-75) % Band Neutrophils % 4 H 9 H (0-2) % Lymphocytes % (Manual) 2 L 1 L (20-40) % Monocytes % (Manual) 3 2 (0-10) % Eosinophils % (Manual) 1 (0-4) % Metamyelocytes % 1 H (0-0) % Toxic Granulation Present Platelet Estimate Slightly decreased L Normal (NORMAL) Large Platelets Polychromasia Slight Slight Hypochromasia (manual) Slight Poikilocytosis (manual Slight Basophilic Stippling Slight Anisocytosis (manual) Slight Slight Microcytosis (manual) Slight Macrocytosis (manual) Slight Target Cells Slight Ovalocytes Slight Sodium 135 135 (132-148) mmol/L Potassium 5.3 H 4.0 (3.6-5.2) mmol/L Chloride 96 L 90 L (98-107) mmol/L Carbon Dioxide 18 L 27 (22-30) mmol/L Anion Gap 26 H 23 H (10-20) BUN 68 H 50 H (9-20) mg/dL Creatinine 6.6 H 4.4 H (0.8-1.5) MG/DL Est GFR ( Amer) 10 16 Est GFR (Non-Af Amer) 8 13 POC Glucose (mg/dL) 94 (65-110) mg/dL Random Glucose 91 88 (75-110) mg/dL Calcium 8.3 L 8.1 L (8.6-10.4) mg/dl Phosphorus 6.4 H 3.6 (2.5-4.5) mg/dL Magnesium 2.1 2.1 (1.6-2.3) mg/dL Total Bilirubin 1.6 H 1.3 (0.2-1.3) mg/dL AST 153 H D 117 H (17-59) U/L ALT 33 21 (21-72) U/L Alkaline Phosphatase 301 H D 403 H D (38-126) U/L Total Protein 6.8 6.8 (6.3-8.3) g/dL Albumin 3.0 L 3.0 L (3.5-5.0) g/dL Globulin 3.8 3.8 (2.2-3.9) gm/dL Albumin/Globulin Ratio 0.8 L 0.8 L (1.0-2.1) Hep Bs Antibody (NEGATIVE) 10/14/16 10/14/16 10/14/16 Range/Units 16:11 15:41 11:35 WBC 17.5 H (4.8-10.8) K/uL RBC 2.88 L (4.40-5.90) Mil/uL Hgb 8.4 L (12.0-18.0) g/dL Hct 26.8 L (35.0-51.0) % MCV 93.0 D (80.0-94.0) fL MCH 29.1 (27.0-31.0) pg MCHC 31.3 L (33.0-37.0) g/dL RDW 17.9 H (11.5-14.5) % Plt Count 132 (130-400) K/uL MPV 7.5 (7.2-11.7) fL Neut % (Auto) 95.0 H (50.0-75.0) % Lymph % (Auto) 1.2 L (20.0-40.0) % [place] % (Auto) 3.5 (0.0-10.0) % Eos % (Auto) 0.1 (0.0-4.0) % Baso % (Auto) 0.2 (0.0-2.0) % Neut # 16.7 H (1.8-7.0) K/uL Lymph # 0.2 L (1.0-4.3) K/uL [place] # 0.6 (0.0-0.8) K/uL Eos # 0.0 (0.0-0.7) K/uL Baso # 0.0 (0.0-0.2) K/uL Neutrophils % (Manual) 92 H (50-75) % Band Neutrophils % 2 (0-2) % Lymphocytes % (Manual) 1 L (20-40) % Monocytes % (Manual) 5 (0-10) % Eosinophils % (Manual) (0-4) % Metamyelocytes % (0-0) % Toxic Granulation Platelet Estimate Normal (NORMAL) Large Platelets Present Polychromasia Hypochromasia (manual) Slight Poikilocytosis (manual Slight Basophilic Stippling Anisocytosis (manual) Slight Microcytosis (manual) Slight Macrocytosis (manual) Slight Target Cells Ovalocytes Sodium 141 (132-148) mmol/L Potassium 6.2 H* (3.6-5.2) mmol/L Chloride 98 (98-107) mmol/L Carbon Dioxide 19 L (22-30) mmol/L Anion Gap 30 H (10-20) BUN 112 H* (9-20) mg/dL Creatinine 9.4 H* (0.8-1.5) MG/DL Est GFR ( Amer) 7 Est GFR (Non-Af Amer) 5 POC Glucose (mg/dL) 124 H (65-110) mg/dL Random Glucose 136 H (75-110) mg/dL Calcium 8.5 L (8.6-10.4) mg/dl Phosphorus 7.2 H (2.5-4.5) mg/dL Magnesium 2.5 H (1.6-2.3) mg/dL Total Bilirubin 1.7 H (0.2-1.3) mg/dL AST 101 H (17-59) U/L ALT 26 (21-72) U/L Alkaline Phosphatase 326 H (38-126) U/L Total Protein 7.1 (6.3-8.3) g/dL Albumin 3.1 L (3.5-5.0) g/dL Globulin 3.9 (2.2-3.9) gm/dL Albumin/Globulin Ratio 0.8 L (1.0-2.1) Hep Bs Antibody Negative (NEGATIVE) 10/14/16 Range/Units 11:29 WBC (4.8-10.8) K/uL RBC (4.40-5.90) Mil/uL Hgb (12.0-18.0) g/dL Hct (35.0-51.0) % MCV (80.0-94.0) fL MCH (27.0-31.0) pg MCHC (33.0-37.0) g/dL RDW (11.5-14.5) % Plt Count (130-400) K/uL MPV (7.2-11.7) fL Neut % (Auto) (50.0-75.0) % Lymph % (Auto) (20.0-40.0) % [place] % (Auto) (0.0-10.0) % Eos % (Auto) (0.0-4.0) % Baso % (Auto) (0.0-2.0) % Neut # (1.8-7.0) K/uL Lymph # (1.0-4.3) K/uL [place] # (0.0-0.8) K/uL Eos # (0.0-0.7) K/uL Baso # (0.0-0.2) K/uL Neutrophils % (Manual) (50-75) % Band Neutrophils % (0-2) % Lymphocytes % (Manual) (20-40) % Monocytes % (Manual) (0-10) % Eosinophils % (Manual) (0-4) % Metamyelocytes % (0-0) % Toxic Granulation Platelet Estimate (NORMAL) Large Platelets Polychromasia Hypochromasia (manual) Poikilocytosis (manual Basophilic Stippling Anisocytosis (manual) Microcytosis (manual) Macrocytosis (manual) Target Cells Ovalocytes Sodium (132-148) mmol/L Potassium (3.6-5.2) mmol/L Chloride (98-107) mmol/L Carbon Dioxide (22-30) mmol/L Anion Gap (10-20) BUN (9-20) mg/dL Creatinine (0.8-1.5) MG/DL Est GFR ( Amer) Est GFR (Non-Af Amer) POC Glucose (mg/dL) 155 H (65-110) mg/dL Random Glucose (75-110) mg/dL Calcium (8.6-10.4) mg/dl Phosphorus (2.5-4.5) mg/dL Magnesium (1.6-2.3) mg/dL Total Bilirubin (0.2-1.3) mg/dL AST (17-59) U/L ALT (21-72) U/L Alkaline Phosphatase (38-126) U/L Total Protein (6.3-8.3) g/dL Albumin (3.5-5.0) g/dL Globulin (2.2-3.9) gm/dL Albumin/Globulin Ratio (1.0-2.1) Hep Bs Antibody (NEGATIVE) Laboratory Results - last 24 hr 10/14/16 10/14/16 10/14/16 11:29 11:35 15:41 WBC 17.5 H RBC 2.88 L Hgb 8.4 L Hct 26.8 L MCV 93.0 D MCH 29.1 MCHC 31.3 L RDW 17.9 H Plt Count 132 MPV 7.5 Neut % (Auto) 95.0 H Lymph % (Auto) 1.[address] [place] % (Auto) 3.5 Eos % (Auto) 0.1 Baso % (Auto) 0.2 Neut # 16.7 H Lymph # 0.[address] [place] # 0.6 Eos # 0.0 Baso # 0.0 Neutrophils % (Manual) 92 H Band Neutrophils % 2 Lymphocytes % (Manual) 1 L Monocytes % (Manual) 5 Eosinophils % (Manual) Metamyelocytes % Toxic Granulation Platelet Estimate Normal Large Platelets Present Polychromasia Hypochromasia (manual) Slight Poikilocytosis (manual Slight Basophilic Stippling Anisocytosis (manual) Slight Microcytosis (manual) Slight Macrocytosis (manual) Slight Target Cells Ovalocytes Sodium 141 Potassium 6.2 H* Chloride 98 Carbon Dioxide 19 L Anion Gap 30 H BUN 112 H* Creatinine 9.4 H* Est GFR ( Amer) 7 Est GFR (Non-Af Amer) 5 POC Glucose (mg/dL) 155 H Random Glucose 136 H Calcium 8.5 L Phosphorus 7.2 H Magnesium 2.5 H Total Bilirubin 1.7 H AST 101 H ALT 26 Alkaline Phosphatase 326 H Total Protein 7.1 Albumin 3.1 L Globulin 3.9 Albumin/Globulin Ratio 0.8 L Hep Bs Antibody Negative 10/14/16 10/14/16 10/14/16 16:11 18:02 21:02 WBC 22.4 H RBC 2.96 L Hgb 8.6 L Hct 27.2 L MCV 91.8 MCH 29.0 MCHC 31.6 L RDW 18.4 H Plt Count 186 MPV 7.1 L Neut % (Auto) 96.3 H Lymph % (Auto) 1.[address] [place] % (Auto) 2.2 Eos % (Auto) 0.1 Baso % (Auto) 0.1 Neut # 21.6 H Lymph # 0.[address] [place] # 0.5 Eos # 0.0 Baso # 0.0 Neutrophils % (Manual) 87 H Band Neutrophils % 9 H Lymphocytes % (Manual) 1 L Monocytes % (Manual) 2 Eosinophils % (Manual) Metamyelocytes % 1 H Toxic Granulation Platelet Estimate Normal Large Platelets Polychromasia Slight Hypochromasia (manual) Poikilocytosis (manual Basophilic Stippling Anisocytosis (manual) Slight Microcytosis (manual) Macrocytosis (manual) Target Cells Ovalocytes Sodium 135 Potassium 4.0 Chloride 90 L Carbon Dioxide 27 Anion Gap 23 H BUN 50 H Creatinine 4.4 H Est GFR ( Amer) 16 Est GFR (Non-Af Amer) 13 POC Glucose (mg/dL) 124 H 94 Random Glucose 88 Calcium 8.1 L Phosphorus 3.6 Magnesium 2.1 Total Bilirubin 1.3 AST 117 H ALT 21 Alkaline Phosphatase 403 H D Total Protein 6.8 Albumin 3.0 L Globulin 3.8 Albumin/Globulin Ratio 0.8 L Hep Bs Antibody 10/15/16 05:54 WBC 17.8 H RBC 2.77 L Hgb 8.0 L Hct 25.6 L MCV 92.5 MCH 29.0 MCHC 31.3 L RDW 18.1 H Plt Count 121 L D MPV 7.6 Neut % (Auto) 94.9 H Lymph % (Auto) 1.[address] [place] % (Auto) 3.5 Eos % (Auto) 0.0 Baso % (Auto) 0.1 Neut # 16.9 H Lymph # 0.[address] [place] # 0.6 Eos # 0.0 Baso # 0.0 Neutrophils % (Manual) 90 H Band Neutrophils % 4 H Lymphocytes % (Manual) 2 L Monocytes % (Manual) 3 Eosinophils % (Manual) 1 Metamyelocytes % Toxic Granulation Present Platelet Estimate Slightly decreased L Large Platelets Polychromasia Slight Hypochromasia (manual) Slight Poikilocytosis (manual Slight Basophilic Stippling Slight Anisocytosis (manual) Slight Microcytosis (manual) Slight Macrocytosis (manual) Slight Target Cells Slight Ovalocytes Slight Sodium 135 Potassium 5.3 H Chloride 96 L Carbon Dioxide 18 L Anion Gap 26 H BUN 68 H Creatinine 6.6 H Est GFR ( Amer) 10 Est GFR (Non-Af Amer) 8 POC Glucose (mg/dL) Random Glucose 91 Calcium 8.3 L Phosphorus 6.4 H Magnesium 2.1 Total Bilirubin 1.6 H AST 153 H D ALT 33 Alkaline Phosphatase 301 H D Total Protein 6.8 Albumin 3.0 L Globulin 3.8 Albumin/Globulin Ratio 0.8 L Hep Bs Antibody Fingerstick Blood Sugar Results: 124 Review of Systems - Review of Systems Review of Systems: see subjective Critical Care Progress Note - Nutrition Nutrition: Nutrition Category Date Time Status Renal Diet [DIET] Diets 10/15/16 Breakfast Active Assessment/Plan - Assessment and Plan (Free Text) Assessment: 76 year old male with PMHx significant for Lung Ca with bone metastasis and mediastinal mass in lower right neck, HTN, DM II,HLD, CKD, presents with increased work of breathing secondary to cancer pushing against trachea narrowing the airway. Patient had an episode of respiratory distress earlier requiring BiPAP. Patient now DNR/DNI per family's wishes and pursuing hospice options. Plan: Neuro: aaox3 in no apparent distress Cardio: Elevated troponin likely due EKG on admission: sinus Tach with nonspecific T wave changes ANDREY # 1 and [address] ANDREY [address] Cj Mcpherson consulted Anticoagulation held for recent GI bleed Pulm: Hx of SOB Pt in mild distress earlier while on NRB. Patient on BIPAP as tolerated. Switches to NRB when unable to tolerate. Pt monitored closely in the case that intubation is required CT chest done- confirming cancer findings VQ scan- low probability for PE Pneumonia with Lung cancer findings WBC inc Afebrile. Rocephin IVPB- Started 4/3 Azithromycin IVPB- Started 4/3 f/u sputum Cx Duonebs Q6H PRN DNI GI: Did not pass swallow eval Hepatitis panel f/u Elevated LFTs- Hep panel- negative Endo: ISS Accuchecks Heme: Lung Ca, Neck mass- suspected mets. F/U imaging to determine locations Dr. Maurisio rojas case Nephro: Poor Kidney function Nephro consult - Dialysis attempts per Daughter's wishes. Will dialyze No urine output Bladder scan- Not retaining Hyperkalemia- HD yesterday and then partially today. Patient's daughter would like to discontinue dialysis at this time. Potassium still mildly elevated MSK: Venous dopplers negative Check Venous dopplers UE Palliative: DNR/DNI Hospice eval now Prophylaxis: SCDs Chemical anticoagulation contraindicated due to hx of recent GI bleed on Aug 2016 admission Swallow eval will be needed <Harlan Roy - Last Filed: 10/15/16 16:06> CCU Objective - Vital Signs / Intake & Output Vital Signs (Last 4 hours): Vital Signs Pulse 10/15/16 13:19 111 H Intake and Output (Last 8hrs): Intake & Output 10/15/16 10/15/16 10/15/16 06:59 14:59 22:59 Intake Total 490 120 Output Total 0 15 Balance 490 105 Weight 111 lb 10 oz Intake: Intake, IV Amount 490 120 Right Wrist 480 120 Right Forearm 10 Oral 0 Output: Urine 0 15 Urethral (Macdonald) 0 15 Other: # Bowel Movements 0 0 - Medications Active Medications: Active Medications Generic Name Dose Route Start Last Admin Trade Name Freq PRN Reason Stop Dose Admin Albuterol/Ipratropium 3 ml 10/12/16 08:00 10/15/16 13:19 Duoneb 3 Mg/0.5 Mg (3 Ml) Ud INH 3 ml RQ6 JACKIE Administration Calcium Acetate 667 mg 10/15/16 17:00 Phoslo PO BIDCC JACKIE Docusate Sodium 100 mg 10/12/16 10:00 10/15/16 09:37 Colace PO 100 mg BID JACKIE Administration Ferric Sodium Gluconate Complex 125 mg 10/12/16 12:00 10/15/16 09:37 Ferrlecit IVPB 10/20/16 12:01 125 mg DAILY JACKIE Administration Hydromorphone HCl 0.5 mg 10/13/16 01:45 10/15/16 14:08 Dilaudid IVP 0.5 mg Q4H PRN Administration pain Ceftriaxone Sodium 1 gm/ 100 mls @ 100 mls/hr 10/12/16 03:30 10/15/16 03:34 Sodium Chloride IVPB 10/31/16 16:29 100 mls/hr Q12H JACKIE Administration Azithromycin 500 mg/ Sodium 250 mls @ 250 mls/hr 10/12/16 10:00 10/14/16 11:48 Chloride IVPB 250 mls/hr DAILY JACKIE Administration Sodium Chloride 1,000 mls @ 30 mls/hr 10/15/16 09:47 Sodium Chloride 0.45% IV .Q24H JACKIE Pantoprazole Sodium 40 mg 10/12/16 10:00 10/15/16 09:36 Protonix Inj IVP 40 mg DAILY JACKIE Administration Rosuvastatin Calcium 2.5 mg 10/12/16 22:00 10/14/16 22:02 Crestor PO Not Given HS JACKIE - Patient Studies Lab Studies: Lab Studies 10/15/16 10/15/16 10/14/16 Range/Units 10:53 05:54 21:02 WBC 17.8 H (4.8-10.8) K/uL RBC 2.77 L (4.40-5.90) Mil/uL Hgb 8.0 L (12.0-18.0) g/dL Hct 25.6 L (35.0-51.0) % MCV 92.5 (80.0-94.0) fL MCH 29.0 (27.0-31.0) pg MCHC 31.3 L (33.0-37.0) g/dL RDW 18.1 H (11.5-14.5) % Plt Count 121 L D (130-400) K/uL MPV 7.6 (7.2-11.7) fL Neut % (Auto) 94.9 H (50.0-75.0) % Lymph % (Auto) 1.5 L (20.0-40.0) % [place] % (Auto) 3.5 (0.0-10.0) % Eos % (Auto) 0.0 (0.0-4.0) % Baso % (Auto) 0.1 (0.0-2.0) % Neut # 16.9 H (1.8-7.0) K/uL Lymph # 0.3 L (1.0-4.3) K/uL [place] # 0.6 (0.0-0.8) K/uL Eos # 0.0 (0.0-0.7) K/uL Baso # 0.0 (0.0-0.2) K/uL Neutrophils % (Manual) 90 H (50-75) % Band Neutrophils % 4 H (0-2) % Lymphocytes % (Manual) 2 L (20-40) % Monocytes % (Manual) 3 (0-10) % Eosinophils % (Manual) 1 (0-4) % Metamyelocytes % (0-0) % Toxic Granulation Present Platelet Estimate Slightly decreased L (NORMAL) Polychromasia Slight Hypochromasia (manual) Slight Poikilocytosis (manual Slight Basophilic Stippling Slight Anisocytosis (manual) Slight Microcytosis (manual) Slight Macrocytosis (manual) Slight Target Cells Slight Ovalocytes Slight Sodium 135 (132-148) mmol/L Potassium 5.3 H (3.6-5.2) mmol/L Chloride 96 L (98-107) mmol/L Carbon Dioxide 18 L (22-30) mmol/L Anion Gap 26 H (10-20) BUN 68 H (9-20) mg/dL Creatinine 6.6 H (0.8-1.5) MG/DL Est GFR ( Amer) 10 Est GFR (Non-Af Amer) 8 POC Glucose (mg/dL) 94 (65-110) mg/dL Random Glucose 91 (75-110) mg/dL Calcium 8.3 L (8.6-10.4) mg/dl Phosphorus 6.4 H (2.5-4.5) mg/dL Magnesium 2.1 (1.6-2.3) mg/dL % Saturation 41 (20-55) Ferritin 3970.0 ng/mL Total Bilirubin 1.6 H (0.2-1.3) mg/dL AST 153 H D (17-59) U/L ALT 33 (21-72) U/L Alkaline Phosphatase 301 H D (38-126) U/L Total Protein 6.8 (6.3-8.3) g/dL Albumin 3.0 L (3.5-5.0) g/dL Globulin 3.8 (2.2-3.9) gm/dL Albumin/Globulin Ratio 0.8 L (1.0-2.1) Hep Bs Antibody (NEGATIVE) 10/14/16 10/14/16 10/14/16 Range/Units 18:02 16:11 15:41 WBC 22.4 H (4.8-10.8) K/uL RBC 2.96 L (4.40-5.90) Mil/uL Hgb 8.6 L (12.0-18.0) g/dL Hct 27.2 L (35.0-51.0) % MCV 91.8 (80.0-94.0) fL MCH 29.0 (27.0-31.0) pg MCHC 31.6 L (33.0-37.0) g/dL RDW 18.4 H (11.5-14.5) % Plt Count 186 (130-400) K/uL MPV 7.1 L (7.2-11.7) fL Neut % (Auto) 96.3 H (50.0-75.0) % Lymph % (Auto) 1.3 L (20.0-40.0) % [place] % (Auto) 2.2 (0.0-10.0) % Eos % (Auto) 0.1 (0.0-4.0) % Baso % (Auto) 0.1 (0.0-2.0) % Neut # 21.6 H (1.8-7.0) K/uL Lymph # 0.3 L (1.0-4.3) K/uL [place] # 0.5 (0.0-0.8) K/uL Eos # 0.0 (0.0-0.7) K/uL Baso # 0.0 (0.0-0.2) K/uL Neutrophils % (Manual) 87 H (50-75) % Band Neutrophils % 9 H (0-2) % Lymphocytes % (Manual) 1 L (20-40) % Monocytes % (Manual) 2 (0-10) % Eosinophils % (Manual) (0-4) % Metamyelocytes % 1 H (0-0) % Toxic Granulation Platelet Estimate Normal (NORMAL) Polychromasia Slight Hypochromasia (manual) Poikilocytosis (manual Basophilic Stippling Anisocytosis (manual) Slight Microcytosis (manual) Macrocytosis (manual) Target Cells Ovalocytes Sodium 135 (132-148) mmol/L Potassium 4.0 (3.6-5.2) mmol/L Chloride 90 L (98-107) mmol/L Carbon Dioxide 27 (22-30) mmol/L Anion Gap 23 H (10-20) BUN 50 H (9-20) mg/dL Creatinine 4.4 H (0.8-1.5) MG/DL Est GFR ( Amer) 16 Est GFR (Non-Af Amer) 13 POC Glucose (mg/dL) 124 H (65-110) mg/dL Random Glucose 88 (75-110) mg/dL Calcium 8.1 L (8.6-10.4) mg/dl Phosphorus 3.6 (2.5-4.5) mg/dL Magnesium 2.1 (1.6-2.3) mg/dL % Saturation (20-55) Ferritin ng/mL Total Bilirubin 1.3 (0.2-1.3) mg/dL AST 117 H (17-59) U/L ALT 21 (21-72) U/L Alkaline Phosphatase 403 H D (38-126) U/L Total Protein 6.8 (6.3-8.3) g/dL Albumin 3.0 L (3.5-5.0) g/dL Globulin 3.8 (2.2-3.9) gm/dL Albumin/Globulin Ratio 0.8 L (1.0-2.1) Hep Bs Antibody Negative (NEGATIVE) Laboratory Results - last 24 hr 10/14/16 10/14/16 10/14/16 15:41 16:11 18:02 WBC 22.4 H RBC 2.96 L Hgb 8.6 L Hct 27.2 L MCV 91.8 MCH 29.0 MCHC 31.6 L RDW 18.4 H Plt Count 186 MPV 7.1 L Neut % (Auto) 96.3 H Lymph % (Auto) 1.[address] [place] % (Auto) 2.2 Eos % (Auto) 0.1 Baso % (Auto) 0.1 Neut # 21.6 H Lymph # 0.[address] [place] # 0.5 Eos # 0.0 Baso # 0.0 Neutrophils % (Manual) 87 H Band Neutrophils % 9 H Lymphocytes % (Manual) 1 L Monocytes % (Manual) 2 Eosinophils % (Manual) Metamyelocytes % 1 H Toxic Granulation Platelet Estimate Normal Polychromasia Slight Hypochromasia (manual) Poikilocytosis (manual Basophilic Stippling Anisocytosis (manual) Slight Microcytosis (manual) Macrocytosis (manual) Target Cells Ovalocytes Sodium 135 Potassium 4.0 Chloride 90 L Carbon Dioxide 27 Anion Gap 23 H BUN 50 H Creatinine 4.4 H Est GFR ( Amer) 16 Est GFR (Non-Af Amer) 13 POC Glucose (mg/dL) 124 H Random Glucose 88 Calcium 8.1 L Phosphorus 3.6 Magnesium 2.1 % Saturation Ferritin Total Bilirubin 1.3 AST 117 H ALT 21 Alkaline Phosphatase 403 H D Total Protein 6.8 Albumin 3.0 L Globulin 3.8 Albumin/Globulin Ratio 0.8 L Hep Bs Antibody Negative 10/14/16 10/15/16 10/15/16 21:02 05:54 10:53 WBC 17.8 H RBC 2.77 L Hgb 8.0 L Hct 25.6 L MCV 92.5 MCH 29.0 MCHC 31.3 L RDW 18.1 H Plt Count 121 L D MPV 7.6 Neut % (Auto) 94.9 H Lymph % (Auto) 1.[address] [place] % (Auto) 3.5 Eos % (Auto) 0.0 Baso % (Auto) 0.1 Neut # 16.9 H Lymph # 0.[address] [place] # 0.6 Eos # 0.0 Baso # 0.0 Neutrophils % (Manual) 90 H Band Neutrophils % 4 H Lymphocytes % (Manual) 2 L Monocytes % (Manual) 3 Eosinophils % (Manual) 1 Metamyelocytes % Toxic Granulation Present Platelet Estimate Slightly decreased L Polychromasia Slight Hypochromasia (manual) Slight Poikilocytosis (manual Slight Basophilic Stippling Slight Anisocytosis (manual) Slight Microcytosis (manual) Slight Macrocytosis (manual) Slight Target Cells Slight Ovalocytes Slight Sodium 135 Potassium 5.3 H Chloride 96 L Carbon Dioxide 18 L Anion Gap 26 H BUN 68 H Creatinine 6.6 H Est GFR ( Amer) 10 Est GFR (Non-Af Amer) 8 POC Glucose (mg/dL) 94 Random Glucose 91 Calcium 8.3 L Phosphorus 6.4 H Magnesium 2.1 % Saturation 41 Ferritin 3970.0 Total Bilirubin 1.6 H AST 153 H D ALT 33 Alkaline Phosphatase 301 H D Total Protein 6.8 Albumin 3.0 L Globulin 3.8 Albumin/Globulin Ratio 0.8 L Hep Bs Antibody Critical Care Progress Note - Nutrition Nutrition: Nutrition Category Date Time Status Renal Diet [DIET] Diets 10/15/16 Breakfast Active Attending/Attestation - Attestation I have personally seen and examined this patient.: Yes I have fully participated in the care of the patient.: Yes I have reviewed all pertinent clinical information: Yes Notes (Text): 10/15/16 16:04 I have seen and examined the patient. Medical records, lab studies, and imaging were reviewed by me and a management plan was formulated on multidisciplinary rounds with resident Dr. Caceres. I agree with their above documented assessment and plan. After talking to the patient's daughter again, she has decided to focus on hospice care for the patient. Stopping dialysis. DNR/DNI. Hospice reconsulted. Continue BIPAP for comfort. Patient can be downgraded to the floor. Critical Care Time 60 minutes. Multi-disciplinary rounds were performed with house staff, nursing, speech therapy, respiratory therapy, pharmacy and nutrition with integrated input from the primary team/attending and other consulting services. The documented time is cumulative and includes review of patient data/exams/labs/chart review and examination of the patient on rounds and throughout the day; time is exclusive of any procedures or teaching time.
[2016-10-15] MEDS: Azithromycin 500 MG in Sodium Chloride 0.9% 250 ML IVPB SCH (12:10)
--- NOTE | 2016-10-15 14:48 | CP.PCM.PN ---
Subjective - Date & Time of Evaluation Date of Evaluation: 10/15/16 Time of Evaluation: 14:00 - Subjective Subjective: Brief note: Patient's family member present at bedside, she explained that she did not want to talk right now and asked me to leave. I spoke with ICU staff and the patient's family wants hospice care at this time. Overnight there was some attempt to try hemo-dialysis, however after further discussion family decided on stopping HD and do hospice. Objective - Vital Signs/Intake and Output Vital Signs (last 24 hours): Temp Pulse Resp BP Pulse Ox 97.4 F L 111 H 19 137/63 95 10/15/16 10:15 10/15/16 13:19 10/15/16 10:00 10/15/16 10:40 10/15/16 10:15 Intake and Output: 10/15/16 10/15/16 06:59 18:59 Intake Total 790 120 Output Total 10 15 Balance 780 105 - Medications Medications: Current Medications Albuterol/Ipratropium (Duoneb 3 Mg/0.5 Mg (3 Ml) Ud) 3 ml INH RQ6 [facility] Last Admin: 10/15/16 13:19 Dose: 3 ml Calcium Acetate (Phoslo) 667 mg PO BIDCC [facility] Docusate Sodium (Colace) 100 mg PO BID [facility] Last Admin: 10/15/16 09:37 Dose: 100 mg Ferric Sodium Gluconate Complex (Ferrlecit) 125 mg IVPB DAILY [facility] Stop: 10/20/16 12:01 Last Admin: 10/15/16 09:37 Dose: 125 mg Hydromorphone HCl (Dilaudid) 0.5 mg IVP Q4H PRN PRN Reason: pain Last Admin: 10/15/16 14:08 Dose: 0.5 mg Ceftriaxone Sodium 1 gm/ (Sodium Chloride) 100 mls @ 100 mls/hr IVPB Q12H JACKIE Stop: 10/31/16 16:29 Last Admin: 10/15/16 03:34 Dose: 100 mls/hr Azithromycin 500 mg/ Sodium (Chloride) 250 mls @ 250 mls/hr IVPB DAILY [facility] Last Admin: 10/14/16 11:48 Dose: 250 mls/hr Sodium Chloride (Sodium Chloride 0.45%) 1,000 mls @ 30 mls/hr IV .Q24H [facility] Pantoprazole Sodium (Protonix Inj) 40 mg IVP DAILY [facility] Last Admin: 10/15/16 09:36 Dose: 40 mg Rosuvastatin Calcium (Crestor) 2.5 mg PO HS [facility] Last Admin: 10/14/16 22:02 Dose: Not Given - Labs Labs: 10/15/16 05:54 10/15/16 05:54
--- NOTE | 2016-10-15 15:17 | US ---
PROCEDURE: Ultrasound of the Kidneys HISTORY: evaluate hydro seen on recent US, not seen on CT COMPARISON: Renal ultrasound performed 10/12/16, CT chest, abdomen, and pelvis performed 10/12/16 TECHNIQUE: Sonogram of the kidneys. FINDINGS: RIGHT KIDNEY: Measures: 8.9 x 5.6 x 5.4 cm. Echogenic renal parenchyma. Small upper pole renal cyst. Mild to moderate hydronephrosis. No obstructing calculus identified. LEFT KIDNEY: Measures: 8.4 x 4.5 x 5.0 cm. Echogenic renal parenchyma. Small renal cysts re-identified. Mild to moderate hydronephrosis. No obstructing calculus identified. OTHER FINDINGS: Macdonald catheter within a decompressed urinary bladder which precludes adequate evaluation. IMPRESSION: [id number] bilateral hydronephrosis. Bilateral renal cysts. Echogenic renal parenchyma may be seen in the setting of medical renal disease.
--- NOTE | 2016-10-15 18:34 | CP.PCM.DIS ---
<Nicki Connors - Last Filed: 10/16/16 18:39> Provider - Provider Date of Admission: 10/12/16 00:04 Attending physician: MD Dr. Bryon Fountain Consults: Critical Care (Dr. Dockery, V[place] Dorantes, Alyssia Roy) HemeOnc( Dr. Forde) Nephrology ( Samanta Ambriz) Cardiology ( Dr. Cj Mcpherson) Palliative Care ( Elba Ryan NP) Time Spent in preparation of Discharge (in minutes): 35 Diagnosis - Discharge Diagnosis (1) Acute respiratory failure with hypoxia and hypercapnia Status: Acute (2) Lung cancer Status: Acute (3) Leukocytosis Status: Acute (4) Renal insufficiency Status: Acute (5) Pneumonia Status: Acute Hospital Course - Lab Results Lab Results: Micro Results 10/12/16 11:40 Naris MRSA Culture (Admit) - Final MRSA NOT DETECTED Most Recent Lab Values WBC 17.8 K/uL (4.8-10.8) H 10/15/16 05:54 RBC 2.77 Mil/uL (4.40-5.90) L 10/15/16 05:54 Hgb 8.0 g/dL (12.0-18.0) L 10/15/16 05:54 Hct 25.6 % (35.0-51.0) L 10/15/16 05:54 MCV 92.5 fL (80.0-94.0) 10/15/16 05:54 MCH 29.0 pg (27.0-31.0) 10/15/16 05:54 MCHC 31.3 g/dL (33.0-37.0) L 10/15/16 05:54 RDW 18.1 % (11.5-14.5) H 10/15/16 05:54 Plt Count 121 K/uL (130-400) L D 10/15/16 05:54 MPV 7.6 fL (7.2-11.7) 10/15/16 05:54 Neut % (Auto) 94.9 % (50.0-75.0) H 10/15/16 05:54 Lymph % (Auto) 1.5 % (20.0-40.0) L 10/15/16 05:54 [place] % (Auto) 3.5 % (0.0-10.0) 10/15/16 05:54 Eos % (Auto) 0.0 % (0.0-4.0) 10/15/16 05:54 Baso % (Auto) 0.1 % (0.0-2.0) 10/15/16 05:54 Neut # 16.9 K/uL (1.8-7.0) H 10/15/16 05:54 Lymph # 0.3 K/uL (1.0-4.3) L 10/15/16 05:54 [place] # 0.6 K/uL (0.0-0.8) 10/15/16 05:54 Eos # 0.0 K/uL (0.0-0.7) 10/15/16 05:54 Baso # 0.0 K/uL (0.0-0.2) 10/15/16 05:54 Neutrophils % (Manual) 90 % (50-75) H 10/15/16 05:54 Band Neutrophils % 4 % (0-2) H 10/15/16 05:54 Lymphocytes % (Manual) 2 % (20-40) L 10/15/16 05:54 Monocytes % (Manual) 3 % (0-10) 10/15/16 05:54 Eosinophils % (Manual) 1 % (0-4) 10/15/16 05:54 Metamyelocytes % 1 % (0-0) H 10/14/16 18:02 Nucleated RBC % 2 % (0-0) H 10/13/16 08:14 Toxic Granulation Present 10/15/16 05:54 Platelet Estimate Slightly decreased (NORMAL) L 10/15/16 05:54 Large Platelets Present 10/14/16 11:35 Polychromasia Slight 10/15/16 05:54 Hypochromasia (manual) Slight 10/15/16 05:54 Poikilocytosis (manual Slight 10/15/16 05:54 Basophilic Stippling Slight 10/15/16 05:54 Anisocytosis (manual) Slight 10/15/16 05:54 Microcytosis (manual) Slight 10/15/16 05:54 Macrocytosis (manual) Slight 10/15/16 05:54 Target Cells Slight 10/15/16 05:54 Ovalocytes Slight 10/15/16 05:54 Puncture Site Rrad 10/12/16 00:09 pCO2 41 mm/Hg (35-45) 10/12/16 00:09 pO2 88 mm/Hg (80-100) 10/12/16 00:09 HCO3 18.4 mmol/L (21-28) L 10/12/16 00:09 ABG pH 7.26 (7.35-7.45) L 10/12/16 00:09 ABG Total CO2 19.7 mmol/L (22-28) L 10/12/16 00:09 ABG O2 Saturation 97.6 % (95-98) 10/12/16 00:09 ABG Base Excess -8.3 mmol/L (-2.0-3.0) L 10/12/16 00:09 ABG Hemoglobin 15.8 g/dL (11.7-17.4) 10/12/16 00:09 ABG Carboxyhemoglobin 1.7 % (0.5-1.5) H 10/12/16 00:09 POC ABG HHb (Measured) 2.3 % (0.0-5.0) 10/12/16 00:09 ABG Methemoglobin 0.8 % (0.0-3.0) 10/12/16 00:09 Wayne Test Pos 10/12/16 00:09 VBG pH 7.31 (7.32-7.43) L 10/12/16 00:09 VBG pCO2 39 mmHg (40-60) L 10/12/16 00:09 VBG HCO3 19.9 mmol/L 10/12/16 00:09 VBG Total CO2 20.8 mmol/L (22-28) L 10/12/16 00:09 VBG O2 Sat (Calc) 96.0 % (40-65) H 10/12/16 00:09 VBG Base Excess -6.2 mmol/L (0.0-2.0) L 10/12/16 00:09 VBG Potassium 6.4 mmol/L (3.6-5.2) H* 10/12/16 00:09 Hgb O2 Saturation 95.2 % (95.0-98.0) 10/12/16 00:09 Sodium 138.0 mmol/l (132-148) 10/12/16 00:09 Chloride 103.0 mmol/L (98-107) 10/12/16 00:09 Glucose 137 mg/dl (75-110) H 10/12/16 00:09 Lactate 2.4 mmol/L (0.7-2.1) H 10/12/16 00:09 Liter Flow 10.0 10/12/16 00:09 Crit Value Called To Dr del rio 10/12/16 00:09 Crit Value Called By Bruce prater nursing assistants teacher 10/12/16 00:09 Crit Value Read Back N 10/12/16 00:09 Blood Gas Notified Time 16 10/12/16 00:09 Sodium 135 mmol/L (132-148) 10/15/16 05:54 Potassium 5.3 mmol/L (3.6-5.2) H 10/15/16 05:54 Chloride 96 mmol/L (98-107) L 10/15/16 05:54 Carbon Dioxide 18 mmol/L (22-30) L 10/15/16 05:54 Anion Gap 26 (10-20) H 10/15/16 05:54 BUN 68 mg/dL (9-20) H 10/15/16 05:54 Creatinine 6.6 MG/DL (0.8-1.5) H 10/15/16 05:54 Est GFR ( Amer) 10 10/15/16 05:54 Est GFR (Non-Af Amer) 8 10/15/16 05:54 POC Glucose (mg/dL) 94 mg/dL (65-110) 10/14/16 21:02 Random Glucose 91 mg/dL (75-110) 10/15/16 05:54 Lactic Acid 1.7 mmol/L (0.7-2.1) 10/12/16 06:14 Calcium 8.3 mg/dl (8.6-10.4) L 10/15/16 05:54 Phosphorus 6.4 mg/dL (2.5-4.5) H 10/15/16 05:54 Magnesium 2.1 mg/dL (1.6-2.3) 10/15/16 05:54 % Saturation 41 (20-55) 10/15/16 10:53 Ferritin 3970.0 ng/mL 10/15/16 10:53 Total Bilirubin 1.6 mg/dL (0.2-1.3) H 10/15/16 05:54 AST 153 U/L (17-59) H D 10/15/16 05:54 ALT 33 U/L (21-72) 10/15/16 05:54 Alkaline Phosphatase 301 U/L (38-126) H D 10/15/16 05:54 Total Creatine Kinase 72 U/L (55-170) 10/12/16 20:42 CK-MB (Mass) 4.36 ng/mL (0.0-3.38) H 10/12/16 20:42 Troponin I, Quant 0.1120 ng/mL (0.00-0.120) 10/12/16 20:42 Total Protein 6.8 g/dL (6.3-8.3) 10/15/16 05:54 Albumin 3.0 g/dL (3.5-5.0) L 10/15/16 05:54 Globulin 3.8 gm/dL (2.2-3.9) 10/15/16 05:54 Albumin/Globulin Ratio 0.8 (1.0-2.1) L 10/15/16 05:54 Venous Blood Potassium 6.4 mmol/L (3.6-5.2) H* 10/12/16 00:09 Hepatitis A IgM Ab Negative (NEGATIVE) 10/12/16 05:38 Hep Bs Antigen Negative (NEGATIVE) 10/12/16 05:38 Hep Bs Antibody Negative (NEGATIVE) 10/14/16 15:41 Hep B Core IgM Ab Negative (NEGATIVE) 10/12/16 05:38 Hepatitis C Antibody Negative (NEGATIVE) 10/12/16 05:38 Influenza Typ A,B (EIA) Negative for flu a/b (NEGATIVE) 10/12/16 04:45 - Hospital Course Hospital Course: On Admission: CC: "SOB and fatigue" 76 year old male with PMHx of lung cancer with bone mets, DM, CKD presents to the ED with daughter for shortness of breath, malaise and decreased PO intake for 4 days. Patient is asleep, difficult to arouse from sleep and cannot answer ROS at this time. History as per daughter at bedside. Daughter has noticed patient has been intermittently SOB for the past 4 days. He has been eating very little and she has been feeding him Ensure supplement intermittently. No fevers or chills reported but admits to light dry cough. Patient's cough was reportedly worse 2 weeks ago and was given unknown "medicine " by Dr. Forde, which made it better. Daughter also reports patient has been having some episodes of confusion for the past 4 days and has been calling his parents who are long ago . His last chemotherapy was 2 weeks ago. No chest pain, fevers, chills, nausea, vomiting, diarrhea, constipation, hemoptysis , recent falls. No sick contacts or recent travel. Patient was recently admitted in August of 2016 for GI bleed. Duodenal ulcers treated during EGD on 09/02 with bipolar cautery and epinephrine. Patient was also intubated during same admission. Hospital Course: Pt admitted to hospitalist service; however began having increased work of breathing requiring BiPAP. With concerns for possible respiratory distress, patient observed but then transferred to ICU for close monitoring. CTA images were reviewed with signs of neck mass pushing against trachea, nearly collapsing it. Plans for further management of care were discussed with daughter. Daughter initially needed time to decide and finally DNR/DNI code status initiated. Daughter initially wanted hospice measures but then felt convinced to do more for father's care. Patient's daughter had conversation with Nephrology to which patient began dialysis. Daughter had long discussion with beater tender regarding risks versus benefits of dialysis particularly regarding the poor cancer prognosis. Patient to continue with dialysis with considerations for dependency on BiPAP and lung cancer metastasis. Patient's daughter then decided upon comfort care hospice measures. Hospice post adoption coordinator came to discuss suggested medical agents to aid with palliative efforts. This is a brief summary of events. Please refer to medical record. Discharge Exam - Head Exam Head Exam: ATRAUMATIC, NORMAL INSPECTION - Eye Exam Eye Exam: EOMI, Normal appearance, PERRL Pupil Exam: NORMAL ACCOMODATION - ENT Exam ENT Exam: Mucous Membranes Dry - Respiratory Exam Respiratory Exam: Stridor. absent: Wheezes - Cardiovascular Exam Cardiovascular Exam: +S1, +S2 - GI/Abdominal Exam GI & Abdominal Exam: Normal Bowel Sounds - Extremities Exam Extremities exam: full ROM - Neurological Exam Neurological exam: Altered - Psychiatric Exam Psychiatric exam: Flat Affect - Skin Skin Exam: Dry, Warm Discharge Plan - Follow Up Plan Condition: STABLE Disposition: HOSPICE - MEDICAL FACILITY <Bryon Bright - Last Filed: 10/17/16 08:13> Provider - Provider Date of Admission: 10/12/16 00:04 Attending physician: Dat Jefferson MD Hospital Course - Lab Results Lab Results: Micro Results 10/12/16 11:40 Naris MRSA Culture (Admit) - Final MRSA NOT DETECTED Most Recent Lab Values WBC 17.8 K/uL (4.8-10.8) H 10/15/16 05:54 RBC 2.77 Mil/uL (4.40-5.90) L 10/15/16 05:54 Hgb 8.0 g/dL (12.0-18.0) L 10/15/16 05:54 Hct 25.6 % (35.0-51.0) L 10/15/16 05:54 MCV 92.5 fL (80.0-94.0) 10/15/16 05:54 MCH 29.0 pg (27.0-31.0) 10/15/16 05:54 MCHC 31.3 g/dL (33.0-37.0) L 10/15/16 05:54 RDW 18.1 % (11.5-14.5) H 10/15/16 05:54 Plt Count 121 K/uL (130-400) L D 10/15/16 05:54 MPV 7.6 fL (7.2-11.7) 10/15/16 05:54 Neut % (Auto) 94.9 % (50.0-75.0) H 10/15/16 05:54 Lymph % (Auto) 1.5 % (20.0-40.0) L 10/15/16 05:54 [place] % (Auto) 3.5 % (0.0-10.0) 10/15/16 05:54 Eos % (Auto) 0.0 % (0.0-4.0) 10/15/16 05:54 Baso % (Auto) 0.1 % (0.0-2.0) 10/15/16 05:54 Neut # 16.9 K/uL (1.8-7.0) H 10/15/16 05:54 Lymph # 0.3 K/uL (1.0-4.3) L 10/15/16 05:54 [place] # 0.6 K/uL (0.0-0.8) 10/15/16 05:54 Eos # 0.0 K/uL (0.0-0.7) 10/15/16 05:54 Baso # 0.0 K/uL (0.0-0.2) 10/15/16 05:54 Neutrophils % (Manual) 90 % (50-75) H 10/15/16 05:54 Band Neutrophils % 4 % (0-2) H 10/15/16 05:54 Lymphocytes % (Manual) 2 % (20-40) L 10/15/16 05:54 Monocytes % (Manual) 3 % (0-10) 10/15/16 05:54 Eosinophils % (Manual) 1 % (0-4) 10/15/16 05:54 Metamyelocytes % 1 % (0-0) H 10/14/16 18:02 Nucleated RBC % 2 % (0-0) H 10/13/16 08:14 Toxic Granulation Present 10/15/16 05:54 Platelet Estimate Slightly decreased (NORMAL) L 10/15/16 05:54 Large Platelets Present 10/14/16 11:35 Polychromasia Slight 10/15/16 05:54 Hypochromasia (manual) Slight 10/15/16 05:54 Poikilocytosis (manual Slight 10/15/16 05:54 Basophilic Stippling Slight 10/15/16 05:54 Anisocytosis (manual) Slight 10/15/16 05:54 Microcytosis (manual) Slight 10/15/16 05:54 Macrocytosis (manual) Slight 10/15/16 05:54 Target Cells Slight 10/15/16 05:54 Ovalocytes Slight 10/15/16 05:54 Puncture Site Rrad 10/12/16 00:09 pCO2 41 mm/Hg (35-45) 10/12/16 00:09 pO2 88 mm/Hg (80-100) 10/12/16 00:09 HCO3 18.4 mmol/L (21-28) L 10/12/16 00:09 ABG pH 7.26 (7.35-7.45) L 10/12/16 00:09 ABG Total CO2 19.7 mmol/L (22-28) L 10/12/16 00:09 ABG O2 Saturation 97.6 % (95-98) 10/12/16 00:09 ABG Base Excess -8.3 mmol/L (-2.0-3.0) L 10/12/16 00:09 ABG Hemoglobin 15.8 g/dL (11.7-17.4) 10/12/16 00:09 ABG Carboxyhemoglobin 1.7 % (0.5-1.5) H 10/12/16 00:09 POC ABG HHb (Measured) 2.3 % (0.0-5.0) 10/12/16 00:09 ABG Methemoglobin 0.8 % (0.0-3.0) 10/12/16 00:09 Wayne Test Pos 10/12/16 00:09 VBG pH 7.31 (7.32-7.43) L 10/12/16 00:09 VBG pCO2 39 mmHg (40-60) L 10/12/16 00:09 VBG HCO3 19.9 mmol/L 10/12/16 00:09 VBG Total CO2 20.8 mmol/L (22-28) L 10/12/16 00:09 VBG O2 Sat (Calc) 96.0 % (40-65) H 10/12/16 00:09 VBG Base Excess -6.2 mmol/L (0.0-2.0) L 10/12/16 00:09 VBG Potassium 6.4 mmol/L (3.6-5.2) H* 10/12/16 00:09 Hgb O2 Saturation 95.2 % (95.0-98.0) 10/12/16 00:09 Sodium 138.0 mmol/l (132-148) 10/12/16 00:09 Chloride 103.0 mmol/L (98-107) 10/12/16 00:09 Glucose 137 mg/dl (75-110) H 10/12/16 00:09 Lactate 2.4 mmol/L (0.7-2.1) H 10/12/16 00:09 Liter Flow 10.0 10/12/16 00:09 Crit Value Called To Dr del rio 10/12/16 00:09 Crit Value Called By Bruce prater rrt 10/12/16 00:09 Crit Value Read Back N 10/12/16 00:09 Blood Gas Notified Time 16 10/12/16 00:09 Sodium 135 mmol/L (132-148) 10/15/16 05:54 Potassium 5.3 mmol/L (3.6-5.2) H 10/15/16 05:54 Chloride 96 mmol/L (98-107) L 10/15/16 05:54 Carbon Dioxide 18 mmol/L (22-30) L 10/15/16 05:54 Anion Gap 26 (10-20) H 10/15/16 05:54 BUN 68 mg/dL (9-20) H 10/15/16 05:54 Creatinine 6.6 MG/DL (0.8-1.5) H 10/15/16 05:54 Est GFR ( Amer) 10 10/15/16 05:54 Est GFR (Non-Af Amer) 8 10/15/16 05:54 POC Glucose (mg/dL) 94 mg/dL (65-110) 10/14/16 21:02 Random Glucose 91 mg/dL (75-110) 10/15/16 05:54 Lactic Acid 1.7 mmol/L (0.7-2.1) 10/12/16 06:14 Calcium 8.3 mg/dl (8.6-10.4) L 10/15/16 05:54 Phosphorus 6.4 mg/dL (2.5-4.5) H 10/15/16 05:54 Magnesium 2.1 mg/dL (1.6-2.3) 10/15/16 05:54 % Saturation 41 (20-55) 10/15/16 10:53 Ferritin 3970.0 ng/mL 10/15/16 10:53 Total Bilirubin 1.6 mg/dL (0.2-1.3) H 10/15/16 05:54 AST 153 U/L (17-59) H D 10/15/16 05:54 ALT 33 U/L (21-72) 10/15/16 05:54 Alkaline Phosphatase 301 U/L (38-126) H D 10/15/16 05:54 Total Creatine Kinase 72 U/L (55-170) 10/12/16 20:42 CK-MB (Mass) 4.36 ng/mL (0.0-3.38) H 10/12/16 20:42 Troponin I, Quant 0.1120 ng/mL (0.00-0.120) 10/12/16 20:42 Total Protein 6.8 g/dL (6.3-8.3) 10/15/16 05:54 Albumin 3.0 g/dL (3.5-5.0) L 10/15/16 05:54 Globulin 3.8 gm/dL (2.2-3.9) 10/15/16 05:54 Albumin/Globulin Ratio 0.8 (1.0-2.1) L 10/15/16 05:54 Venous Blood Potassium 6.4 mmol/L (3.6-5.2) H* 10/12/16 00:09 Hepatitis A IgM Ab Negative (NEGATIVE) 10/12/16 05:38 Hep Bs Antigen Negative (NEGATIVE) 10/12/16 05:38 Hep Bs Antibody Negative (NEGATIVE) 10/14/16 15:41 Hep B Core IgM Ab Negative (NEGATIVE) 10/12/16 05:38 Hepatitis C Antibody Negative (NEGATIVE) 10/12/16 05:38 Influenza Typ A,B (EIA) Negative for flu a/b (NEGATIVE) 10/12/16 04:45 Attending/Attestation - Attestation I have personally seen and examined this patient.: Yes I have fully participated in the care of the patient.: Yes I have reviewed all pertinent clinical information, including history, physical exam and plan: Yes Notes (Text): Please note patient is now . As mentioned previously patient is well known to us during this hospitalization and previous hospitalization due to complications with lung cancer. He's been through a lot and family and became anuric, with discussion with family the patient was made DNR/DNI and then hospice care. He was discharged from the ICU level hospital care and moved to hospice care within the hospital. Bryon Bright
[2016-10-15] MEDS ORDERED: Scopolamine 1.5 mg/24 hr Patch TD SCH (19:30)
[2016-10-15] MEDS ORDERED: MORPHINE SULFATE IV ONE (21:21)
[2016-10-15] MEDS ORDERED: WATER IV ONE (21:21)
[2016-10-15] MEDS ORDERED: DEXTROSE 5% IV ONE (21:21)
--- NOTE | 2016-10-16 08:00 | CP.PCM.HP ---
<Nicki Connors - Last Filed: 10/16/16 19:00> History of Present Illness - History of Present Illness History of Present Illness: CC: "SOB and fatigue" 76 year old male with PMHx of lung cancer with bone mets, DM, CKD presents to the ED with daughter for shortness of breath, malaise and decreased PO intake for 4 days. Patient is asleep, difficult to arouse from sleep and cannot answer ROS at this time. History as per daughter at bedside. Daughter has noticed patient has been intermittently SOB for the past 4 days. He has been eating very little and she has been feeding him Ensure supplement intermittently. No fevers or chills reported but admits to light dry cough. Patient's cough was reportedly worse 2 weeks ago and was given unknown "medicine " by Dr. Forde, which made it better. Daughter also reports patient has been having some episodes of confusion for the past 4 days and has been calling his parents who are long ago . His last chemotherapy was 2 weeks ago. No chest pain, fevers, chills, nausea, vomiting, diarrhea, constipation, hemoptysis , recent falls. No sick contacts or recent travel. Patient was recently admitted in August of 2016 for GI bleed. Duodenal ulcers treated during EGD on 09/02 with bipolar cautery and epinephrine. Patient was also intubated during same admission. As stated in discharge summary: Pt admitted to hospitalist service; however began having increased work of breathing requiring BiPAP. With concerns for possible respiratory distress, patient observed but then transferred to ICU for close monitoring. CTA images were reviewed with signs of neck mass pushing against trachea, nearly collapsing it. Plans for further management of care were discussed with daughter. Daughter initially needed time to decide and finally DNR/DNI code status initiated. Daughter initially wanted hospice measures but then felt convinced to do more for father's care. Patient's daughter had conversation with Nephrology to which patient began dialysis. Daughter had long discussion with repair specialist regarding risks versus benefits of dialysis particularly regarding the poor cancer prognosis. Patient to continue with dialysis with considerations for dependency on BiPAP and lung cancer metastasis. Patient's daughter then decided upon comfort care hospice measures. Hospice international coordinator came to discuss suggested medical agents to aid with palliative efforts. PMHx: DMII, HTN, HLD, CKD, Lung CA with bone mets, mediastinal mass in lower right neck, COPD, GI bleed from duodenal ulcers (08/2016). Surg Hx: endovascular stent abdominal aneurysm repair (16 years ago), right incarcerated hernia, lung biopsy. Fam Hx: denies Social Hx: lives alone in apartment with daughters in same building, not- , former smoker, quit 16 years ago, denies drugs, denies alcohol. Ambulates. PMD: Dr. Kaleigh Ocampo Heme/Onc: Dr. Forde Present on Admission - Present on Admission Any Indicators Present on Admission: No Review of Systems - Constitutional Constitutional: Lethargy, Malaise - Cardiovascular Cardiovascular: Dyspnea - Respiratory Respiratory: Dyspnea, Stridor, Chest Congestion - Gastrointestinal Gastrointestinal: absent: Nausea Additional comments: anorexia - Genitourinary Genitourinary: Other (anuria) - Musculoskeletal Musculoskeletal: Arthralgias - Integumentary Integumentary: Dry Skin Past Patient History - Infectious Disease Hx of Infectious Diseases: None - Past Medical History & Family History Past Medical History?: Yes - Past Social History Smoking Status: Former Smoker - CARDIAC Hx Hypercholesterolemia: Yes Hx Hypertension: Yes (no longer) - PULMONARY Hx Chronic Obstructive Pulmonary Disease (COPD): Yes Hx Emphysema: Yes - NEUROLOGICAL Hx Neurological Disorder: No - HEENT Hx HEENT Problems: Yes Hx Cataracts: Yes - RENAL Hx Chronic Kidney Disease: (renal insufficiency) - ENDOCRINE/METABOLIC Hx Endocrine Disorders: Yes Hx Diabetes Mellitus Type 2: Yes - HEMATOLOGICAL/ONCOLOGICAL Hx Anemia: Yes - INTEGUMENTARY Hx Dermatological Problems: Yes (enlarged lymph node left neck) - MUSCULOSKELETAL/RHEUMATOLOGICAL Hx Arthritis: Yes Hx Fractures: Yes (ribs) - GASTROINTESTINAL Hx Gastrointestinal Disorders: No - GENITOURINARY/GYNECOLOGICAL Hx Genitourinary Disorders: No - PSYCHIATRIC Hx Substance Use: No - SURGICAL HISTORY Hx Surgeries: Yes Hx Abdominal Aortic Aneurysm Repair: Yes Hx Herniorrhaphy: Yes (right ing hernia repair) Hx Vascular Surgery: Yes (aneurysm with stents) - ANESTHESIA Hx Anesthesia: Yes Hx Anesthesia Reactions: No Hx Malignant Hyperthermia: No Meds Allergies/Adverse Reactions: Allergies Allergy/AdvReac Type Severity Reaction Status Date / Time No Known Allergies Allergy Verified 08/21/16 18:25 Physical Exam - Constitutional Appears: No Acute Distress - Head Exam Head Exam: ATRAUMATIC, NORMAL INSPECTION, NORMOCEPHALIC - Eye Exam Eye Exam: Normal appearance Pupil Exam: NORMAL ACCOMODATION - ENT Exam ENT Exam: Mucous Membranes Moist - Neck Exam Neck exam: Positive for: Full Rom - Respiratory Exam Respiratory Exam: Decreased Breath Sounds, Respiratory Distress (intermittent at times). absent: Wheezes, NORMAL BREATHING PATTERN - Cardiovascular Exam Cardiovascular Exam: +S1, +S2 - GI/Abdominal Exam GI & Abdominal Exam: Normal Bowel Sounds, Soft - Extremities Exam Extremities exam: Positive for: normal inspection Additional comments: right groin cathether insertion site c/d/i; no hematoma noted - Back Exam Back exam: FULL ROM - Neurological Exam Neurological exam: Altered - Psychiatric Exam Psychiatric exam: Flat Affect - Skin Skin Exam: Normal Color, Warm Results - Vital Signs Recent Vital Signs: Last Vital Signs Temp 97.5 F L 10/15/16 19:26 Pulse 112 H 10/15/16 21:00 Resp 26 H 10/15/16 21:00 BP 140/58 L 10/15/16 20:40 Pulse Ox 94 L 10/15/16 21:00 - Labs Result Diagrams: 10/15/16 05:54 10/15/16 05:54 Labs: Laboratory Results - last 24 hr 10/15/16 10/15/16 05:54 10:53 Neutrophils % (Manual) 90 H Band Neutrophils % 4 H Lymphocytes % (Manual) 2 L Monocytes % (Manual) 3 Eosinophils % (Manual) 1 Toxic Granulation Present Platelet Estimate Slightly decreased L Polychromasia Slight Hypochromasia (manual) Slight Poikilocytosis (manual Slight Basophilic Stippling Slight Anisocytosis (manual) Slight Microcytosis (manual) Slight Macrocytosis (manual) Slight Target Cells Slight Ovalocytes Slight % Saturation 41 Ferritin 3970.0 Assessment & Plan - Assessment and Plan (Free Text) Assessment: 76 year old male with PMHx significant for Lung Ca with bone metastasis and mediastinal mass in lower right neck, HTN, DM II,HLD, CKD, presents with increased work of breathing secondary to cancer pushing against trachea narrowing the airway. Patient had an episode of respiratory distress earlier requiring BiPAP. Patient now DNR/DNI per family's wishes with comfort care measures in place. Plan: (1) Renal failure (ARF), acute on chronic 10/15: Hospice- Withdrawal of aggressive medical interventions 10/14: Patient remains anuric at this time Poor prognosis Discontinuing HD (2) Pneumonia 10/15: Hospice- Withdrawal of aggressive medical interventions 10/14: CXRAY showing worsening opacification of left lung 10/13: At this time the patient is on Bipap - now DNR and DNI. Weaning down Pneumonia complicated by history of lung cancer. Labs discontinued Acetaminophen for fever (3) Hyperkalemia 6: Hospice- Withdrawal of aggressive medical interventions (4) Carcinoma, lung 10/15: Hospice- Withdrawal of aggressive medical interventions Patient with Mets to the bone and right mediastinal mass in right lower neck. Patient follows with Dr. Fored as outpatient. Recent chemo 2 weeks ago. Radiation as outpatient with Dr. Thomas. Morphine 2 mg IVP Q4H PRN (5) History of COPD (chronic obstructive pulmonary disease) 10/15: Hospice- Withdrawal of aggressive medical interventions 10/13: Recent CT scan showing a lot of emphesematous changes ABG on admission was 7.26/41/88/18.4/-8.3/97.6 Weaning off BIPAP Duonebs discontinued at this time (6) Metabolic acidosis 10/15: Hospice- Withdrawal of aggressive medical interventions 10/13: Ongoing sepsis as well as renal failure. Prognosis is very poor (7) Diabetes mellitus 10/15: Hospice- Withdrawal of aggressive medical interventions Disposition: Pt admitted to hospice care Comfort care measures Morphine PRN Will consider a morphine drip if indicated; Ativan PRN Withdrawal of aggressive medical interventions <Bryon Bright H - Last Filed: 10/17/16 08:12> Results - Vital Signs Recent Vital Signs: Last Vital Signs Temp 97.4 F L 10/16/16 20:00 Pulse 105 H 10/16/16 20:00 Resp 29 H 10/16/16 20:00 BP 124/51 L 10/16/16 20:00 Pulse Ox 96 10/16/16 16:00 - Labs Result Diagrams: 10/15/16 05:54 10/15/16 05:54 Attending/Attestation - Attestation I have personally seen and examined this patient.: Yes I have fully participated in the care of the patient.: Yes I have reviewed all pertinent clinical information: Yes Notes (Text): Medical Attending: Patient is well known to us during this hospitalization and previous hospitalization due to complications with lung cancer. He's been through a lot and family and became anuric, with discussion with family the patient was made DNR/DNI and then hospice care. He was discharged from the ICU level hospital care and moved to hospice care within the hospital. He shortly thereafter . Bryon Bright 10/17/16 08:11 10/17/16 08:12
--- NOTE | 2016-10-16 09:52 | VASCLAB ---
PROCEDURE: Upper Extremity Venous Duplex Exam HISTORY: Arm pain PRIORS: CT Scan Neck 10/12/2016: Large right supraclavicular mass. No prior upper venous exam. Lower ext. venous 10/12/16,negative. TECHNIQUE: Bilateral upper extremity, internal jugular, subclavian, axillary, brachial, ulnar, radial, basilic and upper cephalic veins were evaluated. Flow was assessed with color Doppler, compressibility, assessment of phasic flow and augmentation response. Report prepared by RAJI Dan FINDINGS: RIGHT: 1. Internal Jugular: 1.1. Unable to image/ large mass on right neck area. 2. Subclavian: 2.1. Compressibility - Fully compressible: Thrombus - None : Flow - Phasic: Augmentation -Normal: Reflux - None. 3. Axillary: 3.1. Compressibility - Fully compressible: Thrombus - None : Flow - Phasic: Augmentation -Normal: Reflux - None. 4. Brachial: 4.1. Compressibility - Fully compressible: Thrombus - None: Flow - Phasic: Augmentation -Normal: Reflux - None. 5. Ulnar: 5.1. Compressibility - Fully compressible: Thrombus - None: Flow - Phasic: Augmentation -Normal: Reflux - None. 6. Radial: 6.1. Compressibility - Fully compressible: Thrombus - None: Flow - Phasic: Augmentation - Normal: Reflux - None. 7. Cephalic: (upper arm only) not visible in the forearm. 7.1. Compressibility - Fully compressible: Thrombus - None: Flow - Phasic: Augmentation -Normal: Reflux - None. 8. Basilic: 8.1. Not visualized. LEFT: 1. Internal Jugular: 1.1. Compressibility - Fully compressible: Thrombus - None : Flow - Phasic: Augmentation -Normal: Reflux - None. 2. Subclavian: 2.1. Compressibility - Fully compressible: Thrombus - None : Flow - Phasic: Augmentation -Normal: Reflux - None. 3. Axillary: 3.1. Compressibility - Fully compressible: Thrombus - None : Flow - Phasic: Augmentation -Normal: Reflux - None. 4. Brachial: 4.1. Compressibility - Fully compressible: Thrombus - None: Flow - Phasic: Augmentation -Normal: Reflux - None. 5. Ulnar: 5.1. Compressibility - Fully compressible: Thrombus - None: Flow - Phasic: Augmentation -Normal: Reflux - None. 6. Radial: 6.1. Compressibility - Fully compressible: Thrombus - None: Flow - Phasic: Augmentation - Normal: Reflux - None. 7. Cephalic: 7.1. Not visualized. 8. Basilic: 8.1. Not visualized. OTHER FINDINGS: Right: Unable to image the right internal jugular vein, due to large mass present. The right basilic and forearm cephalic veins, were not visualized. Left: The left basilic and cephalic veins were not visualized. IMPRESSION: 1. No evidence of deep vein thrombosis in bilateral upper extremities, for those imaged veins. Right internal jugular vein was not imaged secondary to large neck mass. 2. Please refer to the list above, for detailed imaging information.
--- NOTE | 2016-10-16 11:05 | CP.PCM.PN ---
<Opal Steele - Last Filed: 10/16/16 16:27> Subjective - Date & Time of Evaluation Date of Evaluation: 10/16/16 Time of Evaluation: 09:00 - Subjective Subjective: Internal medicine progress note for Hospitalist service- Opal Steele, PGY-1 Pt S & E at bedside. Pt unresponsive to verbal or tactile stimuli. Per nursing - no events overnight , pt recently given sedation. Objective - Vital Signs/Intake and Output Vital Signs (last 24 hours): Temp Pulse Resp BP Pulse Ox 97.7 F 103 H 26 H 133/59 L 94 L 10/16/16 08:00 10/16/16 10:09 10/15/16 21:00 10/16/16 10:09 10/15/16 21:00 - Medications Medications: Current Medications Acetaminophen (Tylenol 650 Mg Supp) 650 mg VT Q4 PRN PRN Reason: Fever >100.4 F Bisacodyl (Dulcolax) 10 mg VT Q72H PRN PRN Reason: Constipation Lorazepam (Ativan) 1 mg IVP Q4H PRN PRN Reason: Agitation Last Admin: 10/16/16 06:14 Dose: 1 mg Morphine Sulfate (Morphine) 1 mg IV Q2 PRN PRN Reason: Pain, moderate (4-7) Last Admin: 10/16/16 10:51 Dose: 1 mg Scopolamine (Transderm-Scop) 1 patch TD Q3D JACKIE Last Admin: 10/15/16 23:01 Dose: 1 patch - Labs Labs: 10/15/16 05:54 10/15/16 05:54 - Constitutional Appears: Non-toxic, No Acute Distress, Cachectic - Head Exam Head Exam: ATRAUMATIC, NORMAL INSPECTION, NORMOCEPHALIC - Eye Exam Eye Exam: Normal appearance. absent: EOMI, PERRL Pupil Exam: Fixed, Miosis. absent: NORMAL ACCOMODATION - ENT Exam ENT Exam: Mucous Membranes Moist, Normal Exam - Neck Exam Neck Exam: Normal Inspection - Respiratory Exam Respiratory Exam: absent: Chest Wall Tenderness, Clear to Ausculation Bilateral (coarse BS B/L), Respiratory Distress, NORMAL BREATHING PATTERN (paradoxical breathing pattern) - Cardiovascular Exam Cardiovascular Exam: Tachycardia, +S1, +S2 - GI/Abdominal Exam GI & Abdominal Exam: Soft, Normal Bowel Sounds. absent: Distended - Extremities Exam Extremities Exam: Normal Inspection. absent: Pedal Edema - Neurological Exam Neurological Exam: absent: Alert, Awake, Oriented x3 Additional comments: sedated on non re-breather - Psychiatric Exam Additional comments: unable to assess, pt sedated, unresponsive to verbal or tactile stimuli - Skin Skin Exam: Dry, Intact, Normal Color, Warm Assessment and Plan - Assessment and Plan (Free Text) Assessment: (1) Renal failure (ARF), acute on chronic 10/15: Hospice- Withdrawal of aggressive medical interventions 10/14: Patient remains anuric at this time 10/13: Overall prognosis is very poor. I discussed this with the family member at bedside (daughter) also patient's at bedside as well. I explained to them the urine output was anuric and also the creatine remained elevated. Patient was made DNR and DNI previous night after ICU discussed with family. Patient is on IVF with bicarb at this time. BUN 100, Cr 8.1 on admission. No emergent HD at this time. . Renal US b/l hydronephrosis and possible non obstructing right lower pole urolith. (2) Pneumonia 10/15: Hospice- Withdrawal of aggressive medical interventions 10/14: CXRAY showing worsening opacification of left lung 10/13: At this time the patient is on Bipap - now DNR and DNI. Pneumonia complicated by history of lung cancer. WBC on admission 15.9 with left shift. Tachycardic HR 110's. Afebrile. Lactid Acid: 2.4 on admission. F/u repeat Lactid Acid. CXR shows increased density on left side of the lung in comparison to Chest X- Ray done on 09/07/16. (3) Hyperkalemia 10/15: Hospice- Withdrawal of aggressive medical interventions 10/13: Ongoing renal failure K+ on admission 6.1 (4) Carcinoma, lung 10/15: Hospice- Withdrawal of aggressive medical interventions Patient with Mets to the bone and right mediastinal mass in right lower neck. Patient follows with Dr. Forde as outpatient. Recent chemo 2 weeks ago. Radiation as outpatient with Dr. Thomas. Morphine 2 mg IVP Q4H PRN (5) History of COPD (chronic obstructive pulmonary disease) 10/15: Hospice- Withdrawal of aggressive medical interventions 10/13: Recent CT scan showing a lot of emphesematous changes ABG on admission shows 7.26/41/88/18.4/-8.3/97.6 Duonebs Q6H PRN- d/c'd Scopalamine (6) Metabolic acidosis 10/15: Hospice- Withdrawal of aggressive medical interventions 10/13: Ongoing sepsis as well as renal failure. Prognosis is very poor (7) Diabetes mellitus /: Hospice- Withdrawal of aggressive medical interventions ISS ACCUCHECKS ACHS (8) Prophylactic measure SCDs Chemical AC contraindicated due to history of recent GI bleed 08/2016. Protonix 40 mg IVP daily Dispo: Pt admitted to hospice care Comfort care measures Morphine PRN Will consider a morphine drip if indicated Ativan PRN Withdrawal of aggressive medical interventions DW attending <Bryon Bright - Last Filed: 10/16/16 16:41> Objective - Vital Signs/Intake and Output Vital Signs (last 24 hours): Temp Pulse Resp BP Pulse Ox 97.5 F L 102 H 32 H 136/59 L 94 L 10/16/16 13:00 10/16/16 13:00 10/16/16 13:00 10/16/16 13:00 10/15/16 21:00 - Medications Medications: Current Medications Acetaminophen (Tylenol 650 Mg Supp) 650 mg VT Q4 PRN PRN Reason: Fever >100.4 F Bisacodyl (Dulcolax) 10 mg VT Q72H PRN PRN Reason: Constipation Lorazepam (Ativan) 1 mg IVP Q2H PRN PRN Reason: Agitation Morphine Sulfate (Morphine) 2 mg IV Q2 PRN PRN Reason: Pain, moderate (4-7) Last Admin: 10/16/16 15:27 Dose: 2 mg Scopolamine (Transderm-Scop) 1 patch TD Q3D JACKIE Last Admin: 10/15/16 23:01 Dose: 1 patch - Labs Labs: 10/15/16 05:54 10/15/16 05:54 Attending/Attestation - Attestation I have personally seen and examined this patient.: Yes I have fully participated in the care of the patient.: Yes I have reviewed all pertinent clinical information, including history, physical exam and plan: Yes Notes (Text): Medical attending: Patient was seen and examined by me, agrees the above note by manager medical affairs. Currently the patient remains in the intensive care unit bed 12 at this time I saw the patient very early in the morning as well as later on during rounds with the resident. Family was present during our second meeting with the patient. I filled out additional paperwork for compassionate care hospice at this faxed. When I saw him he was nonverbal, he was not responding to any stimuli, in the morning he appeared to be breathing very fast about 25-30 respirations per minute. By the afternoon when I saw him again it had slowed down wraps to 20 respirations to minute regardless his breathing pattern his shallow. As mentioned before the patient has a history of extensive lung malignancy as well as complications with pneumonia, he has and uric with a very elevated CKD/renal failure the family no longer wants hemo-dialysis to be given. At this time he still hospice care - he currently has morphine order 2 mg IV every 2hr as well as IV Ativan that can be given every every 2 hours as well. He is getting IV morphine, from what it appears he appears to be comfortable with the regimen that we currently have him on at this time, and probably he will not require a morphine ggt thank you Bryon Bright
--- NOTE | 2016-10-16 13:20 | CP.PCM.PN ---
Subjective - Date & Time of Evaluation Date of Evaluation: 10/16/16 Time of Evaluation: 13:10 - Subjective Subjective: Events noted; daughter has decided to have comfort care only. Dialysis was uncomplicated but patient will proceed to hospice now Renal sono confirmed bilat hydro; if patient going to hospice would not treat this. Discussed with daughter at length. Objective - Vital Signs/Intake and Output Vital Signs (last 24 hours): Temp Pulse Resp BP Pulse Ox 97.7 F 103 H 26 H 133/59 L 94 L 10/16/16 08:00 10/16/16 10:09 10/15/16 21:00 10/16/16 10:09 10/15/16 21:00 - Medications Medications: Current Medications Acetaminophen (Tylenol 650 Mg Supp) 650 mg ND Q4 PRN PRN Reason: Fever >100.4 F Bisacodyl (Dulcolax) 10 mg ND Q72H PRN PRN Reason: Constipation Lorazepam (Ativan) 1 mg IVP Q4H PRN PRN Reason: Agitation Last Admin: 10/16/16 12:14 Dose: 1 mg Morphine Sulfate (Morphine) 1 mg IV Q2 PRN PRN Reason: Pain, moderate (4-7) Last Admin: 10/16/16 10:51 Dose: 1 mg Scopolamine (Transderm-Scop) 1 patch TD Q3D JACKIE Last Admin: 10/15/16 23:01 Dose: 1 patch - Labs Labs: 10/15/16 05:54 10/15/16 05:54 - Constitutional Appears: In Acute Distress, Cachectic, Chronically Ill - Head Exam Head Exam: ATRAUMATIC, NORMAL INSPECTION - Neck Exam Neck Exam: Normal Inspection. absent: Tenderness - Respiratory Exam Respiratory Exam: Rhonchi, Respiratory Distress - Cardiovascular Exam Cardiovascular Exam: Tachycardia, +S1 - GI/Abdominal Exam GI & Abdominal Exam: Soft. absent: Tenderness - Extremities Exam Extremities Exam: absent: Pedal Edema, Tenderness - Neurological Exam Neurological Exam: Altered, Motor Sensory Deficit - Skin Skin Exam: Dry, Warm Assessment and Plan (1) Lung cancer Status: Acute (2) Metastatic cancer to bone Status: Acute (3) COPD (chronic obstructive pulmonary disease) Status: Chronic (4) Anuria Status: Acute (5) CK (acute kidney injury) Status: Acute - Assessment and Plan (Free Text) Plan: comfort care as per family wishes
[2016-10-16 16:56] VITALS: O2SAT 96
[2016-10-16 20:15] VITALS: BP 124/51; PULSE 105; RESP 29; TEMP 97.4
== END 2016-10-16 21:00 | disposition hospice, inpatient (51) | DRG 871 ==
LOC: C.ER 22:15 → C.9E 10-12 00:04 → C.9I 10-12 08:00
PROVIDERS: ADMIT Family Medicine; ATTEND Family Medicine
PROC: 5A09457 Assistance with Respiratory Ventilation, 24-96 Consecutive Hours, Continuous Positive Airway Pressure (ICD-10-PCS; principal; 2016-10-12)
PROC: 06HM33Z Insertion of Infusion Device into Right Femoral Vein, Percutaneous Approach (ICD-10-PCS; 2016-10-14)
PROC: 5A1D00Z (ICD-10-PCS; 2016-10-14)
DX: A41.9 Sepsis, unspecified organism (principal); J18.9 Pneumonia, unspecified organism; J96.02 Acute respiratory failure with hypercapnia; N17.9 Acute kidney failure, unspecified; C78.7 Secondary malignant neoplasm of liver and intrahepatic bile duct; R18.8 Other ascites; E87.2 Acidosis; C79.51 Secondary malignant neoplasm of bone; C34.90 Malignant neoplasm of unspecified part of unspecified bronchus or lung; R65.20 Severe sepsis without septic shock; E11.22 Type 2 diabetes mellitus with diabetic chronic kidney disease; E87.5 Hyperkalemia; J43.9 Emphysema, unspecified; E86.0 Dehydration; I12.9 Hypertensive chronic kidney disease with stage 1 through stage 4 chronic kidney disease, or unspecified chronic kidney disease; D64.9 Anemia, unspecified; N18.9 Chronic kidney disease, unspecified; E78.00 Pure hypercholesterolemia, unspecified; M19.90 Unspecified osteoarthritis, unspecified site; Z87.891 Personal history of nicotine dependence; R22.1 Localized swelling, mass and lump, neck; Z79.01 Long term (current) use of anticoagulants; Z66 Do not resuscitate; Z51.5 Encounter for palliative care

== ENCOUNTER 2016-10-15 15:19 | Inpatient (IN) | payer OTHER ==
[2016-10-17 00:59] VITALS: RESP 12
[2016-10-17 01:06] VITALS: BP 50/29; PULSE 94; TEMP 98.2
--- NOTE | 2016-10-17 07:43 | CP.PCM.PRO ---
Pronouncement of Note - Clinical Findings Physical Exam: No Response Verbal/Painful Stimuli, Absent Peripheral Pulses{ Carotid & Femoral}, Absent Heart & Breath Sounds, No Pupillary Light Reflex, No Corneal Reflex, Pupils Fixed & Dilated, Absence of Vital Signs - Pronouncement Time Time of Pronouncement of : 23:05 (10/16/16) - Notifications Pronouncement Notifications: Family Notified, Atending Notified - [place] [id number] Additional Comments: I was paged from nursing staff that pt was no longer breathing and had no pulse. I went to see pt, family at bedside. Physical exam performed. Family aware and attending was notified.
--- NOTE | 2016-10-17 07:48 | CP.PCM.DIS ---
<Brian Hardin - Last Filed: 10/17/16 07:43> Provider - Provider Date of Admission: 10/15/16 15:19 Attending physician: Bryon Bright DO Time Spent in preparation of Discharge (in minutes): 31 Hospital Course - Hospital Course Hospital Course: On admission 76 year old male with PMHx of lung cancer with bone mets, DM, CKD presents to the ED with daughter for shortness of breath, malaise and decreased PO intake for 4 days. Patient is asleep, difficult to arouse from sleep and cannot answer ROS at this time. History as per daughter at bedside. Daughter has noticed patient has been intermittently SOB for the past 4 days. He has been eating very little and she has been feeding him Ensure supplement intermittently. No fevers or chills reported but admits to light dry cough. Patient's cough was reportedly worse 2 weeks ago and was given unknown "medicine " by Dr. Forde, which made it better. Daughter also reports patient has been having some episodes of confusion for the past 4 days and has been calling his parents who are long ago . His last chemotherapy was 2 weeks ago. No chest pain, fevers, chills, nausea, vomiting, diarrhea, constipation, hemoptysis , recent falls. No sick contacts or recent travel. Patient was recently admitted in August of 2016 for GI bleed. Duodenal ulcers treated during EGD on 09/02 with bipolar cautery and epinephrine. Patient was also intubated during same admission. As stated in discharge summary: Pt admitted to hospitalist service; however began having increased work of breathing requiring BiPAP. With concerns for possible respiratory distress, patient observed but then transferred to ICU for close monitoring. CTA images were reviewed with signs of neck mass pushing against trachea, nearly collapsing it. Plans for further management of care were discussed with daughter. Daughter initially needed time to decide and finally DNR/DNI code status initiated. Daughter initially wanted hospice measures but then felt convinced to do more for father's care. Patient's daughter had conversation with Nephrology to which patient began dialysis. Daughter had long discussion with tin assorter regarding risks versus benefits of dialysis particularly regarding the poor cancer prognosis. Patient to continue with dialysis with considerations for dependency on BiPAP and lung cancer metastasis. Patient's daughter then decided upon comfort care hospice measures. Hospice shipping and receiving coordinator came to discuss suggested medical agents to aid with palliative efforts. On hospital course I was paged from nursing staff that pt was no longer breathing and had no pulse. I went to see pt, family at bedside. Physical exam performed. Pt was not responsive to verbal/painful stimulit, there was absent carotid and femoral pulses, absent heart/breath sounds, no pupillary light reflex, no corneal light reflex, pupils were fixed and dilated. Family aware and attending was notified. Time of : 2305 on 10/16/16 - Date & Time of H&P Date of H&P: 10/15/16 Time of H&P: 19:32 Discharge Exam - Eye Exam Pupil Exam: absent: PERRL Additional comments: No corneal reflex, no pupillary response to light, fixed and dilated - Respiratory Exam Additional comments: No breath sounds - Cardiovascular Exam Additional comments: No heart sounds - Skin Additional comments: cool Discharge Plan - Follow Up Plan Condition: GOOD Disposition: WITH WITHOUT AUTOPSY <Bryon Bright - Last Filed: 10/17/16 08:59> Provider - Provider Date of Admission: 10/15/16 15:19 Attending physician: Bryon Bright, DO Attending/Attestation - Attestation I have personally seen and examined this patient.: Yes I have fully participated in the care of the patient.: Yes I have reviewed all pertinent clinical information, including history, physical exam and plan: Yes Notes (Text): 10/17/16 08:58 Medical Attending: Patient overnight. Reviewed above note by resident. This is a patient who is well known to us from previous admission due to complications of the lung cancer as well as chronic kidney disease. EDRS has been filled out thank you Bryon Bright
== END 2016-10-16 23:05 | DRG 181 ==
LOC: C.3T 15:19 → UNDOADMIN 10-16 15:19 → C.3T 10-16 15:19
PROVIDERS: ADMIT Hospitalist; ATTEND Hospitalist
DX: C34.90 Malignant neoplasm of unspecified part of unspecified bronchus or lung (principal); C79.51 Secondary malignant neoplasm of bone; R22.1 Localized swelling, mass and lump, neck